=== PATIENT | female | born 1940 | race Caucasian/White ===

== ENCOUNTER → 2020-03-28 10:53 | Outpatient (BNVA) | payer MEDICARE, SELFPAY | PROVIDERS: Visit Provider Internal Medicine | DX: J44.9 Chronic obstructive pulmonary disease, unspecified (principal); J96.92 Respiratory failure, unspecified with hypercapnia; J96.91 Respiratory failure, unspecified with hypoxia; Z99.81 Dependence on supplemental oxygen; Z79.51 Long term (current) use of inhaled steroids | CPT/HCPCS: 99213 ==

== ENCOUNTER → 2020-06-22 11:39 | Outpatient (BNVA) | payer MEDICARE, SELFPAY | PROVIDERS: Visit Provider Internal Medicine | DX: Z13.89 Encounter for screening for other disorder (principal) | CPT/HCPCS: Q3014 ==

== ENCOUNTER 2020-07-28 04:45 | Emergency (ER) | payer MEDICARE, SELFPAY ==
[2020-07-28 05:11] VITALS: BP 130/69; PULSE 77; RESP 16; TEMP 36.8; O2SAT 96; BMI 28.5
[2020-07-28 06:00] VITALS: PULSE 80; RESP 16; TEMP 36.8; O2SAT 96
--- NOTE | 2020-07-28 06:37 | ED.SKABFB ---
HPI - Skin/Abscess/Foreign Bdy General Chief complaint: Back Pain/Injury Stated complaint: MID BACK PAIN FOR DAYS, NO INJURY Time Seen by Provider: 07/28/20 06:37 Source: patient Mode of arrival: ambulatory Limitations: no limitations History of Present Illness HPI narrative: 80 yo female L back pain and rash x 2 days - no prior episodes of shingles on tramadol at home for pain MD complaint: rash Onset (ago): day(s) (2) Location: back Severity: moderate Quality: burning Pain Consistency: constant Relieving factors: none Exacerbating factors: none Context: none Associated symptoms: denies other symptoms Treatments prior to arrival: none Related Data Home Medications Medication Instructions Recorded Confirmed duloxetine 30 mg capsule,delayed mg PO 03/07/20 03/28/20 release metoprolol succinate 50 mg mg PO 03/07/20 03/28/20 tablet,extended release 24 hr calcium carbonate 600 mg calcium 600 mg PO DAILY 03/28/20 03/28/20 (1,500 mg) tablet furosemide 40 mg tablet 40 mg PO Q OTHER DAY 07/04/20 prednisone 10 mg tablet mg PO 07/04/20 clonazepam 1 mg tablet 1 mg PO BID 07/18/20 Previous Rx's Medication Instructions Recorded prednisone 5 mg tablet 15 mg PO DAILY 30 Days #90 tab 05/20/20 ipratropium 0.5 mg-albuterol 3 mg 3 ml INHALATION 6XD #180 ml 07/15/20 (2.5 mg base)/3 mL nebulization soln omeprazole 20 mg capsule,delayed 20 mg PO DAILY #90 cap 07/16/20 release albuterol sulfate 90 mcg/actuation 2 puff INHALATION Q4H 90 Days #3 ea 07/20/20 aerosol inhaler prednisone 40 mg PO DAILY 5 Days #10 tab 07/28/20 valacyclovir 1,000 mg PO TID 10 Days #30 tab 07/28/20 Allergies Allergy/AdvReac Type Severity Reaction Status Date / Time Penicillins Allergy Mild ANAPHYLAXIS Verified 07/04/20 13:19 levofloxacin [Levaquin] Allergy Unknown Unknown Verified 07/04/20 13:19 morphine [Morphine] Allergy Unknown SWELLING Verified 07/04/20 13:19 Review of Systems Review of Systems: Constitutional : No Fever, No Chills ENT/Mouth : No sore throat, No Rhinorrhea Eyes: No Eye Pain, No Swelling, No Redness Cardiovascular : No Chest Pain, No SOB Respiratory : No Cough, No Sputum Gastrointestinal : No Nausea, No Vomiting, No Diarrhea, No abdominal Pain Genitourinary : No Dysuria, No Hematuria Musculoskeletal : No joint pain, No Myalgias, No Joint Swelling Skin : No Skin Lesions, positive skin rash Neuro : No Weakness, No Numbness, No Headache Psych : No Anxiety, No Depression Heme/Lymph: No Bruising, No Bleeding,No Lymphadenopathy Endocrine : No Polyuria, No Polydipsia All other systems reviewed and are negative [facility] Past Medical History Attestation statement: The following information was validated with the patient. Medical History COPD (chronic obstructive pulmonary disease) COPD (chronic obstructive pulmonary disease) Respiratory failure with hypoxia and hypercapnia Family History Family History (Updated 07/04/20 @ 13:24 by Sandrita Yousif) Mother No problems noted. Father No problems noted. Social History Social History Alcohol intake: never Smoking Status: Never smoker Smoked in Last 30 Days: No Use of substances other than those prescribed or required for medical reasons: No Advance Directives: No Physical Exam Vital Signs: Vital Signs: Last Vital Signs Temp 98.2 F 07/28/20 06:00 Pulse 80 07/28/20 06:00 Resp 16 07/28/20 06:00 BP 130/69 07/28/20 05:11 Pulse Ox 96 07/28/20 06:00 Body Mass Index 28.5 Appearance: Alert. Oriented X3. No acute distress. Eyes: Pupils equal, round and reactive to light. ENT: Pharynx normal. Neck: Normal inspection. Neck supple. CVS: Normal heart rate and rhythm. Pulses normal. Respiratory: No respiratory distress. Breath sounds normal. Abdomen: Soft and nontender. Back: L flank dermatoma pattern under scapula vesicles noted - shingles Skin: Skin warm and dry. Normal skin color. Normal skin turgor. Extremities: No lower extremity edema. No calf ttp Neuro: Oriented X 3. No motor deficit. No sensory deficit. MDM - Skin/Abscess/Foreign Bdy MDM Narrative Medical decision making narrative: 80 yo female with multiple medical problems here with shingles on left flank x 2 days, will start on valtrex and up her steroids, already on tramadol at home - does not tolerate opiates, given precautions to return Discharge Plan Discharge Clinical Impression: Shingles Qualifiers: Herpes zoster complications: without complications Qualified Code(s): B02.9 - Zoster without complications Patient Disposition: Home, Self-Care Instructions: Shingles (ED) Additional Instructions: return to ED for any worsening symptoms or concerns Prescriptions: New prednisone 20 mg tablet 40 mg PO DAILY 5 Days Qty: 10 RF: 0 valacyclovir 1 gram tablet 1,000 mg PO TID 10 Days Qty: 30 RF: 0 No Action prednisone 5 mg tablet 15 mg PO DAILY 30 Days Qty: 90 RF: 1 ipratropium-albuterol 0.5 mg-3 mg(2.5 mg base)/3 mL solution for nebulization 3 ml inhalation 6XD Qty: 180 RF: 0 omeprazole 20 mg capsule,delayed release(DR/EC) 20 mg PO DAILY Qty: 90 RF: 1 albuterol sulfate 90 mcg/actuation HFA aerosol inhaler 2 puff inhalation Q4H 90 Days Qty: 3 RF: 1 calcium carbonate [Calcium 600] 600 mg calcium (1,500 mg) tablet 600 mg PO DAILY RF: 0 duloxetine 30 mg capsule,delayed release(DR/EC) PO RF: 0 metoprolol succinate 50 mg tablet extended release 24 hr PO RF: 0 Referrals: Rolo Ford MD [Primary Care Provider] - 2 days (if not better)
== END 2020-07-28 07:39 | disposition home or self-care (01) ==
PROVIDERS: Emergency Provider Emergency Medicine; PCP Internal Medicine
DX: B02.9 Zoster without complications (principal); J44.9 Chronic obstructive pulmonary disease, unspecified
CPT/HCPCS: 99283; 99284

== ENCOUNTER 2020-08-04 06:54 | Inpatient (IN) | payer MEDICARE, SELFPAY ==
[2020-08-04] VITALS (9 sets, daily range): BP systolic 121–165; BP diastolic 65–93; PULSE 98–111; RESP 16–24; TEMP 36.1–36.8; O2SAT 94–100; BMI 28.5
--- NOTE | ~2020-08-04 | XR_ITS ---
EXAMINATION: XR CHEST CLINICAL INFORMATION: Dyspnea COMPARISON: March 06, 2019 and November 23, 2018 TECHNIQUE: AP portable view of the chest was obtained. FINDINGS: Within the left upper lobe there is a 2.3 cm density for which malignancy cannot be excluded. There is stable left breast increased markings. There is some diminished vascularity within the upper lobes with some mild hyperinflation consistent with some degree of COPD. Heart normal size. No evidence of pulmonary edema. Multiple old healed rib fractures present. There is scoliosis of the thoracic spine convex left. Degenerative change of both shoulders evident as well as calcific tendinitis of the right shoulder. XR/XR chest 1V IMPRESSION: 2.3 cm left upper lobe lesion for which malignancy cannot be excluded. CT would be of help in further evaluation. COPD.
--- NOTE | 2020-08-04 07:00 | ED_ITS ---
HPI - SOB/Dyspnea General Chief Complaint: Dyspnea Stated Complaint: SOB W/ANXIETY Time Seen by Provider: 08/04/20 07:00 Source: patient and EMS Mode of arrival: EMS Limitations: no limitations History of Present Illness MD elicited complaint: shortness of breath, cough and anxiety Pertinent past history: COPD and asthma Onset (ago): day(s) (1) Context: recent illness, anxiety and other (notes her concentrator stopped working yesterday and the company gave her a hard time) Timing: progressively worsening Severity: moderate Exacerbating factors: exertion, movement and coughing Relieving factors: oxygen, rest and bronchodilators Known history of: COPD and asthma Associated symptoms: other (has significant L sided pain at the site of her shingles rash) Treatment prior to arrival: oxygen Related Data Home Medications Medication Instructions Recorded Confirmed duloxetine 30 mg capsule,delayed 30 mg PO DAILY 03/07/20 08/04/20 release metoprolol succinate 50 mg 50 mg PO DAILY 03/07/20 08/04/20 tablet,extended release 24 hr calcium carbonate 600 mg calcium 600 mg PO DAILY 03/28/20 08/04/20 (1,500 mg) tablet furosemide 40 mg tablet 40 mg PO Q OTHER DAY 07/04/20 08/04/20 prednisone 10 mg tablet 10 mg PO DAILY 07/04/20 08/04/20 tramadol 50 mg tablet 50 mg PO DAILY PRN 08/02/20 08/04/20 albuterol sulfate 2 puff INHALATION Q4H PRN 08/04/20 08/04/20 cholecalciferol (vitamin D3) 25 mcg PO DAILY 08/04/20 08/04/20 ipratropium-albuterol 3 ml INHALATION Q4H PRN 08/04/20 08/04/20 prednisone 5 mg PO DAILY 08/04/20 08/04/20 vitamin B complex [Super B Complex] 1 cap PO DAILY 08/04/20 08/04/20 Previous Rx's Medication Instructions Recorded omeprazole 20 mg capsule,delayed 20 mg PO DAILY #90 cap 07/16/20 release valacyclovir 1,000 mg PO TID 10 Days #30 tab 07/28/20 clonazepam 1 mg tablet 1 mg PO BID #30 tab 08/02/20 albuterol sulfate 90 mcg/actuation 2 puff INHALATION Q4-6H PRN 30 08/04/20 aerosol inhaler Days #8.5 g Allergies Allergy/AdvReac Type Severity Reaction Status Date / Time Penicillins Allergy Mild ANAPHYLAXIS Verified 08/03/20 06:05 levofloxacin [Levaquin] Allergy Unknown Unknown Verified 08/03/20 06:05 morphine [Morphine] Allergy Unknown SWELLING Verified 08/03/20 06:05 Review of Systems Review of Systems: Constitutional : No Fever, No Chills ENT/Mouth : No sore throat, No Rhinorrhea, No Swallowing Difficulty Eyes: No Eye Pain, No Swelling, No Redness Cardiovascular : No Chest Pain, positive SOB, No Orthopnea, no Edema Respiratory : pos Cough, No Sputum, No Wheezing, positive dyspnea Gastrointestinal : No Nausea, No Vomiting, No Diarrhea, No abdominal Pain, No Hematochezia, No Melena Genitourinary : No Dysuria, No Urinary Frequency, No Hematuria Musculoskeletal : No joint pain, No Myalgias, pos back pain Skin : pos Skin Lesions, pos rash Neuro : No Weakness, No Numbness, No Dizziness, No Headache Psych : No Anxiety/Panic, No Depression Heme/Lymph: No Bruising, No Lymphadenopathy Endocrine : No Polyuria, No Polydipsia All other systems reviewed and are negative [facility] Past Medical History Attestation statement: The following information was validated with the patient. Medical History COPD (chronic obstructive pulmonary disease) COPD (chronic obstructive pulmonary disease) Herpes zoster Respiratory failure with hypoxia and hypercapnia Family History Family History Mother No problems noted. Father No problems noted. Social History Social History Alcohol intake: never Smoking Status: Never smoker Use of substances other than those prescribed or required for medical reasons: No Advance Directives: No Advance Directives Information Provided: No Physical Exam Vital Signs: Vital Signs: Last Vital Signs Temp 98.3 F 08/04/20 07:12 Pulse 98 08/04/20 08:00 Resp 18 08/04/20 08:00 BP 148/65 H 08/04/20 07:12 Pulse Ox 97 08/04/20 08:00 Body Mass Index 28.5 Appearance: Alert. Oriented X3. Anxious, mild acute distress. Eyes: Pupils equal, round and reactive to light. ENT: Pharynx normal. Neck: Normal inspection. Neck supple. CVS: Normal heart rate and rhythm. Pulses normal. Respiratory: mild respiratory distress - short phrases, tachypnea. Breath sounds decreased throughout. Abdomen: Soft and nontender. Skin: Skin warm and dry. desquamating vesicular rash noted on L trunk at the site of her prior shingles there are areas of some scant drainage as well as some mild sweling and moderate erythema particularly under breast with scant bloody ooze as well appears secondarily infected Extremities: No lower extremity edema. No calf ttp Neuro: Oriented X 3. No motor deficit. No sensory deficit. Course Course Course Narrative: start on ceftriaxone and doxy for COPD and secondary cellulitis of her zoster still having pain at zoster site at this time will request admission for shingles with secondary celluitis and COPD MDM - SOB/Dyspnea MDM Narrative Medical decision making narrative: 80 yo female with COPD, asthma recent dx of shingles placed on valtrex - rash is very painful and the patient notes that it is peeling - there is likely some secondary infection will start on ancef and attempt to get topical acyclovir ointment, also has COPD with increased dyspnea and work of breathing due to her concentrator failing yesterday she went from 2L to 4L NC - neb, IV steroids labs, CXR ordered Lab Data Result diagrams: 08/04/20 08:04 08/04/20 08:05 Labs: Lab Results 08/04/20 08/04/20 08/04/20 Range/Units 08:04 08:04 08:04 WBC 12.2 H (4.8-10.8) X10*3/uL RBC 4.00 L (4.20-5.50) X10*6/uL Hgb 11.8 L (12.0-16.0) g/dl Hct 38.3 (37-47) % MCV 95.8 (80-98) fL MCH 29.5 (27.0-33.0) pg MCHC 30.8 L (31.0-35.0) g/dl RDW 13.5 (11.0-16.0) % Plt Count 245 (160-400) X10*3/uL MPV 9.9 (9.4-12.3) fL Immature Gran % (Auto) 0.3 (0.0-0.4) % Neut % (Auto) 78.5 H (45-73) % Lymph % (Auto) 10.7 L (20-40) % [place] % (Auto) 9.4 (2-11) % Eos % (Auto) 0.8 (0-4) % Baso % (Auto) 0.3 (0-2) % Lymph # (Auto) 1.3 (1.2-4.9) X10*3/uL [place] # (Auto) 1.1 (0.1-1.2) X10*3/uL Eos # (Auto) 0.1 (0.0-0.4) X10*3/uL Baso # (Auto) 0.0 (0.0-0.2) X10*3/uL Abs Immat Gran (auto) 0.04 H (0.00-0.03) X10*3/uL Absolute Neuts (auto) 9.6 H (2.0-8.3) X10*3/uL Absolute Nucleated RBC 0.000 (0.0-0.012) X10*3/uL Nucleated RBC % (auto) 0.0 (0.0-0.2) /100WBC PT 11.4 (10.8-13.0) SEC INR 1.0 (0.9-1.1) APTT 30.6 (24.1-38.0) SEC VBG pH (7.32-7.43) VBG pCO2 mmHg VBG pO2 mmHg VBG HCO3 mmol/L VBG O2 Saturation % VBG Base Excess mmol/L Sodium (135-145) mmol/L Potassium (3.3-5.1) mmol/L Chloride (96-108) mmol/L Carbon Dioxide (22-29) mmol/L Anion Gap (12-20) BUN (9-16) mg/dL Creatinine (0.5-1.4) mg/dL Estim Creat Clear Calc Estimated GFR Random Glucose (60-115) mg/dL Lactic Acid (0.5-2.0) mmol/L Calcium (8.4-10.2) mg/dL Magnesium (1.6-2.6) mg/dL Total Bilirubin (0.0-1.0) mg/dL Direct Bilirubin (0.0-0.5) mg/dL AST (5-31) U/L ALT (0-31) U/L Alkaline Phosphatase (39-117) U/L Troponin I High Sens (<3.5-17.0) ng/L B-Natriuretic Peptide 137 H (<100) pg/mL Total Protein (6.5-8.0) g/dL Albumin (3.5-5.0) g/dL 08/04/20 08/04/20 08/04/20 Range/Units 08:04 08:04 08:05 WBC (4.8-10.8) X10*3/uL RBC (4.20-5.50) X10*6/uL Hgb (12.0-16.0) g/dl Hct (37-47) % MCV (80-98) fL MCH (27.0-33.0) pg MCHC (31.0-35.0) g/dl RDW (11.0-16.0) % Plt Count (160-400) X10*3/uL MPV (9.4-12.3) fL Immature Gran % (Auto) (0.0-0.4) % Neut % (Auto) (45-73) % Lymph % (Auto) (20-40) % Weston % (Auto) (2-11) % Eos % (Auto) (0-4) % Baso % (Auto) (0-2) % Lymph # (Auto) (1.2-4.9) X10*3/uL Weston # (Auto) (0.1-1.2) X10*3/uL Eos # (Auto) (0.0-0.4) X10*3/uL Baso # (Auto) (0.0-0.2) X10*3/uL Abs Immat Gran (auto) (0.00-0.03) X10*3/uL Absolute Neuts (auto) (2.0-8.3) X10*3/uL Absolute Nucleated RBC (0.0-0.012) X10*3/uL Nucleated RBC % (auto) (0.0-0.2) /100WBC PT (10.8-13.0) SEC INR (0.9-1.1) APTT (24.1-38.0) SEC VBG pH 7.36 (7.32-7.43) VBG pCO2 78 mmHg VBG pO2 39 mmHg VBG HCO3 45 mmol/L VBG O2 Saturation 57.0 % VBG Base Excess 16.0 mmol/L Sodium 145 (135-145) mmol/L Potassium 4.0 (3.3-5.1) mmol/L Chloride 95 L (96-108) mmol/L Carbon Dioxide 37 H (22-29) mmol/L Anion Gap 17 (12-20) BUN 24 H (9-16) mg/dL Creatinine 0.70 (0.5-1.4) mg/dL Estim Creat Clear Calc 52.1 Estimated GFR > 60 Random Glucose 144 H (60-115) mg/dL Lactic Acid (0.5-2.0) mmol/L Calcium 9.2 (8.4-10.2) mg/dL Magnesium 2.3 (1.6-2.6) mg/dL Total Bilirubin 0.9 (0.0-1.0) mg/dL Direct Bilirubin 0.4 (0.0-0.5) mg/dL AST 34 H (5-31) U/L ALT 20 (0-31) U/L Alkaline Phosphatase 63 (39-117) U/L Troponin I High Sens 54.3 H (<3.5-17.0) ng/L B-Natriuretic Peptide (<100) pg/mL Total Protein 7.1 (6.5-8.0) g/dL Albumin 4.1 (3.5-5.0) g/dL 08/04/20 Range/Units 08:05 WBC (4.8-10.8) X10*3/uL RBC (4.20-5.50) X10*6/uL Hgb (12.0-16.0) g/dl Hct (37-47) % MCV (80-98) fL MCH (27.0-33.0) pg MCHC (31.0-35.0) g/dl RDW (11.0-16.0) % Plt Count (160-400) X10*3/uL MPV (9.4-12.3) fL Immature Gran % (Auto) (0.0-0.4) % Neut % (Auto) (45-73) % Lymph % (Auto) (20-40) % Weston % (Auto) (2-11) % Eos % (Auto) (0-4) % Baso % (Auto) (0-2) % Lymph # (Auto) (1.2-4.9) X10*3/uL [place]on # (Auto) (0.1-1.2) X10*3/uL Eos # (Auto) (0.0-0.4) X10*3/uL Baso # (Auto) (0.0-0.2) X10*3/uL Abs Immat Gran (auto) (0.00-0.03) X10*3/uL Absolute Neuts (auto) (2.0-8.3) X10*3/uL Absolute Nucleated RBC (0.0-0.012) X10*3/uL Nucleated RBC % (auto) (0.0-0.2) /100WBC PT (10.8-13.0) SEC INR (0.9-1.1) APTT (24.1-38.0) SEC VBG pH (7.32-7.43) VBG pCO2 mmHg VBG pO2 mmHg VBG HCO3 mmol/L VBG O2 Saturation % VBG Base Excess mmol/L Sodium (135-145) mmol/L Potassium (3.3-5.1) mmol/L Chloride (96-108) mmol/L Carbon Dioxide (22-29) mmol/L Anion Gap (12-20) BUN (9-16) mg/dL Creatinine (0.5-1.4) mg/dL Estim Creat Clear Calc Estimated GFR Random Glucose (60-115) mg/dL Lactic Acid 1.7 (0.5-2.0) mmol/L Calcium (8.4-10.2) mg/dL Magnesium (1.6-2.6) mg/dL Total Bilirubin (0.0-1.0) mg/dL Direct Bilirubin (0.0-0.5) mg/dL AST (5-31) U/L ALT (0-31) U/L Alkaline Phosphatase (39-117) U/L Troponin I High Sens (<3.5-17.0) ng/L B-Natriuretic Peptide (<100) pg/mL Total Protein (6.5-8.0) g/dL Albumin (3.5-5.0) g/dL ECG Data Attestation: I personally reviewed and interpreted this ECG as follows: ECG interpretation date: 08/04/20 ECG interpretation time: 07:50 Interpretation: Rate: 111 Rhythm: sinus tachycardia [place]: normal Normal P waves. Normal SHANNON. Normal QRS complex. poor R wave progression ST T wave : nonspecific, no ZURI qTC: normal prior studies: no acute ischemia The study has been interpreted contemporaneously by me. . Discharge Plan Discharge Clinical Impression: Elevated troponin COPD (chronic obstructive pulmonary disease) Qualifiers: COPD type: COPD with acute exacerbation Qualified Code(s): J44.1 - Chronic obstructive pulmonary disease with (acute) exacerbation Shingles Qualifiers: Herpes zoster complications: with other complications Qualified Code(s): B02.8 - Zoster with other complications Cellulitis Qualifiers: Site of cellulitis: trunk Site of cellulitis of trunk: chest wall Qualified Code(s): L03.313 - Cellulitis of chest wall Patient Disposition: Admitted As Inpatient
--- NOTE | 2020-08-04 07:06 | ECG_ITS ---
Test Reason : SOB Blood Pressure : / mmHG Vent. Rate : 111 BPM Atrial Rate : 111 BPM P-R Int : 118 ms QRS Dur : 066 ms QT Int : 320 ms P-R-T Axes : 061 014 067 degrees QTc Int : 435 ms Sinus tachycardia Low voltage QRS Cannot rule out Anteroseptal infarct (cited on or before 23-NOV-2018) Abnormal ECG When compared with ECG of 23-NOV-2018 13:02, No significant change was found Referred By: Vanesa Galvez Electronically Signed By:NICOLE MCALLISTER MD
[2020-08-04] MEDS: Albuterol Sulfate (0.083%) 2.5 MG/3 ML VIAL.NEB 5 MG INHALE (07:25)
[2020-08-04] MEDS: HYDROcodone Bit/Acetam 5/325 TABLET 1 TAB PO (07:35)
[2020-08-04] MEDS: methylPREDNISolone Sod Succ/PF 125 MG/2 ML VIAL 60 MG IVPUSH (08:10)
[2020-08-04 08:13] LABS: MANUAL DIFF FLAG NO
[2020-08-04 08:15] LABS: Basophils Percent Auto 0.3 % (0-2); Eosinophils Absolute Auto 0.1 X10*3/uL (0.0-0.4); Eosinophils Percent Auto 0.8 % (0-4); Hematocrit 38.3 % (37-47); Hemoglobin 11.8 g/dl (12.0-16.0); Imm Gran Abs Auto 0.04 X10*3/uL (0.00-0.03); Imm Gran Pct Auto 0.3 % (0.0-0.4); Lymphocytes Absolute Auto 1.3 X10*3/uL (1.2-4.9); Lymphocytes Percent Auto 10.7 % (20-40); Mean Corpuscular HGB Conc 30.8 g/dl (31.0-35.0); Mean Corpuscular Hemoglobin 29.5 pg (27.0-33.0); Mean Corpuscular Volume 95.8 fL (80-98); Mean Platelet Volume 9.9 fL (9.4-12.3); Monocytes Absolute Auto 1.1 X10*3/uL (0.1-1.2); Monocytes Percent Auto 9.4 % (2-11); Neutrophils Absolute Auto 9.6 X10*3/uL (2.0-8.3); Neutrophils Percent Auto 78.5 % (45-73); Platelet Count 245 X10*3/uL (160-400); Red Cell Distribution Width 13.5 % (11.0-16.0); White Blood Count 12.2 X10*3/uL (4.8-10.8)
[2020-08-04 08:16] LABS: HCO3 VBG 45 mmol/L; PCO2 VBG 78 mmHg; PO2 VBG 39 mmHg; pH VBG 7.36 (7.32-7.43)
[2020-08-04 08:23] LABS: Prothrombin Time 11.4 SEC (10.8-13.0)
[2020-08-04 08:26] LABS: Partial Thromboplastin Time 30.6 SEC (24.1-38.0)
[2020-08-04 08:28] LABS: Lactic Acid 1.7 mmol/L (0.5-2.0)
[2020-08-04] MEDS: Acyclovir 5 % Oint 15 GM TUBE TOPICAL (08:44)
[2020-08-04 08:53] LABS: Alanine Aminotransferase 20 U/L (0-31); Albumin Level 4.1 g/dL (3.5-5.0); Alkaline Phosphatase 63 U/L (39-117); Anion Gap 17 (12-20); Aspartate Amino Transferase 34 U/L (5-31); Bilirubin Direct 0.4 mg/dL (0.0-0.5); Bilirubin Total 0.9 mg/dL (0.0-1.0); Blood Urea Nitrogen 24 mg/dL (9-16); Calcium 9.2 mg/dL (8.4-10.2); Carbon Dioxide 37 mmol/L (22-29); Chloride 95 mmol/L (96-108); Creatinine Clr Calc Pharmacy 52.1; Estimated Glomerular Filt Rate > 60; Glucose Random 144 mg/dL (60-115); Magnesium 2.3 mg/dL (1.6-2.6); Sodium 145 mmol/L (135-145); Total Protein 7.1 g/dL (6.5-8.0)
[2020-08-04 08:53] LABS: B Type Natriuretic Peptide 137 pg/mL (<100)
[2020-08-04 08:54] LABS: Troponin-I High Sensitivity 54.3 ng/L (<3.5-17.0)
[2020-08-04] MEDS: cefTRIAXone sodium 1 GM in 0.9 % Sodium Chloride 50 ML IV (09:00)
[2020-08-04] MEDS: Doxycycline Hyclate 100 MG in 0.9 % Sodium Chloride 250 ML 166.67 MG IV (09:30)
[2020-08-04 09:40] LABS: COVID-19 Test Negative (Negative); IDNOW Serial# 9DD0AD1C
[2020-08-04] MEDS: oxyCODONE HCl Immed Release 5 MG TABLET PO ×3 (10:21→20:07)
[2020-08-04 12:40] LABS: Troponin-I High Sensitivity 50.6 ng/L (<3.5-17.0)
--- NOTE | 2020-08-04 12:50 | PM.IMHP ---
History of Present Illness Date of Service: 08/04/20 Chief Complaint: shortness of breath, left side pain from shingles This is an 80 year old female who presented to the ED with shortness of breath. She states that her concentrator broke and since that time she has been feeling short of breath. She denies any cough, fever, chills. Prior to this she had been doing very well with her COPD. She was diagnosed with shingles on July 28 and prescribed valacyclovir. She reports ongoing pain. In the emergency department she had a white count of 12.2. Troponin was 54.3 and repeat was 50.6. She denies any chest pain. Was concern that her previous herpes zoster was infected and she was started on antibiotics. She required multiple doses of pain medication. For this reason decision was made to admit her for further management. Review of Systems Review of Systems: Yes all other systems are reviewed and are negative Constitutional: Constitutional: Denies chills and Denies fever(s) Cardiovascular: Cardiovascular: Denies chest pain and Reports dyspnea Respiratory: Respiratory: Denies cough and Reports dyspnea Gastrointestinal: Gastrointestinal: Denies abdominal pain [facility] Medical History (Updated 08/04/20 @ 13:20 by DIONI Bhat) COPD (chronic obstructive pulmonary disease) COPD (chronic obstructive pulmonary disease) Generalized anxiety disorder Herpes zoster Respiratory failure with hypoxia and hypercapnia SVT (supraventricular tachycardia) Family History Mother No problems noted. Father No problems noted. Surgical History (Updated 08/04/20 @ 13:20 by DIONI Bhat) H/O cataract extraction H/O right knee surgery History of bunionectomy Hx of cholecystectomy Social History (Updated 08/04/20 @ 13:20 by DIONI Bhta) Alcohol intake: never Smoking Status: Former smoker Use of substances other than those prescribed or required for medical reasons: No Advance Directives: No Advance Directives Information Provided: No Meds Allergies Allergy/AdvReac Type Severity Reaction Status Date / Time Penicillins Allergy Mild ANAPHYLAXIS Verified 08/03/20 06:05 levofloxacin [Levaquin] Allergy Unknown Unknown Verified 08/03/20 06:05 morphine [Morphine] Allergy Unknown SWELLING Verified 08/03/20 06:05 Active Medications: Current Medications Generic Name Dose Route Start Last Admin Trade Name Ivan PRN Reason Stop Dose Admin Cefazolin Sodium 1 gm/ Sodium 50 mls @ 100 mls/hr 08/04/20 12:45 Chloride IV Q8H [facility] Pharmacy Consult 1 each 08/04/20 07:05 Consult Rx Perform Med Rec MISCELLANE ONCE PRN Consult order Home Medications Medication Instructions Recorded Confirmed Last Taken Type duloxetine 30 mg capsule,delayed 30 mg PO DAILY 03/07/20 08/04/20 08/03/20 History release metoprolol succinate 50 mg 50 mg PO DAILY 03/07/20 08/04/20 08/03/20 History tablet,extended release 24 hr calcium carbonate 600 mg calcium 600 mg PO DAILY 03/28/20 08/04/20 08/03/20 History (1,500 mg) tablet furosemide 40 mg tablet 40 mg PO Q OTHER DAY 07/04/20 08/04/20 Unknown History prednisone 10 mg tablet 10 mg PO DAILY 07/04/20 08/04/20 08/03/20 History tramadol 50 mg tablet 50 mg PO DAILY PRN 08/02/20 08/04/20 Unknown History albuterol sulfate 2 puff INHALATION Q4H PRN 08/04/20 08/04/20 08/04/20 History cholecalciferol (vitamin D3) 25 mcg PO DAILY 08/04/20 08/04/20 08/03/20 History ipratropium-albuterol 3 ml INHALATION Q4H PRN 08/04/20 08/04/20 08/04/20 History prednisone 5 mg PO DAILY 08/04/20 08/04/20 08/03/20 History vitamin B complex [Super B Complex] 1 cap PO DAILY 08/04/20 08/04/20 Unknown History Physical Exam Vital Signs and Narrative: Vital Signs: Last Vital Signs Temp 98.2 F 08/04/20 12:40 Pulse 106 H 08/04/20 12:40 Resp 24 H 08/04/20 12:40 BP 152/83 H 08/04/20 12:40 Pulse Ox 98 08/04/20 12:40 Body Mass Index 28.5 Const: Nutritional Appearance: well nourished Orientation/consciousness: patient oriented x3 HENMT: Head: Yes normocephalic and Yes atraumatic Eyes: Sclerae: sclerae normal Chest: Chest palpation & inspection: normal inspection of the chest Resp: Effort & Inspection: no respiratory distress and tachypneic Auscultation: no wheezes and diminished lung sounds Cardio: Rate: regular rate Rhythm: regular rhythm GI: Palpation (GI): Soft to palpation and nontender Skin: Other: Neuro: General: patient oriented x3 Cranial nerves: Yes CN's II-XII intact bilaterally and Yes Bilaterally intact EOM present Extrem: General: Yes normal to inspection Results Labs CBC and Chem 7: 08/04/20 08:04 08/04/20 08:05 Labs: Laboratory Results - last 24 hr 08/04/20 08/04/20 08/04/20 08:04 08:04 08:04 MCV 95.8 MCH 29.5 MCHC 30.8 L RDW 13.5 Plt Count 245 MPV 9.9 Immature Gran % (Auto) 0.3 Neut % (Auto) 78.5 H Lymph % (Auto) 10.7 L [place] % (Auto) 9.4 Eos % (Auto) 0.8 Baso % (Auto) 0.3 Lymph # (Auto) 1.3 [place] # (Auto) 1.1 Eos # (Auto) 0.1 Baso # (Auto) 0.0 Abs Immat Gran (auto) 0.04 H Absolute Neuts (auto) 9.6 H Absolute Nucleated RBC 0.000 Nucleated RBC % (auto) 0.0 PT 11.4 INR 1.0 APTT 30.6 VBG pH VBG pCO2 VBG pO2 VBG HCO3 VBG O2 Saturation VBG Base Excess Anion Gap Estim Creat Clear Calc Estimated GFR Random Glucose Lactic Acid Calcium Magnesium Total Bilirubin Direct Bilirubin AST ALT Alkaline Phosphatase Troponin I High Sens B-Natriuretic Peptide 137 H Total Protein Albumin COVID-19 ([facility]) COVID-19 Clin Com 08/04/20 08/04/20 08/04/20 08:04 08:04 08:05 MCV MCH MCHC RDW Plt Count MPV Immature Gran % (Auto) Neut % (Auto) Lymph % (Auto) [place] % (Auto) Eos % (Auto) Baso % (Auto) Lymph # (Auto) [place] # (Auto) Eos # (Auto) Baso # (Auto) Abs Immat Gran (auto) Absolute Neuts (auto) Absolute Nucleated RBC Nucleated RBC % (auto) PT INR APTT VBG pH 7.36 VBG pCO2 78 VBG pO2 39 VBG HCO3 45 VBG O2 Saturation 57.0 VBG Base Excess 16.0 Anion Gap 17 Estim Creat Clear Calc 52.1 Estimated GFR > 60 Random Glucose 144 H Lactic Acid Calcium 9.2 Magnesium 2.3 Total Bilirubin 0.9 Direct Bilirubin 0.4 AST 34 H ALT 20 Alkaline Phosphatase 63 Troponin I High Sens 54.3 H B-Natriuretic Peptide Total Protein 7.1 Albumin 4.1 COVID-19 ([facility]) COVID-19 Clin Com 08/04/20 08/04/20 08/04/20 08:05 08:14 11:57 MCV MCH MCHC RDW Plt Count MPV Immature Gran % (Auto) Neut % (Auto) Lymph % (Auto) [place] % (Auto) Eos % (Auto) Baso % (Auto) Lymph # (Auto) [place] # (Auto) Eos # (Auto) Baso # (Auto) Abs Immat Gran (auto) Absolute Neuts (auto) Absolute Nucleated RBC Nucleated RBC % (auto) PT INR APTT VBG pH VBG pCO2 VBG pO2 VBG HCO3 VBG O2 Saturation VBG Base Excess Anion Gap Estim Creat Clear Calc Estimated GFR Random Glucose Lactic Acid 1.7 Calcium Magnesium Total Bilirubin Direct Bilirubin AST ALT Alkaline Phosphatase Troponin I High Sens 50.6 H B-Natriuretic Peptide Total Protein Albumin COVID-19 ([facility]) Negative COVID-19 Clin Com See Note Imaging Radiologist's Impressions: Impressions Chest X-Ray 08/04/20 07:06 IMPRESSION: 2.3 cm left upper lobe lesion for which malignancy cannot be excluded. CT would be of help in further evaluation. COPD. Assessment and Plan (1) Elevated troponin: Status: Acute (2) Herpes zoster: Qualifiers: Herpes zoster complications: without complications Qualified Code(s): B02.9 - Zoster without complications Status: Acute This is an 80-year-old female with a history of oxygen and steroid dependent COPD recently diagnosed with herpes zoster who presents to the emergency department with shortness of breath and pain of the zoster site Shortness of breath r/t broken concentrator at home no pna or copd exacerbation continue home supplemental o2, prn breathing treatments, home inhalers Herpes zoster with superimposed bacterial infection no sepsis, tachycardia, tachypnea secondary to shortness of breath, pain -kefzol -pain management -continue valacyclovir Elevated troponin Cardiac enzymes have remained flat, no chest pain Left upper lobe lesion seen on chest x-ray New when compared to previous chest x-ray. Given significant smoking history concerning for malignancy Will discuss with patient regarding further workup, although given advanced lung dz may not be candidate for intervention COPD Continue supplemental oxygen, uses 2-2.5L at home continue home inhalers, prednision The remainder of her home medications will be continued DVT prophylaxis-heparin Code status-DNR/DNI This case was discussed with Dr. Berry
[2020-08-04] MEDS: Heparin Sodium,Porcine 5,000 UNIT/ML VIAL 5000 UNIT SUBCUT (15:39)
[2020-08-04] MEDS: 0.9 % Sodium Chloride Flush 3 ML SYRINGE IVFLUSH (15:40)
[2020-08-04] MEDS: traMADoL HCL 50 MG TABLET PO (19:22)
[2020-08-04] MEDS: clonazePAM 1 MG TABLET PO (20:07)
[2020-08-04] MEDS: Albuterol/Iprat 2.5/0.5MG 3 ML AMPUL.NEB INHALE (20:51)
[2020-08-05] MEDS: oxyCODONE HCl Immed Release 5 MG TABLET PO ×6 (00:34→21:17)
[2020-08-05 03:47] VITALS: BP 135/66; PULSE 95; RESP 20; TEMP 36.7; O2SAT 94
[2020-08-05] MEDS: Heparin Sodium,Porcine 5,000 UNIT/ML VIAL 5000 UNIT SUBCUT ×2 (03:55→15:40)
[2020-08-05] MEDS: 0.9 % Sodium Chloride Flush 3 ML SYRINGE IVFLUSH ×4 (03:55→20:36)
[2020-08-05 06:39] LABS: MANUAL DIFF FLAG NO
[2020-08-05] MEDS: Omeprazole 20 MG CAPSULE.DR PO (06:40)
[2020-08-05 06:50] LABS: Basophils Percent Auto 0.2 % (0-2); Eosinophils Percent Auto 0.4 % (0-4); Hematocrit 33.6 % (37-47); Hemoglobin 10.5 g/dl (12.0-16.0); Imm Gran Abs Auto 0.05 X10*3/uL (0.00-0.03); Imm Gran Pct Auto 0.5 % (0.0-0.4); Lymphocytes Absolute Auto 1.3 X10*3/uL (1.2-4.9); Lymphocytes Percent Auto 12.2 % (20-40); Mean Corpuscular HGB Conc 31.3 g/dl (31.0-35.0); Mean Corpuscular Hemoglobin 29.7 pg (27.0-33.0); Mean Corpuscular Volume 94.9 fL (80-98); Monocytes Absolute Auto 1.2 X10*3/uL (0.1-1.2); Monocytes Percent Auto 10.9 % (2-11); Neutrophils Absolute Auto 8.3 X10*3/uL (2.0-8.3); Neutrophils Percent Auto 75.8 % (45-73); Platelet Count 238 X10*3/uL (160-400); Red Blood Count 3.54 X10*6/uL (4.20-5.50); Red Cell Distribution Width 13.3 % (11.0-16.0); White Blood Count 10.9 X10*3/uL (4.8-10.8)
[2020-08-05 07:28] LABS: Anion Gap 12 (12-20); Blood Urea Nitrogen 21 mg/dL (9-16); Carbon Dioxide 39 mmol/L (22-29); Chloride 96 mmol/L (96-108); Creatinine Clr Calc Pharmacy 58.8; Estimated Glomerular Filt Rate > 60; Glucose Random 87 mg/dL (60-115); Sodium 143 mmol/L (135-145)
--- NOTE | 2020-08-05 07:33 | MHC.PIE ---
Pt reporting pain 7/10 2 hours earlier than next scheduled oxycodone. MD aware, changed frequency of oxycodone to Q4. Administered Q4 with better effect. Pt states pain is better managed at 4/10.
[2020-08-05 08:00] VITALS: BP 173/82; PULSE 98; RESP 22; TEMP 37.1; O2SAT 92
--- NOTE | 2020-08-05 09:08 | P.PNIM_ITS ---
Subjective Subjective Date of Service: 08/05/20 <DIONI Bhat - Last Filed: 08/05/20 12:45> 08/05/20 <Triston Berry MD - Last Filed: 08/05/20 16:50> Interval History: f/u admission for pain r/t shingles and superimposed bacterial infection Reports episode of SOB overnight, but NC has fallen off. Improved after replacing NC. Ongoing pain r/t shingles. Reports SOB. No cough <DIONI Bhat - Last Filed: 08/05/20 12:45> Review of Systems Review of Systems: Yes all other systems are reviewed and are negative <DIONI Bhat - Last Filed: 08/05/20 12:45> Constitutional Constitutional: Denies chills and Denies fever(s) <DIONI Bhat - Last Filed: 08/05/20 12:45> Cardiovascular Cardiovascular: Denies chest pain <DIONI Bhat - Last Filed: 08/05/20 12:45> Respiratory Respiratory: Denies cough <DIONI Bhat - Last Filed: 08/05/20 12:45> Gastrointestinal Gastrointestinal: Denies abdominal pain <DIONI Bhat - Last Filed: 08/05/20 12:45> Physical Exam Vital Signs: Vital Signs: Last Vital Signs Temp 98.7 F 08/05/20 08:00 Pulse 98 08/05/20 08:00 Resp 22 H 08/05/20 08:00 BP 173/82 H 08/05/20 08:00 Pulse Ox 92 08/05/20 08:00 Body Mass Index 28.5 <DIONI Bhat - Last Filed: 08/05/20 12:45> Const: Nutritional Appearance: well nourished <DIONI Bhat Last Filed: 08/05/20 12:45> Orientation/consciousness: patient oriented x3 <DIONI Bhat - Last Filed: 08/05/20 12:45> HENMT: Head: Yes normocephalic and Yes atraumatic <DIONI Bhat - Last Filed: 08/05/20 12:45> Eyes: Sclerae: sclerae normal <DIONI Bhat Last Filed: 08/05/20 12:45> Chest: Chest palpation & inspection: normal inspection of the chest <DIONI Bhat Last Filed: 08/05/20 12:45> Resp: Effort & Inspection: normal respiratory effort and no respiratory distress <DIONI Bhat - Last Filed: 08/05/20 12:45> Auscultation: no wheezes and diminished lung sounds <DIONI Bhat - Last Filed: 08/05/20 12:45> Cardio: Rate: regular rate <DIONI Bhat - Last Filed: 08/05/20 12:45> Rhythm: regular rhythm <DIONI Bhat Last Filed: 08/05/20 12:45> GI: Palpation (GI): Soft to palpation and nontender <DIONI Bhat - Last Filed: 08/05/20 12:45> Skin: Other: <DIONI Bhat - Last Filed: 08/05/20 12:45> Neuro: General: patient oriented x3 <DIONI Bhat - Last Filed: 08/05/20 12:45> Cranial nerves: Yes CN's II-XII intact bilaterally and Yes Bilaterally intact EOM present <DIONI Bhat - Last Filed: 08/05/20 12:45> Extrem: General: Yes normal to inspection <DIONI Bhat - Last Filed: 08/05/20 12:45> Objective Data Current Medications Generic Name Dose Route Start Last Admin Trade Name Freq PRN Reason Stop Dose Admin Acetaminophen 650 mg 08/04/20 13:08 Acetaminophen 325 Mg Tablet PO Q6H PRN Pain, Mild (Pain Scale 1-3) Albuterol Sulfate 2 puff 08/04/20 13:08 Albuterol Sulfate 90 Mcg 8 Gm Inhaler INHALE Q4H PRN Shortness Of Breath Or Wheezing Albuterol/Ipratropium 3 ml 08/04/20 13:08 08/04/20 20:51 Albuterol/Iprat 2.5/0.5mg 3 Ml Ampul.Neb INHALE 3 ml Q4H PRN Administration Shortness Of Breath Or Wheezing Calcium Carbonate 750 mg 08/05/20 09:00 Calcium Carbonate 750 Mg Tab.Chew PO DAILY [facility] Clonazepam 1 mg 08/04/20 21:00 08/04/20 20:07 Clonazepam 1 Mg Tablet PO 1 mg BID [facility] Administration Docusate Sodium 100 mg 08/04/20 13:08 Docusate Sodium 100 Mg Capsule PO DAILY PRN Constipation Duloxetine HCl 30 mg 08/05/20 09:00 Duloxetine Hcl 30 Mg Capsule. PO DAILY [facility] Furosemide 40 mg 08/05/20 09:00 Furosemide 40 Mg Tablet PO Q48H [facility] Protocol Heparin Sodium (Porcine) 5,000 unit 08/04/20 14:00 08/05/20 03:55 Heparin Sodium,Porcine 5,000 Unit/Ml Vial SUBCUT 5,000 unit Q12H [facility] Administration Cefazolin Sodium 1 gm/ Sodium 50 mls @ 100 mls/hr 08/04/20 16:00 08/05/20 00:31 Chloride IV Infused Q8H [facility] Infusion Metoprolol Succinate 50 mg 08/05/20 09:00 Metoprolol Succinate Er 50 Mg Tab.Er.24h PO DAILY [facility] Protocol Multivitamins 1 tab 08/05/20 09:00 B-Complex With Vitamin C Tablet PO DAILY [facility] Omeprazole 20 mg 08/05/20 06:30 08/05/20 06:40 Omeprazole 20 Mg Capsule. PO 20 mg DAILY@0630 [facility] Administration Ondansetron HCl 4 mg 08/04/20 13:08 Ondansetron Hcl 4 Mg/2 Ml Vial IVPUSH Q8H PRN Nausea and Vomiting Oxycodone HCl 5 mg 08/05/20 00:07 08/05/20 04:32 Oxycodone Hcl Immed Release 5 Mg Tablet PO 5 mg Q4H PRN Administration Pain, Moderate (Pain Scale 4-6 Pharmacy Consult 1 each 08/04/20 07:05 Consult Rx Perform Med Rec MISCELLANE ONCE PRN Consult order Prednisone 10 mg 08/05/20 09:00 Prednisone 10 Mg Tablet PO DAILY [facility] Sodium Chloride 3 ml 08/04/20 16:00 08/05/20 03:55 0.9 % Sodium Chloride Flush 3 Ml Syringe IVFLUSH 3 ml QSHIFT [facility] Administration Valacyclovir HCl 1,000 mg 08/04/20 15:00 08/04/20 20:06 Valacycyclovir Hcl 1,000 Mg Tablet PO 1,000 mg TID [facility] Administration Vitamin D 25 mcg 08/05/20 09:00 Cholecalciferol (Vitamin D3) 25 Mcg Tablet PO DAILY [facility] <DIONI Bhat - Last Filed: 08/05/20 12:45> Labs CBC & Chem 7: : 08/05/20 06:21 08/05/20 06:21 <DIONI Bhat - Last Filed: 08/05/20 12:45> Assessment and Plan (1) Elevated troponin: Status: Acute <DIONI Bhat - Last Filed: 08/05/20 12:45> (2) Herpes zoster: Status: Acute <DIONI Bhat - Last Filed: 08/05/20 12:45> Assessment and Plan: This is an 80-year-old female with a history of oxygen and steroid dependent COPD recently diagnosed with herpes zoster who presents to the emergency department with shortness of breath and pain of the zoster site Herpes zoster with superimposed bacterial infection no sepsis, tachycardia, tachypnea secondary to shortness of breath, pain -kefzol -pain management -continue valacyclovir Shortness of breath At baseline continue home supplemental o2, prn breathing treatments, home inhalers Elevated troponin Cardiac enzymes have remained flat, no chest pain Left upper lobe lesion New when compared to previous chest x-ray. Given significant smoking history concerning for malignancy Discussed with patient, she is not interested in pursuing any further workup or treatment COPD Continue supplemental oxygen, uses 2-2.5L at home continue home inhalers, prednisone DVT prophylaxis-heparin Code status-DNR/DNI This case was discussed with Dr. Berry <DIONI Bhat - Last Filed: 08/05/20 12:45>
[2020-08-05 09:27] VITALS: BP 173/82; PULSE 98
[2020-08-05] MEDS: clonazePAM 1 MG TABLET PO ×2 (09:27→20:35)
[2020-08-05] MEDS: predniSONE 10 MG TABLET PO (09:27)
[2020-08-05] MEDS: Metoprolol Succinate ER 50 MG TAB.ER.24H PO (09:27)
[2020-08-05] MEDS: Calcium Carbonate 750 MG TAB.CHEW PO (09:27)
[2020-08-05] MEDS: DULoxetine HCl 30 MG CAPSULE.DR PO (09:28)
[2020-08-05] MEDS: Cholecalciferol (Vitamin D3) 25 MCG TABLET PO (09:28)
--- NOTE | 2020-08-05 10:02 | P.CDIC_ITS ---
CDI Concurrent Query Service Date: 08/05/20 Documentation Clarification: Please clarify if you are treating a proba ble/suspected/likely or confirmed: Acute on Chronic Hypoxic Respiratory Failure Chronic Hypoxic Respiratory Failure Chronic Resp. Failure Provider Response: Other Other Diagnosis: Chronic Resp. Failure with hypoxia PLEASE DO NOT DELETE/MODIFY EXISTING CONTENT Additional information is needed in order to code to the highest accuracy and appropriate Severity of Illness (SOI). Please clarify the information noted below in your progress notes and discharge summary. Risk Factors/Clinical Indicators/Treatments 80 year old female admitted with dyspnea, cough, increased work of breathing. Home concentrator failed, usually on home oxygen 2 - 2.5 L Per H&P: Elevated trop, Acute Herpes Zoster with superimposed bacterial infection, tachypnea secondary to SOB, pain, COPD, left upper lobe lesion. Treated with 2 L oxygen NC, IV antibiotic, neb, steroid CDS: Alexandria Maurer RN Contact Number: [phone] Please Review the information above and exercise your independent professional judgment in responding to the query. If you concur, pleas document in the PROGRESS NOTES and DISCHARGE SUMMARY. If you do not agree with the query, please document in the query above. THIS QUERY IS PART OF THE PERMANENT MEDICAL RECORD
[2020-08-05] MEDS: Albuterol Sulfate (0.083%) 2.5 MG/3 ML VIAL.NEB INHALE (10:04)
[2020-08-05 11:58] VITALS: BP 126/65; PULSE 85; RESP 23; TEMP 36.4; O2SAT 91
--- NOTE | 2020-08-05 13:59 | MHC.CM.PN ---
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 MET WITH PATIENT SHE REPORTED SHE LIVES WITH HER SPOUSE, SHE IS INDEPENDENT IN [place] ADLS AND MOBILITY SHE HAS HOME OXYGEN FROM [facility] , , A SHE CURRENTLY HAS NO VNA SHE CONFIRMED HER PCP AND REPORTED THAT SHE WAS DIAGNOSED WITH SHINGLES 07/29/20 AND ON MEDICATION FOR THIS DISCHARGE PLAN HOME WITH HER WITH RESUMPTION FOR HER HOME OXYGEN THROUGH [facility] NEW REFERRAL TO THE [facility] FOR NURSING FOR DIAGNOSIS SIGN SYMPTOM MANAGEMENT DETAIL ACTION PLAN AND MEDICATION RECONCILIATION TRASNSPORTATION FAMILY EDUCATED ABOUT THE IMPORTANCE OF HAVING A HEALTH CARE PROXY
[2020-08-05 16:00] VITALS: BP 128/65; PULSE 80; RESP 22; TEMP 36.9; O2SAT 94
--- NOTE | 2020-08-05 18:53 | PC.NURSE ---
patient refused AM dose of Furosemide. Educated on need for medication. Patient continued to refuse. Dr. Berry made aware and okayed. Patient has no complaints at this time.
[2020-08-05 19:45] VITALS: BP 130/79; PULSE 74; RESP 14; TEMP 37.3; O2SAT 96
[2020-08-06] VITALS: BP 159/82; PULSE 65; RESP 16; TEMP 36; O2SAT 100
--- NOTE | 2020-08-06 02:51 | PC.NURSE ---
telepack being monitored by [facility] RN
[2020-08-06] MEDS: Heparin Sodium,Porcine 5,000 UNIT/ML VIAL 5000 UNIT SUBCUT ×2 (03:49→12:44)
[2020-08-06 03:55] VITALS: BP 125/60; PULSE 71; RESP 18; TEMP 36.1; O2SAT 98
[2020-08-06] MEDS: Albuterol/Iprat 2.5/0.5MG 3 ML AMPUL.NEB INHALE ×2 (04:58→21:32)
[2020-08-06] MEDS: Omeprazole 20 MG CAPSULE.DR PO (06:52)
[2020-08-06 07:53] VITALS: BP 129/62; PULSE 71; RESP 22; TEMP 36.2; O2SAT 98
[2020-08-06] MEDS: Cholecalciferol (Vitamin D3) 25 MCG TABLET PO (08:16)
[2020-08-06] MEDS: Metoprolol Succinate ER 50 MG TAB.ER.24H PO (08:17)
[2020-08-06] MEDS: DULoxetine HCl 30 MG CAPSULE.DR PO (08:17)
[2020-08-06] MEDS: predniSONE 10 MG TABLET PO (08:17)
[2020-08-06] MEDS: clonazePAM 1 MG TABLET PO ×2 (08:17→20:41)
[2020-08-06] MEDS: Calcium Carbonate 750 MG TAB.CHEW PO (08:17)
[2020-08-06] MEDS: 0.9 % Sodium Chloride Flush 3 ML SYRINGE IVFLUSH ×2 (08:18→17:35)
--- NOTE | 2020-08-06 08:31 | P.PNIM_ITS ---
Subjective Subjective Date of Service: 08/06/20 Interval History: no overnight events ongoing pain, no fever, chills breathing at baseline Review of Systems Review of Systems: Yes all other systems are reviewed and are negative Constitutional Constitutional: Denies chills and Denies fever(s) Cardiovascular Cardiovascular: Denies chest pain Respiratory Respiratory: Denies cough Gastrointestinal Gastrointestinal: Denies abdominal pain Physical Exam Vital Signs: Vital Signs: Last Vital Signs Temp 97.1 F 08/06/20 07:53 Pulse 71 08/06/20 07:53 Resp 22 H 08/06/20 07:53 BP 129/62 08/06/20 07:53 Pulse Ox 98 08/06/20 07:53 Body Mass Index 28.5 Const: General: alert and awake Orientation/consciousness: patient oriented x3 HENMT: Head: Yes normocephalic and Yes atraumatic Eyes: Sclerae: sclerae normal Chest: Chest palpation & inspection: normal inspection of the chest Cardio: Rate: regular rate Rhythm: regular rhythm GI: Palpation (GI): Soft to palpation and nontender Skin: Other: zoster skin lesions drying out. no significant surrounding er ythema Neuro: General: patient oriented x3 Cranial nerves: Yes CN's II-XII intact bilaterally and Yes Bilaterally intact EOM present Extrem: General: Yes normal to inspection Objective Data Current Medications Generic Name Dose Route Start Last Admin Trade Name Freq PRN Reason Stop Dose Admin Acetaminophen 650 mg 08/04/20 13:08 Acetaminophen 325 Mg Tablet PO Q6H PRN Pain, Mild (Pain Scale 1-3) Albuterol Sulfate 2 puff 08/04/20 13:08 Albuterol Sulfate 90 Mcg 8 Gm Inhaler INHALE Q4H PRN Shortness Of Breath Or Wheezing Albuterol/Ipratropium 3 ml 08/04/20 13:08 08/06/20 04:58 Albuterol/Iprat 2.5/0.5mg 3 Ml Ampul.Neb INHALE 3 ml Q4H PRN Administration Shortness Of Breath Or Wheezing Calcium Carbonate 750 mg 08/05/20 09:00 08/06/20 08:17 Calcium Carbonate 750 Mg Tab.Chew PO 750 mg DAILY [facility] Administration Clonazepam 1 mg 08/04/20 21:00 08/06/20 08:17 Clonazepam 1 Mg Tablet PO 1 mg BID [facility] Administration Docusate Sodium 100 mg 08/04/20 13:08 Docusate Sodium 100 Mg Capsule PO DAILY PRN Constipation Duloxetine HCl 30 mg 08/05/20 09:00 08/06/20 08:17 Duloxetine Hcl 30 Mg Capsule. PO 30 mg DAILY [facility] Administration Furosemide 40 mg 08/05/20 09:00 08/05/20 09:28 Furosemide 40 Mg Tablet PO Not Given Q48H [facility] Protocol Heparin Sodium (Porcine) 5,000 unit 08/04/20 14:00 08/06/20 03:49 Heparin Sodium,Porcine 5,000 Unit/Ml Vial SUBCUT 5,000 unit Q12H [facility] Administration Cefazolin Sodium 1 gm/ Sodium 50 mls @ 100 mls/hr 08/04/20 16:00 08/06/20 08:16 Chloride IV 100 mls/hr Q8H [facility] Administration Metoprolol Succinate 50 mg 08/05/20 09:00 08/06/20 08:17 Metoprolol Succinate Er 50 Mg Tab.Er.24h PO 50 mg DAILY [facility] Administration Protocol Multivitamins 1 tab 08/05/20 09:00 08/06/20 08:17 B-Complex With Vitamin C Tablet PO 1 tab DAILY [facility] Administration Omeprazole 20 mg 08/05/20 06:30 08/06/20 06:52 Omeprazole 20 Mg Capsule. PO 20 mg DAILY@0630 [facility] Administration Ondansetron HCl 4 mg 08/04/20 13:08 Ondansetron Hcl 4 Mg/2 Ml Vial IVPUSH Q8H PRN Nausea and Vomiting Oxycodone HCl 5 mg 08/05/20 16:52 08/05/20 21:17 Oxycodone Hcl Immed Release 5 Mg Tablet PO 5 mg Q3H PRN Administration Pain, Moderate (Pain Scale 4-6 Pharmacy Consult 1 each 08/04/20 07:05 Consult Rx Perform Med Rec MISCELLANE ONCE PRN Consult order Prednisone 10 mg 08/05/20 09:00 08/06/20 08:17 Prednisone 10 Mg Tablet PO 10 mg DAILY [facility] Administration Sodium Chloride 3 ml 08/04/20 16:00 08/06/20 08:18 0.9 % Sodium Chloride Flush 3 Ml Syringe IVFLUSH 3 ml QSHIFT [facility] Administration Valacyclovir HCl 1,000 mg 08/04/20 15:00 08/06/20 08:16 Valacycyclovir Hcl 1,000 Mg Tablet PO 1,000 mg TID [facility] Administration Vitamin D 25 mcg 08/05/20 09:00 08/06/20 08:16 Cholecalciferol (Vitamin D3) 25 Mcg Tablet PO 25 mcg DAILY [facility] Administration Labs CBC & Chem 7: 08/05/20 06:21 08/05/20 06:21 Microbiology Microbiology Results: Microbiology 08/04/20 08:14 Blood - Venous Blood Culture - Preliminary No growth after 24 hours. 08/04/20 08:04 Blood - Venous Blood Culture - Preliminary No growth after 24 hours. Assessment and Plan (1) Elevated troponin: Status: Acute (2) Herpes zoster: Status: Acute Assessment and Plan: This is an 80-year-old female with a history of oxygen and steroid dependent COPD recently diagnosed with herpes zoster who presents to the emergency department with shortness of breath and pain of the zoster site Herpes zoster with superimposed bacterial infection no sepsis Difficult to control pain, will add gabapentin, IV pain medication -kefzol -pain management -continue valacyclovir Shortness of breath At baseline continue home supplemental o2, prn breathing treatments, home inhalers Elevated troponin Cardiac enzymes have remained flat, no chest pain Left upper lobe lesion New when compared to previous chest x-ray. Given significant smoking history concerning for malignancy Discussed with patient, she is not interested in pursuing any further workup or treatment COPD Continue supplemental oxygen, uses 2-2.5L at home continue home inhalers, prednisone DVT prophylaxis-heparin Code status-DNR/DNI This case was discussed with Dr. Berry
[2020-08-06] MEDS: oxyCODONE HCl Immed Release 5 MG TABLET PO ×2 (12:43→17:27)
--- NOTE | 2020-08-06 12:57 | MHC.CM.PN ---
PER CONVERSATION WITH HOSPITALIST, PATIENT TO REMAIN FOR PAIN MANAGEMENT NEEDS. IF PATIENT IS HERE SATURDAY, CM WILL ATTEMPT TO ASSIST WITH SECOND COVID VACCINE, WHICH IS DONE AT [facility] FORMER EMERGENCY DEPT. SCHEDULED TIME IS 10:00.
[2020-08-06 16:00] VITALS: BP 117/64; PULSE 71; RESP 14; TEMP 36.4; O2SAT 97
[2020-08-06 19:38] VITALS: BP 121/62; PULSE 66; RESP 17; TEMP 36.1; O2SAT 98
[2020-08-06] MEDS: Gabapentin 100 MG CAPSULE PO (20:41)
[2020-08-06 21:33] VITALS: PULSE 68; O2SAT 96
[2020-08-07] VITALS (9 sets, daily range): BP systolic 114–156; BP diastolic 61–82; PULSE 67–78; RESP 17–20; TEMP 36.2–37; O2SAT 85–98
[2020-08-07] MEDS: 0.9 % Sodium Chloride Flush 3 ML SYRINGE IVFLUSH ×4 (00:44→23:42)
[2020-08-07] MEDS: Heparin Sodium,Porcine 5,000 UNIT/ML VIAL 5000 UNIT SUBCUT ×2 (01:20→14:36)
[2020-08-07] MEDS: oxyCODONE HCl Immed Release 5 MG TABLET PO ×5 (04:08→23:48)
[2020-08-07] MEDS: Albuterol/Iprat 2.5/0.5MG 3 ML AMPUL.NEB INHALE ×2 (04:15→23:17)
[2020-08-07] MEDS: Omeprazole 20 MG CAPSULE.DR PO (06:34)
[2020-08-07] MEDS: clonazePAM 1 MG TABLET PO ×2 (08:05→21:05)
[2020-08-07] MEDS: DULoxetine HCl 30 MG CAPSULE.DR PO (08:05)
[2020-08-07] MEDS: predniSONE 10 MG TABLET PO (08:05)
[2020-08-07] MEDS: Metoprolol Succinate ER 50 MG TAB.ER.24H PO (08:05)
[2020-08-07] MEDS: Gabapentin 100 MG CAPSULE PO ×2 (08:05→21:05)
[2020-08-07] MEDS: Calcium Carbonate 750 MG TAB.CHEW PO (08:08)
[2020-08-07] MEDS: Cholecalciferol (Vitamin D3) 25 MCG TABLET PO (08:08)
--- NOTE | 2020-08-07 09:18 | P.PNIM_ITS ---
Subjective Subjective Date of Service: 08/07/20 <DIONI Bhat - Last Filed: 08/07/20 10:58> 08/07/20 <Triston Berry MD - Last Filed: 08/07/20 13:53> Interval History: f/u for pain control and superimposed bacterial infection of herpes zoster No overnight events. Mild improvement in pain. <DIONI Bhat - Last Filed: 08/07/20 10:58> Review of Systems Review of Systems: Yes all other systems are reviewed and are negative <DIONI Bhat - Last Filed: 08/07/20 10:58> Constitutional Constitutional: Denies chills and Denies fever(s) <DIONI Bhat - Last Filed: 08/07/20 10:58> Cardiovascular Cardiovascular: Denies chest pain <DIONI Bhat - Last Filed: 08/07/20 10:58> Respiratory Respiratory: Denies cough <DIONI Bhat - Last Filed: 08/07/20 10:58> Gastrointestinal Gastrointestinal: Denies abdominal pain <DIONI Bhat - Last Filed: 08/07/20 10:58> Physical Exam Vital Signs: Vital Signs: Last Vital Signs Temp 97.5 F 08/07/20 08:00 Pulse 75 08/07/20 08:00 Resp 20 08/07/20 08:00 BP 138/82 08/07/20 08:00 Pulse Ox 93 08/07/20 08:00 Body Mass Index 28.5 <DIONI Bhat - Last Filed: 08/07/20 10:58> Const: Nutritional Appearance: well nourished <DIONI Bhat - Last Filed: 08/07/20 10:58> Orientation/consciousness: patient oriented x3 <DIONI Bhat - Last Filed: 08/07/20 10:58> HENMT: Head: Yes normocephalic and Yes atraumatic <DIONI Bhat - Last Filed: 08/07/20 10:58> Eyes: Sclerae: sclerae normal <DIONI Bhat - Last Filed: 08/07/20 10:58> Chest: Chest palpation & inspection: normal inspection of the chest <DIONI Bhat - Last Filed: 08/07/20 10:58> Resp: Effort & Inspection: no respiratory distress <DIONI Bhat - Last Filed: 08/07/20 10:58> Auscultation: diminished lung sounds <DIONI Bhat - Last Filed: 08/07/20 10:58> Cardio: Rate: regular rate <DIONI Bhat - Last Filed: 08/07/20 10:58> Rhythm: regular rhythm <DIONI Bhat - Last Filed: 08/07/20 10:58> GI: Palpation (GI): Soft to palpation and nontender <DIONI Bhat - Last Filed: 08/07/20 10:58> Skin: Other: zoster lesions drying up, minimal erythema, no wheeping <DIONI Bhat - Last Filed: 08/07/20 10:58> Neuro: General: patient oriented x3 <DIONI Bhat - Last Filed: 08/07/20 10:58> Cranial nerves: Yes CN's II-XII intact bilaterally and Yes Bilaterally intact EOM present <DIONI Bhat - Last Filed: 08/07/20 10:58> Extrem: General: Yes normal to inspection <DIONI Bhat Last Filed: 08/07/20 10:58> Objective Data Current Medications Generic Name Dose Route Start Last Admin Trade Name Jackq PRN Reason Stop Dose Admin Acetaminophen 650 mg 08/04/20 13:08 Acetaminophen 325 Mg Tablet PO Q6H PRN Pain, Mild (Pain Scale 1-3) Albuterol Sulfate 2 puff 08/04/20 13:08 Albuterol Sulfate 90 Mcg 8 Gm Inhaler INHALE Q4H PRN Shortness Of Breath Or Wheezing Albuterol/Ipratropium 3 ml 08/04/20 13:08 08/07/20 04:15 Albuterol/Iprat 2.5/0.5mg 3 Ml Ampul.Neb INHALE 3 ml Q4H PRN Administration Shortness Of Breath Or Wheezing Calcium Carbonate 750 mg 08/05/20 09:00 08/07/20 08:08 Calcium Carbonate 750 Mg Tab.Chew PO 750 mg DAILY LUCY Administration Clonazepam 1 mg 08/04/20 21:00 08/07/20 08:05 Clonazepam 1 Mg Tablet PO 1 mg BID LUCY Administration Docusate Sodium 100 mg 08/04/20 13:08 Docusate Sodium 100 Mg Capsule PO DAILY PRN Constipation Duloxetine HCl 30 mg 08/05/20 09:00 08/07/20 08:05 Duloxetine Hcl 30 Mg Capsule. PO 30 mg DAILY LUCY Administration Furosemide 40 mg 08/05/20 09:00 08/07/20 08:06 Furosemide 40 Mg Tablet PO Not Given Q48H LUCY Protocol Gabapentin 100 mg 08/06/20 21:00 08/07/20 08:05 Gabapentin 100 Mg Capsule PO 100 mg BID LUCY Administration Heparin Sodium (Porcine) 5,000 unit 08/04/20 14:00 08/07/20 01:20 Heparin Sodium,Porcine 5,000 Unit/Ml Vial SUBCUT 5,000 unit Q12H LUCY Administration Cefazolin Sodium 1 gm/ Sodium 50 mls @ 100 mls/hr 08/04/20 16:00 08/07/20 08:46 Chloride IV Infused Q8H LUCY Infusion Metoprolol Succinate 50 mg 08/05/20 09:00 08/07/20 08:05 Metoprolol Succinate Er 50 Mg Tab.Er.24h PO 50 mg DAILY LUCY Administration Protocol Multivitamins 1 tab 08/05/20 09:00 08/07/20 08:04 B-Complex With Vitamin C Tablet PO 1 tab DAILY LUCY Administration Omeprazole 20 mg 08/05/20 06:30 08/07/20 06:34 Omeprazole 20 Mg Capsule. PO 20 mg DAILY@0630 LUCY Administration Ondansetron HCl 4 mg 08/04/20 13:08 Ondansetron Hcl 4 Mg/2 Ml Vial IVPUSH Q8H PRN Nausea and Vomiting Oxycodone HCl 5 mg 08/05/20 16:52 08/07/20 08:05 Oxycodone Hcl Immed Release 5 Mg Tablet PO 5 mg Q3H PRN Administration Pain, Moderate (Pain Scale 4-6 Pharmacy Consult 1 each 08/04/20 07:05 Consult Rx Perform Med Rec MISCELLANE ONCE PRN Consult order Prednisone 10 mg 08/05/20 09:00 08/07/20 08:05 Prednisone 10 Mg Tablet PO 10 mg DAILY LUCY Administration Sodium Chloride 3 ml 08/04/20 16:00 08/07/20 08:06 0.9 % Sodium Chloride Flush 3 Ml Syringe IVFLUSH 3 ml QSHIFT LUCY Administration Valacyclovir HCl 1,000 mg 08/04/20 15:00 08/07/20 08:05 Valacycyclovir Hcl 1,000 Mg Tablet PO 1,000 mg TID LUCY Administration Vitamin D 25 mcg 08/05/20 09:00 08/07/20 08:08 Cholecalciferol (Vitamin D3) 25 Mcg Tablet PO 25 mcg DAILY LUCY Administration <DIONI Bhat - Last Filed: 08/07/20 10:58> Labs CBC & Chem 7: : 08/05/20 06:21 08/05/20 06:21 <DIONI Bhat - Last Filed: 08/07/20 10:58> Microbiology Microbiology Results: Microbiology 08/04/20 08:14 Blood - Venous Blood Culture - Preliminary No growth after 48 hours. 08/04/20 08:04 Blood - Venous Blood Culture - Preliminary No growth after 48 hours. <DIONI Bhat - Last Filed: 08/07/20 10:58> Assessment and Plan (1) Shingles: Status: Acute <DIONI Bhat - Last Filed: 08/07/20 10:58> (2) Cellulitis: Status: Acute <DIONI Bhat - Last Filed: 08/07/20 10:58> (3) Elevated troponin: Status: Acute <DIONI Bhat - Last Filed: 08/07/20 10:58> Assessment and Plan: This is an 80-year-old female with a history of oxygen and steroid dependent COPD recently diagnosed with herpes zoster who presents to the emergency department with shortness of breath and pain of the zoster site Herpes zoster with superimposed bacterial infection Difficult to control pain, improving slowly -Continue gabapentin, oxycodone -kefzol 4/5 -continue valacyclovir, transition to PO on discharge COPD/chronic respiratory failure Currently att baseline Continue supplemental oxygen, uses 2-2.5L at home continue home inhalers, prednisone Elevated troponin Cardiac enzymes have remained flat, no chest pain Left upper lobe lesion New when compared to previous chest x-ray. Given significant smoking history concerning for malignancy Discussed with patient, she is not interested in pursuing any further workup or treatment disposition: likely in am. patient has appointment at 10am at [facility] for second covid vaccine. DVT prophylaxis-heparin Code status-DNR/DNI This case was discussed with Dr. Berry <DIONI Bhat - Last Filed: 08/07/20 10:58>
[2020-08-08 03:51] VITALS: BP 146/60; PULSE 75; RESP 19; TEMP 36.6; O2SAT 94
[2020-08-08] MEDS: oxyCODONE HCl Immed Release 5 MG TABLET PO (05:55)
[2020-08-08] MEDS: Omeprazole 20 MG CAPSULE.DR PO (05:55)
[2020-08-08] MEDS: Albuterol/Iprat 2.5/0.5MG 3 ML AMPUL.NEB INHALE (06:10)
[2020-08-08 06:13] VITALS: PULSE 76; O2SAT 93
[2020-08-08 06:22] LABS: MANUAL DIFF FLAG NO
[2020-08-08 06:41] LABS: Basophils Percent Auto 0.3 % (0-2); Eosinophils Absolute Auto 0.2 X10*3/uL (0.0-0.4); Eosinophils Percent Auto 1.4 % (0-4); Hematocrit 37.3 % (37-47); Hemoglobin 11.1 g/dl (12.0-16.0); Imm Gran Abs Auto 0.08 X10*3/uL (0.00-0.03); Imm Gran Pct Auto 0.8 % (0.0-0.4); Lymphocytes Absolute Auto 1.8 X10*3/uL (1.2-4.9); Lymphocytes Percent Auto 17.4 % (20-40); Mean Corpuscular HGB Conc 29.8 g/dl (31.0-35.0); Mean Corpuscular Hemoglobin 28.9 pg (27.0-33.0); Mean Corpuscular Volume 97.1 fL (80-98); Mean Platelet Volume 9.8 fL (9.4-12.3); Monocytes Absolute Auto 1.1 X10*3/uL (0.1-1.2); Monocytes Percent Auto 10.8 % (2-11); Neutrophils Absolute Auto 7.2 X10*3/uL (2.0-8.3); Neutrophils Percent Auto 69.3 % (45-73); Platelet Count 262 X10*3/uL (160-400); Red Blood Count 3.84 X10*6/uL (4.20-5.50); Red Cell Distribution Width 13.2 % (11.0-16.0); White Blood Count 10.4 X10*3/uL (4.8-10.8)
[2020-08-08 07:37] VITALS: BP 147/70; PULSE 72; RESP 19; TEMP 36.1; O2SAT 94
[2020-08-08 07:40] LABS: Anion Gap 10 (12-20); Blood Urea Nitrogen 15 mg/dL (9-16); Calcium 9.5 mg/dL (8.4-10.2); Carbon Dioxide 46 mmol/L (22-29); Chloride 92 mmol/L (96-108); Creatinine Clr Calc Pharmacy 58.8; Estimated Glomerular Filt Rate > 60; Glucose Random 108 mg/dL (60-115); Sodium 144 mmol/L (135-145)
[2020-08-08] MEDS: Gabapentin 100 MG CAPSULE PO (07:53)
[2020-08-08] MEDS: Cholecalciferol (Vitamin D3) 25 MCG TABLET PO (07:53)
[2020-08-08] MEDS: predniSONE 10 MG TABLET PO (07:53)
[2020-08-08] MEDS: DULoxetine HCl 30 MG CAPSULE.DR PO (07:53)
[2020-08-08] MEDS: Calcium Carbonate 750 MG TAB.CHEW PO (07:54)
[2020-08-08] MEDS: Metoprolol Succinate ER 50 MG TAB.ER.24H PO (07:54)
[2020-08-08] MEDS: 0.9 % Sodium Chloride Flush 3 ML SYRINGE IVFLUSH (07:54)
[2020-08-08] MEDS: clonazePAM 1 MG TABLET PO (07:54)
--- NOTE | 2020-08-08 08:47 | P.DS_ITS ---
DS: Providers Provider Date of Service: 08/08/20 Date of admission: 08/04/20 12:29 Primary care physician: Rolo Ford MD DS: Diagnosis Discharge Diagnosis (1) Shingles: Status: Acute (2) Cellulitis: Status: Acute (3) Elevated troponin: Status: Acute (4) COPD (chronic obstructive pulmonary disease): Status: Acute (5) Chronic respiratory failure with hypoxia: Status: Acute (6) Lung mass: Status: Acute DS: Medications Discharge Medications Home Medications: Home Medications Medication Instructions Recorded Confirmed duloxetine 30 mg capsule,delayed 30 mg PO DAILY 03/07/20 08/04/20 release metoprolol succinate 50 mg 50 mg PO DAILY 03/07/20 08/04/20 tablet,extended release 24 hr calcium carbonate 600 mg calcium 600 mg PO DAILY 03/28/20 08/04/20 (1,500 mg) tablet furosemide 40 mg tablet 40 mg PO Q OTHER DAY 07/04/20 08/04/20 prednisone 10 mg tablet 10 mg PO DAILY 07/04/20 08/04/20 tramadol 50 mg tablet 50 mg PO DAILY PRN 08/02/20 08/04/20 albuterol sulfate 2 puff INHALATION Q4H PRN 08/04/20 08/04/20 cholecalciferol (vitamin D3) 25 mcg PO DAILY 08/04/20 08/04/20 ipratropium-albuterol 3 ml INHALATION Q4H PRN 08/04/20 08/04/20 prednisone 5 mg PO DAILY 08/04/20 08/04/20 vitamin B complex 1 cap PO DAILY 08/04/20 08/04/20 Previous Rx's Medication Instructions Recorded omeprazole 20 mg capsule,delayed 20 mg PO DAILY #90 cap 07/16/20 release valacyclovir 1,000 mg PO TID 10 Days #30 tab 07/28/20 clonazepam 1 mg tablet 1 mg PO BID #30 tab 08/02/20 albuterol sulfate 90 mcg/actuation 2 puff INHALATION Q4-6H PRN 30 08/04/20 aerosol inhaler Days #8.5 g oxycodone 5 mg PO Q3H PRN #15 tab 08/08/20 DS: Summary Hospital Course Hospital Course: patient was admitted for shortness of breath and painful shingles. Also noted to have superimposed bacterial cellulitis. Patient was given IV Ancef and valacyclovir. She was also noted to have a left upper lobe lesion on chest x- ray. Patient was informed of this but did not want any further workup. Erythema surrounding shingles lesions improved over hospitalization. Patient still has some pain that is managed with oxycodone. But she is feeling much better and ready to go home. She will continue her valacyclovir course. She completed 5 days of antibiotics for cellulitis. Time Spent with Patient Time attestation: Total time spent providing and/or coordinating discharge services: Discharge coordination time: Greater than 30 minutes Physical Exam Vital Signs: Vital Signs: Last Vital Signs Temp 97.0 F 08/08/20 07:37 Pulse 72 08/08/20 07:37 Resp 19 08/08/20 07:37 BP 147/70 H 08/08/20 07:37 Pulse Ox 94 08/08/20 07:37 Body Mass Index 28.5 General: AO X 3, no acute distress Resp: CTA bilateral CVS: S1,S2,RRR GI: soft, non tender, non distended Neuro: motor grossly intact Psych: appropriate affect skin: shingle lesions in verious stages over left chest and back DS: Data Data Completed and Pending Labs on day of discharge: Laboratory Results - last 24 hr 08/08/20 08/08/20 06:01 06:01 WBC 10.4 RBC 3.84 L Hgb 11.1 L Hct 37.3 MCV 97.1 MCH 28.9 MCHC 29.8 L RDW 13.2 Plt Count 262 MPV 9.8 Immature Gran % (Auto) 0.8 H Neut % (Auto) 69.3 Lymph % (Auto) 17.4 L [place] % (Auto) 10.8 Eos % (Auto) 1.4 Baso % (Auto) 0.3 Lymph # (Auto) 1.8 [place] # (Auto) 1.1 Eos # (Auto) 0.2 Baso # (Auto) 0.0 Abs Immat Gran (auto) 0.08 H Absolute Neuts (auto) 7.2 Absolute Nucleated RBC 0.000 Nucleated RBC % (auto) 0.0 Sodium 144 Potassium 4.0 Chloride 92 L Carbon Dioxide 46 H* Anion Gap 10 L BUN 15 Creatinine 0.62 Estim Creat Clear Calc 58.8 Estimated GFR > 60 Random Glucose 108 Calcium 9.5 Preliminary micro results at discharge 08/04/20 08:14 Blood Culture - Preliminary Blood - Venous No growth after 48 hours. 08/04/20 08:04 Blood Culture - Preliminary Blood - Venous No growth after 48 hours. Discharge Plan Discharge Patient Disposition: Home, Self-Care Referrals: Rolo Ford MD [Primary Care Provider] - Discharge Medications: New oxycodone 5 mg Tablet 5 mg PO Q3H PRN (Reason: Pain, Moderate (Pain Scale 4-6) Qty: 15 RF: 0 Continued omeprazole 20 mg capsule,delayed release(DR/EC) 20 mg PO DAILY Qty: 90 RF: 1 albuterol sulfate [Ventolin HFA] 90 mcg/actuation HFA aerosol inhaler 2 puff inhalation Q4-6H PRN (Reason: shortness of breath or wheezing) 30 Days Qty: 8.5 RF: 3 vitamin B complex Capsule 1 cap PO DAILY RF: 0 cholecalciferol (vitamin D3) 25 mcg (1,000 unit) Tablet 25 mcg PO DAILY RF: 0 ipratropium-albuterol 0.5 mg-3 mg(2.5 mg base)/3 mL solution for nebulization 3 ml inhalation Q4H PRN (Reason: Shortness Of Breath Or Wheezing) RF: 0 prednisone 5 mg tablet 5 mg PO DAILY RF: 0 albuterol sulfate 90 mcg/actuation HFA aerosol inhaler 2 puff inhalation Q4H PRN (Reason: Shortness Of Breath Or Wheezing) RF: 0 valacyclovir 1 gram tablet 1,000 mg PO TID 10 Days Qty: 30 RF: 0 tramadol 50 mg tablet 50 mg PO DAILY PRN (Reason: Pain) RF: 0 clonazepam 1 mg tablet 1 mg PO BID Qty: 30 RF: 0 prednisone 10 mg tablet 10 mg PO DAILY RF: 0 furosemide 40 mg tablet 40 mg PO Q OTHER DAY RF: 0 calcium carbonate [Calcium 600] 600 mg calcium (1,500 mg) tablet 600 mg PO DAILY RF: 0 duloxetine 30 mg capsule,delayed release(DR/EC) 30 mg PO DAILY RF: 0 metoprolol succinate 50 mg tablet extended release 24 hr 50 mg PO DAILY RF: 0 Discharge Orders: Discharge Order (Routine); Ordered 08/08/20 Ordered By: Troy Glasgow Activity on Discharge: As tolerated Stand Alone Forms: Patient Portal Discharge page Care Plan Goals: recovery Health Concerns: lung mass, shingles Plan of Treatment: pain control, finish valcyclovir, work up for lung mass if desired
== END 2020-08-08 10:18 | disposition home or self-care (01) | DRG 191 ==
LOC: HO.ED 09:37 → HO.EDOVER 12:59 → HO.S3 13:01
PROVIDERS: Physician Assistant Medical; Admitting Provider Family Medicine; Emergency Provider Emergency Medicine; PCP Internal Medicine; Visit Provider Internal Medicine
DX: J44.1 Chronic obstructive pulmonary disease with (acute) exacerbation (principal); B02.8 Zoster with other complications; L03.313 Cellulitis of chest wall; J96.11 Chronic respiratory failure with hypoxia; J98.4 Other disorders of lung; Z99.81 Dependence on supplemental oxygen; Z20.822 Contact with and (suspected) exposure to COVID-19; Z88.0 Allergy status to penicillin; Z79.52 Long term (current) use of systemic steroids; Z79.891 Long term (current) use of opiate analgesic; Z79.899 Other long term (current) drug therapy; Z66 Do not resuscitate
CPT/HCPCS: 36415; 71045; 80048; 80076; 82803; 83605; 83735; 83880; 84484; 85025; 85610; 85730; 87040; 87635; 93005; 94640; 96365; 96368; 96375; 99285; J0690; J0696; J2930

== ENCOUNTER → 2020-08-09 09:41 | Outpatient (BNVA) | payer MEDICARE, SELFPAY | PROVIDERS: PCP Internal Medicine; Visit Provider Internal Medicine | DX: Z13.89 Encounter for screening for other disorder (principal) | CPT/HCPCS: Q3014 ==

== ENCOUNTER 2020-08-22 13:12 | Outpatient (REF) | payer MEDICARE, SELFPAY ==
--- NOTE | ~2020-08-22 | CT_ITS ---
EXAMINATION: CT CHEST WITHOUT CONTRAST CLINICAL INFORMATION: Left upper lobe lung mass COMPARISON: Chest CTA July 2016 and previous chest x-ray most recent July 2020 TECHNIQUE: Multidetector volumetric CT imaging of the chest was done. Axial MIP volume rendering provided. Sagittal and coronal reformatted images were obtained. This CT examination was performed using dose optimization techniques as appropriate, variously including the following: *Automated exposure control *Adjustment of mA and/or kV according to patient size (this includes techniques or standardized protocols for targeted exams where dose is matched to indication/reason for exam; i.e. extremities or head) *Use of iterative reconstruction technique DLP: 141 mGy-cm FINDINGS: LUNGS: There is evidence of mild emphysema. There is a new 1.3 x 1.8 cm spiculated left upper lobe nodule in the apicoposterior segment adjacent to the left pleural fissure. There is a 3 mm right upper lobe nodule axial image 38 series 8 there is a 2 mm right upper lobe nodule axial image 43 series 8. There is a 2 mm left upper lobe nodule axial image 52 series 8. There is atelectasis/consolidation seen in the right middle lobe and right lower lobe. This is increased in the right middle lobe and not appreciably changed in the right lower lobe compared to July 2016. There is minimal subsegmental atelectasis seen in the inferior segment of the lingula that is unchanged. MEDIASTINUM: The heart does not appear enlarged. There is coronary artery calcification. There is no pericardial effusion. There is aortic valve calcification. The thoracic aorta is normal in caliber. The pulmonary arteries are prominent, main pulmonary artery measuring 3.5 cm questionable for pulmonary artery hypertension. There are no enlarged mediastinal lymph nodes. Evaluation for hilar adenopathy is limited without contrast. PLEURA: There is no pleural effusion. No pleural mass or thickening. AXILLA: No lymphadenopathy. UPPER ABDOMEN: Unremarkable. 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 There are bilateral periarticular fluid collections suggestive of joint effusions or periarticular synovial cysts/ganglions. There is increased thoracic kyphosis. There are multiple mid thoracic vertebral body compression fractures. These do not appear appreciably changed from 2017 exam. There are multiple bilateral rib fractures. CT/CT chest wo con IMPRESSION: New 1.3 x 1.8 cm spiculated left upper lobe nodule suspicious for malignancy. Mild emphysema. Coronary artery and aortic valve calcification. Enlarged pulmonary arteries questionable for pulmonary artery hypertension. 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 Increased thoracic kyphosis and multiple thoracic vertebral body compression fractures similar to previous exam. Findings will be communicated by the [facility] work flow acquisition marketing coordinator Stephanie Iverson.
== END 2020-08-22 13:13 | disposition home or self-care (01) ==
LOC: HO.CT 13:12
PROVIDERS: PCP Internal Medicine; Visit Provider Internal Medicine
DX: R91.8 Other nonspecific abnormal finding of lung field (principal); J44.1 Chronic obstructive pulmonary disease with (acute) exacerbation
CPT/HCPCS: 71250

== ENCOUNTER → 2020-09-20 11:10 | Outpatient (BNVA) | payer MEDICARE, SELFPAY | PROVIDERS: PCP Internal Medicine; Visit Provider Internal Medicine | DX: J44.1 Chronic obstructive pulmonary disease with (acute) exacerbation (principal); J96.91 Respiratory failure, unspecified with hypoxia; J96.92 Respiratory failure, unspecified with hypercapnia; R91.8 Other nonspecific abnormal finding of lung field; B02.29 Other postherpetic nervous system involvement; Z87.891 Personal history of nicotine dependence; Z79.899 Other long term (current) drug therapy | CPT/HCPCS: 99212 ==

== ENCOUNTER 2020-10-25 17:16 | Emergency (ER) | payer MEDICARE, SELFPAY ==
--- NOTE | ~2020-10-25 | XR_ITS ---
EXAMINATION: PORTABLE CHEST 1 VIEW CLINICAL INFORMATION: sob . COMPARISON: 08/04/2020. TECHNIQUE: Portable frontal view of the chest was obtained. FINDINGS: Lungs well-expanded. Chronic appearing coarsened reticular markings are seen bilaterally. The left upper lobe nodular opacity is less apparent on the current chest x-ray and was better seen on the 08/22/2020 CT scan of the chest. No significant effusion, edema, or pneumothorax. Cardiac and mediastinal silhouettes within normal limits for size with mild tortuosity to the aorta. Degenerative changes in the spine and shoulders with bilateral healed rib fractures XR/XR chest 1V IMPRESSION: Coarsened chronic reticular markings bilaterally. The previously noted nodular opacity in the left upper lobe was better appreciated on the 08/22/2020 CT scan. No acute process otherwise.
[2020-10-25 17:24] VITALS: BP 166/89; PULSE 72; O2SAT 98
[2020-10-25 17:29] VITALS: BP 150/81; PULSE 80; RESP 17; TEMP 37.2; O2SAT 99; BMI 31.6
--- NOTE | 2020-10-25 17:36 | ECG_ITS ---
Test Reason : MEDICAL Blood Pressure : / mmHG Vent. Rate : 079 BPM Atrial Rate : 079 BPM P-R Int : 122 ms QRS Dur : 068 ms QT Int : 372 ms P-R-T Axes : 050 017 058 degrees QTc Int : 426 ms Normal sinus rhythm Low voltage QRS Borderline ECG When compared with ECG of 04-AUG-2020 07:43, Minimal criteria for Anteroseptal infarct are no longer Present Referred By: Lamar Dominique Electronically Signed By:NICOLE MCALLISTER MD
[2020-10-25 18:13] VITALS: BP 148/73; PULSE 78; RESP 16; TEMP 36.8; O2SAT 3
[2020-10-25] MEDS: Gabapentin 300 MG CAPSULE PO (18:29)
[2020-10-25] MEDS: Albuterol Sulfate 90 MCG 8 GM INHALER 2 PUFF INHALE (18:30)
[2020-10-25 18:37] LABS: Basophils Percent Auto 0.1 % (0-2); Hematocrit 34.6 % (37-47); Hemoglobin 10.4 g/dl (12.0-16.0); Imm Gran Abs Auto 0.05 X10*3/uL (0.00-0.03); Imm Gran Pct Auto 0.5 % (0.0-0.4); Lymphocytes Absolute Auto 0.5 X10*3/uL (1.2-4.9); MANUAL DIFF FLAG SCAN; Mean Corpuscular HGB Conc 30.1 g/dl (31.0-35.0); Mean Corpuscular Hemoglobin 30.1 pg (27.0-33.0); Mean Platelet Volume 9.5 fL (9.4-12.3); Monocytes Absolute Auto 0.4 X10*3/uL (0.1-1.2); Monocytes Percent Auto 3.5 % (2-11); Neutrophils Absolute Auto 9.8 X10*3/uL (2.0-8.3); Neutrophils Percent Auto 90.9 % (45-73); Platelet Count 205 X10*3/uL (160-400); Red Blood Count 3.46 X10*6/uL (4.20-5.50); Red Cell Distribution Width 13.6 % (11.0-16.0); SCAN SMEAR FLAG 1; White Blood Count 10.8 X10*3/uL (4.8-10.8)
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
[2020-10-25 19:00] LABS: Anion Gap 13 (12-20); Blood Urea Nitrogen 14 mg/dL (9-16); Calcium 9.6 mg/dL (8.4-10.2); Carbon Dioxide 44 mmol/L (22-29); Chloride 86 mmol/L (96-108); Creatinine Clr Calc Pharmacy 57.8; Estimated Glomerular Filt Rate > 60; Glucose Random 122 mg/dL (60-115); Potassium 4.7 mmol/L (3.3-5.1); Sodium 138 mmol/L (135-145)
[2020-10-25 19:03] LABS: B Type Natriuretic Peptide 162 pg/mL (<100); Troponin-I High Sensitivity 5.4 ng/L (<3.5-17.0)
[2020-10-25 19:37] LABS: Folate > 20.0 ng/mL (> or = 4.0); Vitamin B12 776 pg/mL (200-900)
[2020-10-25 19:55] LABS: SLIDE REVIEW VERIFIED
[2020-10-25 20:00] VITALS: BP 138/68; PULSE 85; RESP 16; TEMP 37.1; O2SAT 96
[2020-10-25 20:22] LABS: Glucose Urine UA NEG (NEG); Leukocyte Esterase Urine NEG (NEG); Nitrite Urine NEG (NEG); Specific Gravity - Urine 1.015 (1.005-1.025); Urine Blood TRACE (NEG); Urine Ketones NEG (NEG); Urine Protein NEG (NEG-TRACE)
[2020-10-25 20:32] LABS: Appearance Urine CLEAR; Color Urine YELLOW
[2020-10-25 20:33] LABS: WBC Urine 0-2 /HPF (0-4)
--- NOTE | 2020-10-25 20:34 | PC.NURSE ---
Pt aaox4, resting on stretcher in NAD, breathing with ease on baseline O2 via NC. pt endorses tolerable discomfort r/t nerve pain from Shingles. Pt otherwise makes no complaints of discomfort/pain. Pt awaiting dispo. Stretcher in lowest locked position, rails raised, call philippe within reach.
--- NOTE | 2020-10-25 21:42 | PC.NURSE ---
Per RT, pt refusing ABG.
--- NOTE | 2020-10-25 21:44 | PC.NURSE ---
SORAIDA Newton aware of pts refusal of ABG. States thats ok
[2020-10-25 22:00] VITALS: BP 155/62; PULSE 81; RESP 16; TEMP 36.6; O2SAT 100
[2020-10-25] MEDS: Nystatin Oral Susp 500,000 UNIT/5 ML ORAL.SUSP 500000 UNIT PO (22:13)
== END 2020-10-25 22:24 | disposition home or self-care (01) ==
PROVIDERS: Nurse Practitioner Family; Emergency Provider Emergency Medicine; PCP Internal Medicine
DX: B37.0 Candidal stomatitis (principal); J43.9 Emphysema, unspecified; C34.12 Malignant neoplasm of upper lobe, left bronchus or lung; M79.672 Pain in left foot; M79.671 Pain in right foot; Z91.81 History of falling; Z79.899 Other long term (current) drug therapy
CPT/HCPCS: 36415; 71045; 80048; 81001; 82607; 82746; 83880; 84484; 85025; 93005; 99284

== ENCOUNTER 2020-11-11 05:39 | Emergency (ER) | payer MEDICARE, SELFPAY ==
--- NOTE | ~2020-11-11 | XR_ITS ---
EXAMINATION: XR CHEST CLINICAL INFORMATION: Shortness of breath COMPARISON: 10/25/2020 TECHNIQUE: Frontal view of the chest was obtained. FINDINGS: Lung volumes are symmetric. No focal consolidation is seen. Redemonstrated left upper lobe nodule better delineated on CT 08/22/2020. No evidence of pneumothorax, pleural effusion, or pulmonary edema. The cardiomediastinal contour is unremarkable. No acute osseous findings are seen. Marked degenerative changes noted in the glenohumeral joints. XR/XR chest 1V IMPRESSION: No new acute findings. Redemonstrated left upper lobe nodule better seen on CT 08/22/2020.
[2020-11-11 05:49] VITALS: BP 139/79; PULSE 89; RESP 30; O2SAT 90; O2SAT 98; BMI 28.5
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
--- NOTE | 2020-11-11 06:06 | ECG_ITS ---
Test Reason : SOB Blood Pressure : / mmHG Vent. Rate : 080 BPM Atrial Rate : 080 BPM P-R Int : 122 ms QRS Dur : 074 ms QT Int : 376 ms P-R-T Axes : 047 -04 081 degrees QTc Int : 433 ms Normal sinus rhythm Low voltage QRS Borderline ECG When compared to the previous EKG of No significant changes seen Referred By: Alicia Davis Electronically Signed By:Nico Ball
[2020-11-11 06:52] LABS: MANUAL DIFF FLAG NO
[2020-11-11 06:56] LABS: VBG Base Excess 23.9 mmol/L; VBG HCO3 52 mmol/L (22-26); VBG pCO2 76 mmHg; VBG pH 7.44 (7.32-7.43); VBG pO2 62 mmHg
[2020-11-11 06:59] LABS: Venous Blood Gas Refer to POC result
[2020-11-11 07:00] VITALS: PULSE 84; RESP 20; O2SAT 98
[2020-11-11 07:02] LABS: Basophils Percent Auto 0.1 % (0-2); Eosinophils Percent Auto 0.1 % (0-4); Hematocrit 33.7 % (37-47); Hemoglobin 10.7 g/dl (12.0-16.0); Imm Gran Abs Auto 0.07 X10*3/uL (0.00-0.03); Imm Gran Pct Auto 0.5 % (0.0-0.4); Lymphocytes Absolute Auto 1.1 X10*3/uL (1.2-4.9); Lymphocytes Percent Auto 7.7 % (20-40); Mean Corpuscular HGB Conc 31.8 g/dl (31.0-35.0); Mean Corpuscular Hemoglobin 30.6 pg (27.0-33.0); Mean Corpuscular Volume 96.3 fL (80-98); Mean Platelet Volume 9.9 fL (9.4-12.3); Monocytes Absolute Auto 1.3 X10*3/uL (0.1-1.2); Monocytes Percent Auto 8.6 % (2-11); Neutrophils Absolute Auto 12.2 X10*3/uL (2.0-8.3); Platelet Count 239 X10*3/uL (160-400); Red Cell Distribution Width 13.5 % (11.0-16.0); White Blood Count 14.7 X10*3/uL (4.8-10.8)
[2020-11-11 07:10] LABS: COVID-19 Test Negative (Negative); IDNOW Serial# 9DD0AD1C
[2020-11-11 07:43] LABS: Alanine Aminotransferase 18 U/L (0-31); Alkaline Phosphatase 58 U/L (39-117); Anion Gap 16 (12-20); Aspartate Amino Transferase 35 U/L (5-31); Bilirubin Total 1.1 mg/dL (0.0-1.0); Blood Urea Nitrogen 26 mg/dL (9-16); Calcium 9.7 mg/dL (8.4-10.2); Carbon Dioxide 31 mmol/L (22-29); Chloride 87 mmol/L (96-108); Creatinine Clr Calc Pharmacy 52.9; Estimated Glomerular Filt Rate > 60; Glucose Random 122 mg/dL (60-115); Potassium 4.4 mmol/L (3.3-5.1); Sodium 130 mmol/L (135-145); Total Protein 6.5 g/dL (6.5-8.0)
== END 2020-11-11 09:32 | disposition home or self-care (01) ==
PROVIDERS: Student in an Organized Health Care Education/Training Program; Emergency Provider Emergency Medicine Emergency Medical Services
DX: J44.9 Chronic obstructive pulmonary disease, unspecified (principal); J96.11 Chronic respiratory failure with hypoxia; R22.43 Localized swelling, mass and lump, lower limb, bilateral; Z20.822 Contact with and (suspected) exposure to COVID-19; I48.0 Paroxysmal atrial fibrillation; I50.9 Heart failure, unspecified; Z99.81 Dependence on supplemental oxygen
CPT/HCPCS: 36415; 71045; 80053; 85025; 87635; 93005; 99283; 99285

== ENCOUNTER 2020-11-19 10:41 | Inpatient (IN) | payer MEDICARE, SELFPAY ==
[2020-11-19] VITALS (7 sets, daily range): BP systolic 115–144; BP diastolic 59–79; PULSE 75–93; RESP 16–23; TEMP 36.6–36.7; O2SAT 95–100; BMI 28.3
--- NOTE | ~2020-11-19 | CT_ITS ---
EXAMINATION: CT CHEST WITHOUT CONTRAST CLINICAL INFORMATION: History of left upper lobar lung nodule. COMPARISON: CT of the chest done on 08/22/2020. TECHNIQUE: Multidetector volumetric CT imaging of the chest was done. Axial MIP volume rendering provided. Sagittal and coronal reformatted images were obtained. This CT examination was performed using dose optimization techniques as appropriate, variously including the following: *Automated exposure control *Adjustment of mA and/or kV according to patient size (this includes techniques or standardized protocols for targeted exams where dose is matched to indication/reason for exam; i.e. 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 Healing rib fractures are noted within the right hemithorax. LUNGS: The index spiculated mass at left upper lobe of the lung involving the posterior segment, abutting the superior part of the left major fissure is reidentified, currently measures 2.5 x 1.4 cm, (image #118 series 6), previously measured 1.8 x 1.3 cm, shows interval increase, highly suspicious for malignancy. Interval development of a thin walled cavitary lesion identified within the left lung apex posterolaterally superiorly, measures 1.8 cm at its maximum dimension (image #54 series 6). Underlying emphysematous disease and bronchiectatic changes associated with peribronchial thickening and partial loss of volume involving the right middle, right lower, and the lingular segment of the left upper lobe appear unchanged. The tracheobronchial tree is patent. MEDIASTINUM: No pathologically enlarged mediastinal or hilar lymphadenopathy. The pulmonary arteries remain enlarged likely represent underlying pulmonary arterial hypertension related to emphysematous disease. Atherosclerotic disease of the aorta including significant coronary artery calcifications are present. Mitral valve annular calcification is seen. Overall no significant change since 08/22/2020. PLEURA: There is no pleural effusion. No pleural mass or thickening. AXILLA: No lymphadenopathy. UPPER ABDOMEN: No evidence of any adrenal mass. OSSEOUS STRUCTURES: Bilateral large shoulder joint effusion, appears similar to prior study. Marked diffuse osteopenia and marked platyspondylia of mid thoracic vertebrae, appears similar. CT/CT chest wo con IMPRESSION: 1. The index spiculated mass involving the posterior segment of the left upper lobe of the lung abutting the left major fissure is reidentified, currently measures 2.5 cm at its maximum dimension, shows interval increase from prior measurement of 1.8 cm at its maximum dimension since the prior study dated 08/22/2020, highly suspicious for malignancy. Note is also made of interval development of a thin walled cavitary lesion at left lung apex measuring 1.8 cm, new since prior study. 2. No other significant interval change.
--- NOTE | 2020-11-19 11:04 | ECG_ITS ---
Test Reason : DYSPNEA Blood Pressure : / mmHG Vent. Rate : 076 BPM Atrial Rate : 076 BPM P-R Int : 124 ms QRS Dur : 076 ms QT Int : 364 ms P-R-T Axes : 073 015 072 degrees QTc Int : 409 ms Normal sinus rhythm Low voltage QRS Borderline ECG When compared with ECG of 11-NOV-2020 08:11, No significant change was found Referred By: Chiquis Bain Electronically Signed By:NICOLE MCALLISTER MD
[2020-11-19 11:53] LABS: MANUAL DIFF FLAG NO
[2020-11-19 12:01] LABS: Basophils Percent Auto 0.3 % (0-2); Eosinophils Absolute Auto 0.1 X10*3/uL (0.0-0.4); Eosinophils Percent Auto 0.8 % (0-4); Hematocrit 34.6 % (37-47); Hemoglobin 10.1 g/dl (12.0-16.0); Imm Gran Abs Auto 0.03 X10*3/uL (0.00-0.03); Imm Gran Pct Auto 0.3 % (0.0-0.4); Lymphocytes Absolute Auto 1.7 X10*3/uL (1.2-4.9); Lymphocytes Percent Auto 17.2 % (20-40); Mean Corpuscular HGB Conc 29.2 g/dl (31.0-35.0); Mean Corpuscular Volume 102.7 fL (80-98); Mean Platelet Volume 9.5 fL (9.4-12.3); Monocytes Absolute Auto 0.9 X10*3/uL (0.1-1.2); Monocytes Percent Auto 9.3 % (2-11); Neutrophils Percent Auto 72.1 % (45-73); Platelet Count 201 X10*3/uL (160-400); Red Blood Count 3.37 X10*6/uL (4.20-5.50); Red Cell Distribution Width 13.1 % (11.0-16.0); White Blood Count 9.7 X10*3/uL (4.8-10.8)
[2020-11-19 12:02] LABS: VBG Base Excess 30.6 mmol/L; VBG HCO3 57 mmol/L (22-26); VBG pCO2 63 mmHg; VBG pH 7.56 (7.32-7.43); VBG pO2 206 mmHg
[2020-11-19 12:03] LABS: Venous Blood Gas Refer to POC result
[2020-11-19 12:29] LABS: Anion Gap 14 (12-20); Blood Urea Nitrogen 16 mg/dL (9-16); Carbon Dioxide 41 mmol/L (22-29); Chloride 94 mmol/L (96-108); Estimated Glomerular Filt Rate > 60; Glucose Random 112 mg/dL (60-115); Potassium 4.6 mmol/L (3.3-5.1); Sodium 144 mmol/L (135-145)
[2020-11-19] MEDS: Albuterol/Iprat 2.5/0.5MG 3 ML AMPUL.NEB INHALE ×2 (12:32→20:41)
[2020-11-19 12:36] LABS: B Type Natriuretic Peptide 552 pg/mL (<100); Troponin-I High Sensitivity 69.7 ng/L (<3.5-17.0)
[2020-11-19 12:42] LABS: Glucose Urine UA NEG (NEG); Leukocyte Esterase Urine TRACE (NEG); Nitrite Urine NEG (NEG); PH 6.5 (5.0-8.0); UACC Culture Trigger YES; Urine Blood TRACE (NEG); Urine Ketones NEG (NEG); Urine Protein NEG (NEG-TRACE)
[2020-11-19 12:43] LABS: Appearance Urine HAZY; Color Urine YELLOW
[2020-11-19 12:50] LABS: Mucus Urine 2+ /LPF; Renal Epithelial Cells Urine TRACE /LPF; Squamous Epithelial Cell Urine TRACE /LPF
--- NOTE | 2020-11-19 12:57 | ED_ITS ---
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 Patient met with her provider and decided not to have a biopsy done on the nodule. Patient is and DNI/DNR. Patient is here today with her complaining of increased sleepiness x3 days as well as arm and leg pain, both bilateral. Patient is curious if it is the gabapentin that is making her tired is that is the only medicine change she has had recently, she has been taking it for post herpetic neuralgia. She still on 3 L of oxygen at home but she did try to turn it down to 2.5 L to see if that would help it made no difference. She denies any headaches, dizziness, nausea vomiting diarrhea, changes in her bladder or bowels. She states she has been eating and drinking normally and her last meal was last night at dinner time. Related Data Home Medications Medication Instructions Recorded Confirmed calcium carbonate 600 mg calcium 600 mg PO DAILY 03/28/20 11/19/20 (1,500 mg) tablet furosemide 40 mg tablet 40 mg PO Q OTHER DAY 07/04/20 11/19/20 cholecalciferol (vitamin D3) 25 mcg PO DAILY 08/04/20 11/19/20 ipratropium-albuterol 3 ml INHALATION Q4H PRN 08/04/20 11/19/20 vitamin B complex 1 cap PO DAILY 08/04/20 11/19/20 Previous Rx's Medication Instructions Recorded omeprazole 20 mg capsule,delayed 20 mg PO DAILY #90 cap 07/16/20 release valacyclovir 1,000 mg PO TID 10 Days #30 tab 07/28/20 duloxetine 30 mg capsule,delayed 30 mg PO DAILY #90 cap 08/09/20 release metoprolol succinate 50 mg 50 mg PO DAILY #90 tab 08/17/20 tablet,extended release 24 hr oxycodone 5 mg tablet 5 mg PO Q8H 7 Days #21 tab 08/18/20 Ventolin HFA 90 mcg/actuation 2 puff INHALATION Q4-6H PRN 30 09/20/20 aerosol inhaler Days g NS albuterol sulfate 90 mcg/actuation 2 puff INHALATION Q4-6H PRN 30 09/20/20 aerosol inhaler Days #8.5 g tramadol 50 mg tablet 50 mg PO BID PRN 30 Days #60 tab 10/07/20 prednisone 10 mg tablet 10 mg PO DAILY #30 tab 10/24/20 nystatin 400,000 unit PO QID #480 ml 10/25/20 prednisone 5 mg tablet 5 mg PO DAILY #30 tab 10/31/20 gabapentin 300 mg capsule 300 mg PO TID #90 cap 11/06/20 clonazepam 1 mg tablet 1 mg PO BID 30 Days #60 tab 11/17/20 Allergies Allergy/AdvReac Type Severity Reaction Status Date / Time Penicillins Allergy Mild ANAPHYLAXIS Verified 11/19/20 07:12 levofloxacin [Levaquin] Allergy Unknown Unknown Verified 11/19/20 07:12 morphine [Morphine] Allergy Unknown SWELLING Verified 11/19/20 07:12 Review of Systems Review of Systems: Yes all other systems are reviewed and are negative PMFSH Past Medical History Medical History Chronic respiratory failure with hypoxia COPD (chronic obstructive pulmonary disease) COPD (chronic obstructive pulmonary disease) Generalized anxiety disorder Herpes zoster Lung mass Post herpetic neuralgia Respiratory failure with hypoxia and hypercapnia SVT (supraventricular tachycardia) Surgical History H/O cataract extraction H/O right knee surgery History of bunionectomy Hx of cholecystectomy Family History Family History Mother No problems noted. Father No problems noted. Social History Social History Household Members: Spouse Housing: House Do you presently have visiting nurse or other home services: No Alcohol intake: never Patient Tobacco Use Status: Never used Tobacco Use of substances other than those prescribed or required for medical reasons: No Advance Directives: No Advance Directives Information Provided: Yes Physical Exam Vital Signs: Vital Signs: Last Vital Signs Temp 98.0 F 11/19/20 12:09 Pulse 83 11/19/20 14:36 Resp 20 11/19/20 14:36 BP 115/59 L 11/19/20 14:36 Pulse Ox 97 11/19/20 14:36 Oxygen Flow Rate 3 11/19/20 10:49 Body Mass Index 28.3 Const: General: cooperative, healthy appearing, comfortable, no acute distress and well developed Orientation/consciousness: patient oriented x3 Limitations: no limitations HENMT: Head: Yes normal to inspection Eyes: General: appearance normal, both eyes and all related structures Neck: Neck: Yes normal visual inspection and Yes full ROM Resp: Effort & Inspection: normal respiratory effort and able to speak in complete sentences Auscultation: wheezes expiratory wheezes and throughout and diminished lung sounds bilateral throughout Cardio: Rate: regular rate Rhythm: regular rhythm Heart sounds: normal S1 and S2 GI: Inspection: Yes normal to inspection Skin: General skin exam: no rashes or lesions noted Neuro: General: patient oriented x3 Extrem: General: Yes normal to inspection and Yes pedal edema (Left-side 2+ pitting edema right side slight edema, nonpitting.) Course Course Course Narrative: Patient is an 80-year-old female with 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 Patient met with her provider and decided not to have a biopsy done on the nodule. Patient is and DNI/DNR. Patient is here today with her complaining of increased sleepiness x3 days as well as arm and leg pain, both bilateral. Will get EKG, CT chest scan and labs, will give lasix 40mgIV. Reevaluation(s) Reevaluation #1: While discussing the labs with the patient and her , her states the daughter just told them that the patient has not taken her Lasix in the past 3 days she is also not been as ambulatory as normal because of her sleepiness. She mostly sits in a chair at home and then goes to the bathroom sure which is about 3 ft away. All add a CK to the labs and the repeat troponin which is due in approximately half an hour. EKG no acute changes. CT of chest showed ndex spiculated mass involving the posterior segment of the left upper lobe of the lung abutting the left major fissure is reidentified, currently measures 2.5 cm at its maximum dimension, shows interval increase from prior measurement of 1.8 cm at its maximum dimension since the prior study dated 08/22/2020, highly suspicious for malignancy. Note is also made of interval development of a thin walled cavitary lesion at left lung apex measuring 1.8 cm, new since prior study. Time: 14:10 Reevaluation #2: Repeat repeat troponin 75.3, this is not a greater than 50% increase from the original is 69.7. Likely demand ischemia. Patient is breathing easily, she had about 1L of urine output from the 40 mg of Lasix I gave her. Patient's labs show she is holding onto bicarb, question paraneoplastic syndrome or is or something else going on with her kidneys. Consulted with Dr. Granger, he recommended we speak with Nephrology for recommendation. I am repeating BMP, getting mag, phos and BNP. Patient breathing well. Time: 16:12 Reevaluation #3: Spoke with Dr. Eli, supervisor roving department, he advised start patient on acetazolamide 500 IV b.i.d., he will follow patient. I did repeat labs which have not resulted yet. Text to hospitalist for admission. Time: 17:03 MDM - SOB/Dyspnea Medical Records Attestation: I reviewed the patient's medical records. Lab Data Attestation: I reviewed the patient's lab results. Result diagrams: 11/19/20 11:49 11/19/20 11:49 Labs: Lab Results 11/19/20 11/19/20 11/19/20 Range/Units 11:49 11:49 11:49 WBC 9.7 (4.8-10.8) X10*3/uL RBC 3.37 L (4.20-5.50) X10*6/uL Hgb 10.1 L (12.0-16.0) g/dl Hct 34.6 L (37-47) % MCV 102.7 H (80-98) fL MCH 30.0 (27.0-33.0) pg MCHC 29.2 L (31.0-35.0) g/dl RDW 13.1 (11.0-16.0) % Plt Count 201 (160-400) X10*3/uL MPV 9.5 (9.4-12.3) fL Immature Gran % (Auto) 0.3 (0.0-0.4) % Neut % (Auto) 72.1 (45-73) % Lymph % (Auto) 17.2 L (20-40) % [place] % (Auto) 9.3 (2-11) % Eos % (Auto) 0.8 (0-4) % Baso % (Auto) 0.3 (0-2) % Lymph # (Auto) 1.7 (1.2-4.9) X10*3/uL [place] # (Auto) 0.9 (0.1-1.2) X10*3/uL Eos # (Auto) 0.1 (0.0-0.4) X10*3/uL Baso # (Auto) 0.0 (0.0-0.2) X10*3/uL Abs Immat Gran (auto) 0.03 (0.00-0.03) X10*3/uL Absolute Neuts (auto) 7.0 (2.0-8.3) X10*3/uL Absolute Nucleated RBC 0.000 (0.0-0.012) X10*3/uL Nucleated RBC % (auto) 0.0 (0.0-0.2) /100WBC Hold Blue Top VBG pH (7.32-7.43) VBG pCO2 mmHg VBG pO2 mmHg VBG HCO3 (22-26) mmol/L VBG O2 Saturation % VBG Base Excess mmol/L Sodium 144 (135-145) mmol/L Potassium 4.6 (3.3-5.1) mmol/L Chloride 94 L (96-108) mmol/L Carbon Dioxide 41 H* D (22-29) mmol/L Anion Gap 14 (12-20) BUN 16 (9-16) mg/dL Creatinine 0.55 (0.5-1.4) mg/dL Estim Creat Clear Calc 66.0 Estimated GFR > 60 Random Glucose 112 (60-115) mg/dL Calcium 9.0 D (8.4-10.2) mg/dL Total Creatine Kinase (26-140) U/L Troponin I High Sens 69.7 H* D (<3.5-17.0) ng/L B-Natriuretic Peptide 552 H (<100) pg/mL Urine Color Urine Appearance Urine pH (5.0-8.0) Ur Specific [place] (1.005-1.025) Urine Protein (NEG-TRACE) MG/DL Urine Glucose (UA) (NEG) MG/DL Urine Ketones (NEG) MG/DL Urine Blood (NEG) Urine Nitrite (NEG) Ur Leukocyte Esterase (NEG) Urine RBC (0) /HPF Urine WBC (0-4) /HPF Ur Squamous Epith Cells /LPF Ur Renal Epithelial Cell /LPF Urine Bacteria /LPF Urine Mucus /LPF 11/19/20 11/19/20 11/19/20 Range/Units 11:54 12:35 14:46 WBC (4.8-10.8) X10*3/uL RBC (4.20-5.50) X10*6/uL Hgb (12.0-16.0) g/dl Hct (37-47) % MCV (80-98) fL MCH (27.0-33.0) pg MCHC (31.0-35.0) g/dl RDW (11.0-16.0) % Plt Count (160-400) X10*3/uL MPV (9.4-12.3) fL Immature Gran % (Auto) (0.0-0.4) % Neut % (Auto) (45-73) % Lymph % (Auto) (20-40) % [place] % (Auto) (2-11) % Eos % (Auto) (0-4) % Baso % (Auto) (0-2) % Lymph # (Auto) (1.2-4.9) X10*3/uL [place] # (Auto) (0.1-1.2) X10*3/uL Eos # (Auto) (0.0-0.4) X10*3/uL Baso # (Auto) (0.0-0.2) X10*3/uL Abs Immat Gran (auto) (0.00-0.03) X10*3/uL Absolute Neuts (auto) (2.0-8.3) X10*3/uL Absolute Nucleated RBC (0.0-0.012) X10*3/uL Nucleated RBC % (auto) (0.0-0.2) /100WBC Hold Blue Top SEE NOTE VBG pH 7.56 H (7.32-7.43) VBG pCO2 63 mmHg VBG pO2 206 mmHg VBG HCO3 57 H (22-26) mmol/L VBG O2 Saturation 100.0 % VBG Base Excess 30.6 mmol/L Sodium (135-145) mmol/L Potassium (3.3-5.1) mmol/L Chloride (96-108) mmol/L Carbon Dioxide (22-29) mmol/L Anion Gap (12-20) BUN (9-16) mg/dL Creatinine (0.5-1.4) mg/dL Estim Creat Clear Calc Estimated GFR Random Glucose (60-115) mg/dL Calcium (8.4-10.2) mg/dL Total Creatine Kinase (26-140) U/L Troponin I High Sens (<3.5-17.0) ng/L B-Natriuretic Peptide (<100) pg/mL Urine Color YELLOW Urine Appearance HAZY Urine pH 6.5 (5.0-8.0) Ur Specific [place] 1.020 (1.005-1.025) Urine Protein NEG (NEG-TRACE) MG/DL Urine Glucose (UA) NEG (NEG) MG/DL Urine Ketones NEG (NEG) MG/DL Urine Blood TRACE (NEG) Urine Nitrite NEG (NEG) Ur Leukocyte Esterase TRACE H (NEG) Urine RBC 10-14 H (0) /HPF Urine WBC 1-4 (0-4) /HPF Ur Squamous Epith Cells TRACE /LPF Ur Renal Epithelial Cell TRACE /LPF Urine Bacteria NONE /LPF Urine Mucus 2+ /LPF 11/19/20 11/19/20 Range/Units 14:46 14:46 WBC (4.8-10.8) X10*3/uL RBC (4.20-5.50) X10*6/uL Hgb (12.0-16.0) g/dl Hct (37-47) % MCV (80-98) fL MCH (27.0-33.0) pg MCHC (31.0-35.0) g/dl RDW (11.0-16.0) % Plt Count (160-400) X10*3/uL MPV (9.4-12.3) fL Immature Gran % (Auto) (0.0-0.4) % Neut % (Auto) (45-73) % Lymph % (Auto) (20-40) % [place] % (Auto) (2-11) % Eos % (Auto) (0-4) % Baso % (Auto) (0-2) % Lymph # (Auto) (1.2-4.9) X10*3/uL [place] # (Auto) (0.1-1.2) X10*3/uL Eos # (Auto) (0.0-0.4) X10*3/uL Baso # (Auto) (0.0-0.2) X10*3/uL Abs Immat Gran (auto) (0.00-0.03) X10*3/uL Absolute Neuts (auto) (2.0-8.3) X10*3/uL Absolute Nucleated RBC (0.0-0.012) X10*3/uL Nucleated RBC % (auto) (0.0-0.2) /100WBC Hold Blue Top VBG pH (7.32-7.43) VBG pCO2 mmHg VBG pO2 mmHg VBG HCO3 (22-26) mmol/L VBG O2 Saturation % VBG Base Excess mmol/L Sodium (135-145) mmol/L Potassium (3.3-5.1) mmol/L Chloride (96-108) mmol/L Carbon Dioxide (22-29) mmol/L Anion Gap (12-20) BUN (9-16) mg/dL Creatinine (0.5-1.4) mg/dL Estim Creat Clear Calc Estimated GFR Random Glucose (60-115) mg/dL Calcium (8.4-10.2) mg/dL Total Creatine Kinase 47 (26-140) U/L Troponin I High Sens 75.3 H* (<3.5-17.0) ng/L B-Natriuretic Peptide (<100) pg/mL Urine Color Urine Appearance Urine pH (5.0-8.0) Ur Specific [place] (1.005-1.025) Urine Protein (NEG-TRACE) MG/DL Urine Glucose (UA) (NEG) MG/DL Urine Ketones (NEG) MG/DL Urine Blood (NEG) Urine Nitrite (NEG) Ur Leukocyte Esterase (NEG) Urine RBC (0) /HPF Urine WBC (0-4) /HPF Ur Squamous Epith Cells /LPF Ur Renal Epithelial Cell /LPF Urine Bacteria /LPF Urine Mucus /LPF Imaging Data CT scan - chest: Attestation: I personally reviewed and interpreted this imaging study as follows: Radiologist's impression: Niharika Montelongo 80 F [address] [id number] Scan ReportSigned Patient: Niharika MontelongoMR#: [id number]: Acct:[id number]/Sex: 80 / FADM Date: 11/19/20Loc: [address] Dr: Ordering Physician: Chiquis Bain PA-C Date of Service: 11/19/20 Procedure(s): CT chest wo con Accession Number(s): [id number] cc: Chiquis Bain PA-C~ EXAMINATION: CT CHEST WITHOUT CONTRAST CLINICAL INFORMATION: History of left upper lobar lung nodule. COMPARISON: CT of the chest done on 08/22/2020. TECHNIQUE: Multidetector volumetric CT imaging of the chest was done. Axial MIP volume rendering provided. Sagittal and coronal reformatted images were obtained. This CT examination was performed using dose optimization techniques as appropriate, variously including the following: *Automated exposure control *Adjustment of mA and/or kV according to patient size (this includes techniques or standardized protocols for targeted exams where dose is matched to indication/reason for exam; i.e. 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 Healing rib fractures are noted within the right hemithorax. LUNGS: The index spiculated mass at left upper lobe of the lung involving the posterior segment, abutting the superior part of the left major fissure is reidentified, currently measures 2.5 x 1.4 cm, (image #118 series 6), previously measured 1.8 x 1.3 cm, shows interval increase, highly suspicious for malignancy. Interval development of a thin walled cavitary lesion identified within the left lung apex posterolaterally superiorly, measures 1.8 cm at its maximum dimension (image #54 series 6). Underlying emphysematous disease and bronchiectatic changes associated with peribronchial thickening and partial loss of volume involving the right middle, right lower, and the lingular segment of the left upper lobe appear unchanged. The tracheobronchial tree is patent. MEDIASTINUM: No pathologically enlarged mediastinal or hilar lymphadenopathy. The pulmonary arteries remain enlarged likely represent underlying pulmonary arterial hypertension related to emphysematous disease. Atherosclerotic disease of the aorta including significant coronary artery calcifications are present. Mitral valve annular calcification is seen. Overall no significant change since 08/22/2020. PLEURA: There is no pleural effusion. No pleural mass or thickening. AXILLA: No lymphadenopathy. UPPER ABDOMEN: No evidence of any adrenal mass. OSSEOUS STRUCTURES: Bilateral large shoulder joint effusion, appears similar to prior study. Marked diffuse osteopenia and marked platyspondylia of mid thoracic vertebrae, appears similar. CT/CT chest wo con IMPRESSION: 1. The index spiculated mass involving the posterior segment of the left upper lobe of the lung abutting the left major fissure is reidentified, currently measures 2.5 cm at its maximum dimension, shows interval increase from prior measurement of 1.8 cm at its maximum dimension since the prior study dated 08/22/2020, highly suspicious for malignancy. Note is also made of interval development of a thin walled cavitary lesion at left lung apex measuring 1.8 cm, new since prior study. 2. No other significant interval change. Dictated By:PITO MADRIGAL MDSigned By:<Electronically signed by PITO MADRIGAL MD in OV>11/19/20 1216 DD/ 1106 ECG Data Attestation: I personally reviewed and interpreted this ECG as follows: Interpretation: [facility] [facility], [place] [address]Vabaxphpifdqzxniyi ReportDraft Patient: Niharika MontelongoMR#: [id number]: 05/10Acct:[id number]/Sex: 80 / FADM Date: 11/19/20Loc: HO.EDAttending Dr: Ordering Physician: Chiquis Bain PA-C Date of Service: 11/19/20 Procedure(s): ECG 12 lead EKG Accession Number(s): [id number] cc: ~ Test Reason : DYSPNEA Blood Pressure : / mmHG Vent. Rate : 076 BPM Atrial Rate : 076 BPM P-R Int : 124 ms QRS Dur : 076 ms QT Int : 364 ms P-R-T Axes : 073 015 072 degrees QTc Int : 409 ms Normal sinus rhythm Low voltage QRS Borderline ECG When compared with ECG of 11-NOV-2020 08:11, No significant change was found Referred By: Chiquis Bain Electronically Signed By: Dictated By:Signed By: DD/ 1203TD/TT: 11/19/20 1330Transcriptionist: Discharge Plan Discharge Prescriptions: No Action omeprazole 20 mg capsule,delayed release(DR/EC) 20 mg PO DAILY Qty: 90 RF: 1 metoprolol succinate 50 mg tablet extended release 24 hr 50 mg PO DAILY Qty: 90 RF: 1 albuterol sulfate [Ventolin HFA] 90 mcg/actuation HFA aerosol inhaler 2 puff inhalation Q4-6H PRN (Reason: shortness of breath or wheezing) 30 Days RF: 3 tramadol 50 mg tablet 50 mg PO BID PRN (Reason: pain) 30 Days Qty: 60 RF: 0 prednisone 10 mg tablet 10 mg PO DAILY Qty: 30 RF: 0 prednisone 5 mg tablet 5 mg PO DAILY Qty: 30 RF: 0 gabapentin 300 mg capsule 300 mg PO TID Qty: 90 RF: 0 clonazepam 1 mg tablet 1 mg PO BID 30 Days Qty: 60 RF: 0 vitamin B complex Capsule 1 cap PO DAILY RF: 0 cholecalciferol (vitamin D3) 25 mcg (1,000 unit) Tablet 25 mcg PO DAILY RF: 0 ipratropium-albuterol 0.5 mg-3 mg(2.5 mg base)/3 mL solution for nebulization 3 ml inhalation Q4H PRN (Reason: Shortness Of Breath Or Wheezing) RF: 0 nystatin 100,000 unit/mL suspension 400,000 unit PO QID Qty: 480 RF: 2 valacyclovir 1 gram tablet 1,000 mg PO TID 10 Days Qty: 30 RF: 0 oxycodone 5 mg tablet 5 mg PO Q8H 7 Days Qty: 21 RF: 0 furosemide 40 mg tablet 40 mg PO Q OTHER DAY RF: 0 duloxetine 30 mg capsule,delayed release(DR/EC) 30 mg PO DAILY Qty: 90 RF: 1 calcium carbonate [Calcium 600] 600 mg calcium (1,500 mg) tablet 600 mg PO DAILY RF: 0 albuterol sulfate [Ventolin HFA] 90 mcg/actuation HFA aerosol inhaler 2 puff inhalation Q4-6H PRN (Reason: shortness of breath or wheezing) 30 Days Qty: 8.5 RF: 3
[2020-11-19] MEDS: Furosemide 40 MG/4 ML VIAL IVPUSH (13:36)
--- NOTE | 2020-11-19 13:53 | PC.NURSE ---
PT GIVEN IV LASIX, PLACED PERIWICK ON PT D/T PT UNABLE TO GET OUT OF BED QUICKLY. NAD ATT, WCTM.
[2020-11-19 15:32] LABS: Troponin-I High Sensitivity 75.3 ng/L (<3.5-17.0)
[2020-11-19] MEDS: fentaNYL citrate/PF 100 MCG/2 ML VIAL 25 MCG IVPUSH ×2 (17:55→21:10)
[2020-11-19 18:48] LABS: Blood Urea Nitrogen 15 mg/dL (9-16); Calcium 9.8 mg/dL (8.4-10.2); Creatinine Clr Calc Pharmacy 61.5; Estimated Glomerular Filt Rate > 60; Glucose Random 102 mg/dL (60-115); Magnesium 1.8 mg/dL (1.6-2.6); Phosphorus 2.3 mg/dL (2.7-4.5)
[2020-11-19 18:53] LABS: B Type Natriuretic Peptide 608 pg/mL (<100)
[2020-11-19 18:59] LABS: Anion Gap 21 (12-20); Carbon Dioxide 42 mmol/L (22-29); Chloride 88 mmol/L (96-108); Potassium 3.5 mmol/L (3.3-5.1); Sodium 147 mmol/L (135-145)
--- NOTE | 2020-11-19 19:25 | PC.NURSE ---
Patient requesting additional pain medication. Pt medicated at 17:55 with Fentanyl 25mcg, but states no one gave me any pain medications . Provider notified/aware.
[2020-11-19 20:51] LABS: D Dimer 297 NG/ML
[2020-11-19] MEDS: Azithromycin 500 MG TABLET PO (21:10)
[2020-11-19] MEDS: methylPREDNISolone Sod Succ 40 MG/ML VIAL IVPUSH (21:11)
[2020-11-19] MEDS: Enoxaparin Sodium 40 MG/0.4 ML SYRINGE SUBCUT (21:12)
[2020-11-19] MEDS: 0.9 % Sodium Chloride 1,000 ML 100 ML IVCONT (21:12)
[2020-11-19 21:34] LABS: Anion Gap 22 (12-20); Blood Urea Nitrogen 15 mg/dL (9-16); Calcium 9.6 mg/dL (8.4-10.2); Carbon Dioxide 41 mmol/L (22-29); Chloride 86 mmol/L (96-108); Creatinine Clr Calc Pharmacy 59.6; Estimated Glomerular Filt Rate > 60; Glucose Random 104 mg/dL (60-115); Potassium 3.5 mmol/L (3.3-5.1); Sodium 145 mmol/L (135-145)
[2020-11-19] MEDS: acetaZOLAMIDE sodium 500 MG VIAL IVPUSH (22:02)
[2020-11-20] VITALS (20 sets, daily range): BP systolic 120–158; BP diastolic 62–91; PULSE 73–175; RESP 15–24; TEMP 36.7–37.3; O2SAT 93–97; BMI 21.4
--- NOTE | 2020-11-20 | ECG_ITS ---
Test Reason : TTACHYCARDIA Blood Pressure : / mmHG Vent. Rate : 161 BPM Atrial Rate : 340 BPM P-R Int : 000 ms QRS Dur : 072 ms QT Int : 268 ms P-R-T Axes : 000 041 117 degrees QTc Int : 438 ms Atrial fibrillation with rapid ventricular response Minimal voltage criteria for LVH, may be normal variant ST depression, consider subendocardial injury Nonspecific T wave abnormality Abnormal ECG When compared with ECG of 19-NOV-2020 12:03, Atrial fibrillation with rapid ventricular response has replaced Normal sinus rhythm ST changes related to AF with RVR Referred By: Lele Silver Electronically Signed By:NICOLE MCALLISTER MD
[2020-11-20] MEDS: 0.9 % Sodium Chloride Flush 3 ML SYRINGE IVFLUSH ×4 (00:03→21:39)
--- NOTE | 2020-11-20 00:04 | PC.NURSE ---
patient complete bed change x2, patient has no complaints at this time, multiple philippe rings for blankets, patient is alert and oriented, but ringing the call philippe asking for the call philippe. educating patient on [place] and call philippe uses. patient seems satisfied with answers to questions. awaiting bed assignment.
--- NOTE | 2020-11-20 00:17 | PM.IMHP ---
History of Present Illness Date of Service: 11/20/20 Chief Complaint: Generalized weakness 80-year-old female with a past medical history of COPD, chronic respiratory failure on home oxygen, had history of stroke, post herpetic neurology, anxiety, depression presented to the hospital with a chief complaint of generalized weakness. Patient reports that he has been having generalized weakness and fatigue over the past few days. She usually walks with the help of a walker. Denies any chest pain or palpitations. Denies any numbness tingling. Mentions that she has not be eating well over the past few days. Hence decided to come to the ER for further evaluation. Patient denies any urinary symptoms. Mentions that she has been taking Lasix at home. Review of all other systems is negative except mentioned above ER course: Per ER team patient noted to be short of breath, diminished breath sounds; noted to have mildly elevated proBNP; CT chest showed spiculated mass in the lung; which is increasing in size troponins are indeterminate. EKG nonischemic. Admitted to the hospital for further management. ER team mentioned the patient's bicarb level is elevated in the serum-discussed with Nephrology who recommended Diamox. Patient was given a dose of Diamox in the ER. [facility] Medical History (Updated 11/20/20 @ 10:41 by Cameron Mijares MD) Chronic respiratory failure with hypoxia COPD (chronic obstructive pulmonary disease) COPD (chronic obstructive pulmonary disease) Generalized anxiety disorder Herpes zoster Lung mass Paroxysmal atrial fibrillation Post herpetic neuralgia Respiratory failure with hypoxia and hypercapnia SVT (supraventricular tachycardia) Family History Mother No problems noted. Father No problems noted. Surgical History H/O cataract extraction H/O right knee surgery History of bunionectomy Hx of cholecystectomy Social History Household Members: Spouse Housing: House Do you presently have visiting nurse or other home services: Yes ([facility]NA and PT services) Alcohol intake: never Patient Tobacco Use Status: Never used Tobacco service: No Current occupational status: retired Meds Allergies Allergy/AdvReac Type Severity Reaction Status Date / Time Penicillins Allergy Mild ANAPHYLAXIS Verified 11/19/20 07:12 levofloxacin [Levaquin] Allergy Unknown Unknown Verified 11/19/20 07:12 morphine [Morphine] Allergy Unknown SWELLING Verified 11/19/20 07:12 Active Medications: Current Medications Generic Name Dose Route Start Last Admin Trade Name Freq PRN Reason Stop Dose Admin Acetaminophen 650 mg 11/19/20 20:00 Acetaminophen 325 Mg Tablet PO Q6H PRN Pain, Mild (Pain Scale 1-3) Acetazolamide 500 mg 11/19/20 21:00 11/19/20 22:02 Acetazolamide Sodium 500 Mg Vial IVPUSH 500 mg BID LUCY Administration Albuterol/Ipratropium 3 ml 11/19/20 20:00 11/19/20 20:41 Albuterol/Iprat 2.5/0.5mg 3 Ml Ampul.Neb INHALE 3 ml RQ4H WHILE AWAKE LUCY Administration Azithromycin 500 mg 11/19/20 22:00 11/19/20 21:10 Azithromycin 500 Mg Tablet PO 500 mg Q24H LUCY Administration Enoxaparin Sodium 40 mg 11/19/20 22:00 11/19/20 21:12 Enoxaparin Sodium 40 Mg/0.4 Ml Syringe SUBCUT 40 mg Q24H LUCY Administration Sodium Chloride 1,000 mls @ 100 mls/hr 11/19/20 20:00 11/19/20 21:12 Ns IVCONT 100 mls/hr .Q10H LUCY Administration Methylprednisolone Sodium Succinate 40 mg 11/19/20 21:00 11/19/20 21:11 Methylprednisolone Sod Succ 40 Mg/Ml Vial IVPUSH 40 mg Q6H LUCY Administration Pharmacy Consult 1 each 11/19/20 17:07 Consult Rx Perform Med Rec MISCELLANE ONCE PRN Consult order Sodium Chloride 3 ml 11/20/20 00:00 11/20/20 00:03 0.9 % Sodium Chloride Flush 3 Ml Syringe IVFLUSH 3 ml QSHIFT LUCY Administration Home Medications Medication Instructions Recorded Confirmed Last Taken Type calcium carbonate 600 mg calcium 600 mg PO DAILY 03/28/20 11/19/20 11/18/20 History (1,500 mg) tablet furosemide 40 mg tablet 40 mg PO Q OTHER DAY 07/04/20 11/19/20 11/18/20 History cholecalciferol (vitamin D3) 25 mcg PO DAILY 08/04/20 11/19/20 11/18/20 History ipratropium-albuterol 3 ml INHALATION Q4H PRN 08/04/20 11/19/20 11/18/20 History vitamin B complex 1 cap PO DAILY 08/04/20 11/19/20 11/18/20 History Physical Exam Vital Signs and Narrative: Vital Signs: Last Vital Signs Temp 98.0 F 11/19/20 23:44 Pulse 93 11/19/20 23:44 Resp 16 11/19/20 23:44 BP 130/62 11/19/20 23:44 Pulse Ox 97 11/19/20 14:36 Oxygen Flow Rate 3 11/19/20 10:49 Body Mass Index 28.3 Gen: Appears be in no acute distress HEENT: NCAT, Moist mucosa. Pulmonary: Diminished lung sounds; on supplemental oxygen. CVS: Normal S1-S2 Abdomen: BS+, Soft, Nontender Extremities: Warm well perfused Neuro: Alert and awake. Results Labs CBC and Chem 7: 11/20/20 06:44 11/20/20 06:44 Labs: Laboratory Results - last 24 hr 11/19/20 11/19/20 11/19/20 11:49 11:49 11:49 MCV 102.7 H MCH 30.0 MCHC 29.2 L RDW 13.1 Plt Count 201 MPV 9.5 Immature Gran % (Auto) 0.3 Neut % (Auto) 72.1 Lymph % (Auto) 17.2 L [place] % (Auto) 9.3 Eos % (Auto) 0.8 Baso % (Auto) 0.3 Lymph # (Auto) 1.7 [place] # (Auto) 0.9 Eos # (Auto) 0.1 Baso # (Auto) 0.0 Abs Immat Gran (auto) 0.03 Absolute Neuts (auto) 7.0 Absolute Nucleated RBC 0.000 Nucleated RBC % (auto) 0.0 D-Dimer Hold Blue Top VBG pH VBG pCO2 VBG pO2 VBG HCO3 VBG O2 Saturation VBG Base Excess Anion Gap 14 Estim Creat Clear Calc 66.0 Estimated GFR > 60 Random Glucose 112 Calcium 9.0 D Phosphorus Magnesium Total Creatine Kinase Troponin I High Sens 69.7 H* D B-Natriuretic Peptide 552 H Urine Color Urine Appearance Urine pH Ur Specific [place] Urine Protein Urine Glucose (UA) Urine Ketones Urine Blood Urine Nitrite Ur Leukocyte Esterase Urine RBC Urine WBC Ur Squamous Epith Cells Ur Renal Epithelial Cell Urine Bacteria Urine Mucus 11/19/20 11/19/20 11/19/20 11:54 12:35 14:46 MCV MCH MCHC RDW Plt Count MPV Immature Gran % (Auto) Neut % (Auto) Lymph % (Auto) [place] % (Auto) Eos % (Auto) Baso % (Auto) Lymph # (Auto) [place] # (Auto) Eos # (Auto) Baso # (Auto) Abs Immat Gran (auto) Absolute Neuts (auto) Absolute Nucleated RBC Nucleated RBC % (auto) D-Dimer 297 Hold Blue Top SEE NOTE VBG pH 7.56 H VBG pCO2 63 VBG pO2 206 VBG HCO3 57 H VBG O2 Saturation 100.0 VBG Base Excess 30.6 Anion Gap Estim Creat Clear Calc Estimated GFR Random Glucose Calcium Phosphorus Magnesium Total Creatine Kinase Troponin I High Sens B-Natriuretic Peptide Urine Color YELLOW Urine Appearance HAZY Urine pH 6.5 Ur Specific [place] 1.020 Urine Protein NEG Urine Glucose (UA) NEG Urine Ketones NEG Urine Blood TRACE Urine Nitrite NEG Ur Leukocyte Esterase TRACE H Urine RBC 10-14 H Urine WBC 1-4 Ur Squamous Epith Cells TRACE Ur Renal Epithelial Cell TRACE Urine Bacteria NONE Urine Mucus 2+ 11/19/20 11/19/20 11/19/20 14:46 14:46 18:15 MCV MCH MCHC RDW Plt Count MPV Immature Gran % (Auto) Neut % (Auto) Lymph % (Auto) [place] % (Auto) Eos % (Auto) Baso % (Auto) Lymph # (Auto) [place] # (Auto) Eos # (Auto) Baso # (Auto) Abs Immat Gran (auto) Absolute Neuts (auto) Absolute Nucleated RBC Nucleated RBC % (auto) D-Dimer Hold Blue Top VBG pH VBG pCO2 VBG pO2 VBG HCO3 VBG O2 Saturation VBG Base Excess Anion Gap 21 H Estim Creat Clear Calc 61.5 Estimated GFR > 60 Random Glucose 102 Calcium 9.8 D Phosphorus 2.3 L Magnesium 1.8 Total Creatine Kinase 47 Troponin I High Sens 75.3 H* B-Natriuretic Peptide Urine Color Urine Appearance Urine pH Ur Specific [place] Urine Protein Urine Glucose (UA) Urine Ketones Urine Blood Urine Nitrite Ur Leukocyte Esterase Urine RBC Urine WBC Ur Squamous Epith Cells Ur Renal Epithelial Cell Urine Bacteria Urine Mucus 11/19/20 11/19/20 18:15 20:41 MCV MCH MCHC RDW Plt Count MPV Immature Gran % (Auto) Neut % (Auto) Lymph % (Auto) [place] % (Auto) Eos % (Auto) Baso % (Auto) Lymph # (Auto) [place] # (Auto) Eos # (Auto) Baso # (Auto) Abs Immat Gran (auto) Absolute Neuts (auto) Absolute Nucleated RBC Nucleated RBC % (auto) D-Dimer Hold Blue Top VBG pH VBG pCO2 VBG pO2 VBG HCO3 VBG O2 Saturation VBG Base Excess Anion Gap 22 H Estim Creat Clear Calc 59.6 Estimated GFR > 60 Random Glucose 104 Calcium 9.6 Phosphorus Magnesium Total Creatine Kinase Troponin I High Sens B-Natriuretic Peptide 608 H Urine Color Urine Appearance Urine pH Ur Specific [place] Urine Protein Urine Glucose (UA) Urine Ketones Urine Blood Urine Nitrite Ur Leukocyte Esterase Urine RBC Urine WBC Ur Squamous Epith Cells Ur Renal Epithelial Cell Urine Bacteria Urine Mucus Imaging Radiologist's Impressions: Impressions Chest CT 11/19/20 11:06 IMPRESSION: 1. The index spiculated mass involving the posterior segment of the left upper lobe of the lung abutting the left major fissure is reidentified, currently measures 2.5 cm at its maximum dimension, shows interval increase from prior measurement of 1.8 cm at its maximum dimension since the prior study dated 08/22/2020, highly suspicious for malignancy. Note is also made of interval development of a thin walled cavitary lesion at left lung apex measuring 1.8 cm, new since prior study. 2. No other significant interval change. Assessment and Plan (1) COPD (chronic obstructive pulmonary disease): Status: Acute 80-year-old female with a past medical history of COPD, chronic respiratory failure on home oxygen, had history of started, post herpetic neurology a presented to the hospital with a chief complaint of generalized weakness and shortness of breath. Noted to have diminished lung sounds. COPD exacerbation: Will keep the patient on Solu-Medrol and DuoNebs. Supplemental oxygen will be continued with full//at 93%. Patient currently able to speak in full sentences, not in respiratory distress. Will continue to monitor. Azithromycin Cavitary lung lesion:Pulmonology consult. Afib with RVR: Patient heart rate went up to 190 subsequently improved on its own without intervention. Will keep the patient on metoprolol p.r.n.. Patient does carry history of SVT. EKG consistent with AFib. Indeterminate troponins: Will obtain an echocardiogram. Cardiology consult Metabolic alkalosis: Likely contraction. Will keep the patient on gentle IV fluids. ER team spoke to nephrology-recommended Diamox. Will await further recommendations from Nephrology in the morning in regards continue [place] of Diamox. History of spiculated lung mass: Patient lung mass on the CT chest is increasing in size. From prior records patient does not wanted to pursue further treatment. Oncology consult.
[2020-11-20] MEDS: oxyCODONE HCl Immed Release 5 MG TABLET PO ×3 (01:30→17:25)
[2020-11-20] MEDS: methylPREDNISolone Sod Succ 40 MG/ML VIAL IVPUSH ×4 (01:30→21:37)
[2020-11-20] MEDS: Albuterol/Iprat 2.5/0.5MG 3 ML AMPUL.NEB INHALE ×5 (01:31→20:12)
[2020-11-20 01:47] LABS: COVID-19 Test Negative (Negative)
--- NOTE | 2020-11-20 02:55 | PC.NURSE ---
PATIENT ON TELE MONITOR, HEART RATE GOING HIGH 190, EKG STAT COMPLETED SHOWING A FIB WITH RVR, PATIENT HAVING NO HISTORY OF THIS. PATIENT SLEEPING AT THE TIME OF THE CHANGE. WHEN WAKING PATIENT COMING OUT OF A FIB INTO NORMAL SINUS, THEN BACK TO A FIB. HOSPITALIST CONTACTED AND AWAITING ADDITIONAL ORDERS FOR MEDICATIONS FOR RAPID HEART RATE. EKG SENT TO HOSPITALIST. PATIENT GOING IN AND OUT OF THE A.FIB. DENIES CHEST PAIN OR DISCOMFORT, PATIENT ONLY STATING THAT SHE WANTS WATER AND ICE CHIPS. REMINDING PATIENT SHE IS NPO, PATIENT VERBALIZING HER DISSATISFACTION OF THAT ORDER AND CONTINUES TO ASK FOR BEVERAGES.
[2020-11-20] MEDS: Metoprolol Tartrate 5 MG/5 ML VIAL IVPUSH (03:14)
[2020-11-20] MEDS: Metoprolol Tartrate 25 MG TABLET PO (03:52)
[2020-11-20 07:12] LABS: Basophils Percent Auto 0.1 % (0-2); Hematocrit 39.8 % (37-47); Imm Gran Abs Auto 0.04 X10*3/uL (0.00-0.03); Imm Gran Pct Auto 0.4 % (0.0-0.4); Lymphocytes Absolute Auto 0.3 X10*3/uL (1.2-4.9); Lymphocytes Percent Auto 3.7 % (20-40); MANUAL DIFF FLAG SCAN; Mean Corpuscular HGB Conc 30.2 g/dl (31.0-35.0); Mean Corpuscular Hemoglobin 29.6 pg (27.0-33.0); Mean Platelet Volume 9.9 fL (9.4-12.3); Monocytes Absolute Auto 0.1 X10*3/uL (0.1-1.2); Monocytes Percent Auto 0.6 % (2-11); Neutrophils Absolute Auto 8.6 X10*3/uL (2.0-8.3); Neutrophils Percent Auto 95.2 % (45-73); Platelet Count 250 X10*3/uL (160-400); Red Blood Count 4.06 X10*6/uL (4.20-5.50); Red Cell Distribution Width 12.8 % (11.0-16.0); SCAN SMEAR FLAG 1
[2020-11-20 07:44] LABS: Anion Gap 15 (12-20); Blood Urea Nitrogen 19 mg/dL (9-16); Calcium 9.5 mg/dL (8.4-10.2); Carbon Dioxide 39 mmol/L (22-29); Chloride 92 mmol/L (96-108); Creatinine Clr Calc Pharmacy 54.2; Estimated Glomerular Filt Rate > 60; Glucose Random 148 mg/dL (60-115); Potassium 3.4 mmol/L (3.3-5.1); Sodium 143 mmol/L (135-145)
[2020-11-20 07:54] LABS: SLIDE REVIEW VERIFIED
--- NOTE | 2020-11-20 08:00 | PC.NURSE ---
BM X 1 LARGE BROWN STOOL (FORMED WITH MOD OF LIQUID STOOL)
--- NOTE | 2020-11-20 08:19 | PC.NURSE ---
Late Entry: This RN questioned regarding Diamox & Normal saline infusion orders. Hospitalist stated just give the Diamox just in case, but just the one dose . Pt being admitted for COPD exacerbation with possible malignant mass. This RN relayed this information to JULISA Barrera in RN to RN report.
--- NOTE | 2020-11-20 10:29 | P.EN_ITS ---
Event Note Date of Service: 11/20/20 Event Note: Patient seen and examined in the emergency room and plan of care d iscussed with the patient and Chase at the bedside. 80-year-old female with a past medical history of COPD, chronic respiratory failure on home oxygen, had history of started, post herpetic neurology and put on gabapentin, presented with generalized weakness and shortness of breath COPD exacerbation with chronic respiratoy failure on home O2 at home. Treat with bronchodilators, steoid, and oxygen--can change to PO Prednisone today Azithro Cavitary lung lesion:Pulmonology consult. likey malignant Afib with RVR:Rate is better now, adding cardizem, Eliquis for OAC, echo tomorrow, cardiology following Metabolic alkalosis: contractile alkalosis which is chronic likely from Lasix DC Lasix, as not in hear failure. Diamox given yesterday and is better. nephrology to see. History of spiculated lung mass: Patient lung mass on the CT chest is increasing in size. From prior records patient does not wanted to pursue further treatment. Oncology consult.
--- NOTE | 2020-11-20 10:30 | PC.NURSE ---
pt seen by drs. cheng(special service representative) and guevara (kidney), pt/family aware of plan of care for admission to hosp.
--- NOTE | 2020-11-20 10:36 | PM.CNCAR ---
History of Present Illness History of Present Illness Date of Service: 11/20/20 Requesting physician: Lele Silver Consult reason: atrial fibrillation Chief complaint: Sob Narrative: I was requested to see Niharika in cardiology consultation today because of development of atrial fibrillation rapid last night. She was in the emergency room, came for confusion, weakness and was noted to have significant metabolic alkalosis, elevated BNP and COPD exacerbation. While in the ED she developed atrial fibrillation rapid ventricular response, no obvious symptoms. She converted to sinus rhythm and this morning remains in sinus rhythm. She has chronic shortness of breath and exertion with marked limitation to activity level due to COPD with chronic hypoxic respiratory failure on home oxygen. was at bedside and declines any prior history of congestive heart failure. She is on Lasix therapy at home due to bilateral leg edema without any obvious heart failure diagnosis. She has no prior history of atrial fibrillation. No history of myocardial infarction or coronary artery disease or revascularization. Cardiology consult was sought for management of her atrial fibrillation. She is also noted to have elevated BNP of unclear etiology. She says since started on gabapentin she has had some confusion. Gabapentin was started for post herpetic neuralgia Review of Systems Constitutional: Constitutional: Denies chills, Reports fatigue, Denies fever(s) and Denies weight gain Cardiovascular: Cardiovascular: Denies chest pain, Reports pedal edema, Denies lightheadedness, Denies Loss of Consciousness, Denies palpitations, Reports dyspnea on exertion and Denies orthopnea Respiratory: Respiratory: Denies cough and Reports dyspnea on exertion Gastrointestinal: Gastrointestinal: Reports no additional gastrointestinal complaints Genitourinary: Genitourinary: Reports no additional female genitourinary complaints Musculoskeletal: Musculoskeletal: Reports no additional musculoskeletal complaints Neurologic: Reports radicular pain and Reports other Psychiatric: Psychiatric: Reports anxiety Endocrine: Endocrine: Reports no additional endocrine complaints, Reports fatigue and Denies palpitations Hematologic/Lymphatic: Hematologic/Lymphatic: Reports no additional hematologic/lymphatic complaints [facility] Past Medical History Medical History (Updated 11/20/20 @ 10:41 by Cameron Mijares MD) Chronic respiratory failure with hypoxia COPD (chronic obstructive pulmonary disease) COPD (chronic obstructive pulmonary disease) Generalized anxiety disorder Herpes zoster Lung mass Paroxysmal atrial fibrillation Post herpetic neuralgia Respiratory failure with hypoxia and hypercapnia SVT (supraventricular tachycardia) Family History Family History Mother No problems noted. Father No problems noted. Surgical History Surgical History H/O cataract extraction H/O right knee surgery History of bunionectomy Hx of cholecystectomy Social History Social History Household Members: Spouse Housing: House Do you presently have visiting nurse or other home services: No Alcohol intake: never Patient Tobacco Use Status: Never used Tobacco Use of substances other than those prescribed or required for medical reasons: No Advance Directives: No Advance Directives Information Provided: Yes Meds Allergies Allergy/AdvReac Type Severity Reaction Status Date / Time Penicillins Allergy Mild ANAPHYLAXIS Verified 11/19/20 07:12 levofloxacin [Levaquin] Allergy Unknown Unknown Verified 11/19/20 07:12 morphine [Morphine] Allergy Unknown SWELLING Verified 11/19/20 07:12 Active Medications: Current Medications Generic Name Dose Route Start Last Admin Trade Name Freq PRN Reason Stop Dose Admin Acetaminophen 650 mg 11/19/20 20:00 Acetaminophen 325 Mg Tablet PO Q6H PRN Pain, Mild (Pain Scale 1-3) Acetazolamide 500 mg 11/19/20 21:00 11/20/20 09:17 Acetazolamide Sodium 500 Mg Vial IVPUSH Not Given BID LUCY Albuterol/Ipratropium 3 ml 11/19/20 20:00 11/20/20 07:51 Albuterol/Iprat 2.5/0.5mg 3 Ml Ampul.Neb INHALE 3 ml RQ4H WHILE AWAKE LUCY Administration Albuterol/Ipratropium 3 ml 11/20/20 00:27 Albuterol/Iprat 2.5/0.5mg 3 Ml Ampul.Neb INHALE RQ6H PRN Shortness of Breath/Wheezing Albuterol/Ipratropium 3 ml 11/20/20 00:28 11/20/20 01:31 Albuterol/Iprat 2.5/0.5mg 3 Ml Ampul.Neb INHALE 3 ml Q4H PRN Administration Shortness Of Breath Or Wheezing Azithromycin 500 mg 11/19/20 22:00 11/19/20 21:10 Azithromycin 500 Mg Tablet PO 500 mg Q24H LUCY Administration Clonazepam 1 mg 11/20/20 09:00 Clonazepam 1 Mg Tablet PO BID [facility] Duloxetine HCl 30 mg 11/20/20 09:00 Duloxetine Hcl 30 Mg Capsule. PO DAILY [facility] Enoxaparin Sodium 40 mg 11/19/20 22:00 11/19/20 21:12 Enoxaparin Sodium 40 Mg/0.4 Ml Syringe SUBCUT 40 mg Q24H LUCY Administration Gabapentin 300 mg 11/20/20 09:00 Gabapentin 300 Mg Capsule PO TID [facility] Sodium Chloride 1,000 mls @ 100 mls/hr 11/19/20 20:00 11/19/20 21:12 Ns IVCONT 100 mls/hr .Q10H LUCY Administration Methylprednisolone Sodium Succinate 40 mg 11/19/20 21:00 11/20/20 01:30 Methylprednisolone Sod Succ 40 Mg/Ml Vial IVPUSH 40 mg Q6H LUCY Administration Metoprolol Succinate 50 mg 11/20/20 09:00 Metoprolol Succinate Er 50 Mg Tab.Er.24h PO DAILY [facility] Protocol Metoprolol Tartrate 5 mg 11/20/20 02:50 11/20/20 03:14 Metoprolol Tartrate 5 Mg/5 Ml Vial IVPUSH 5 mg Q4H PRN Administration HR>125 Omeprazole 20 mg 11/20/20 06:30 Omeprazole 20 Mg Capsule. PO DAILY@0630 [facility] Oxycodone HCl 5 mg 11/20/20 00:30 11/20/20 01:30 Oxycodone Hcl Immed Release 5 Mg Tablet PO 5 mg Q8H [facility] Administration Pharmacy Consult 1 each 11/19/20 17:07 Consult Rx Perform Med Rec MISCELLANE ONCE PRN Consult order Sodium Chloride 3 ml 11/20/20 00:00 11/20/20 00:03 0.9 % Sodium Chloride Flush 3 Ml Syringe IVFLUSH 3 ml QSHIFT [facility] Administration Tramadol HCl 50 mg 11/20/20 00:28 Tramadol Hcl 50 Mg Tablet PO BID PRN pain Valacyclovir HCl 1,000 mg 11/20/20 09:00 Valacycyclovir Hcl 1,000 Mg Tablet PO TID [facility] Vitamin D 25 mcg 11/20/20 09:00 Cholecalciferol (Vitamin D3) 25 Mcg Tablet PO DAILY [facility] 1st EKG on presentation shows normal sinus rhythm with low-voltage QRS with nonspecific ST changes Second EKG shows atrial fibrillation with rapid ventricular response with nonspecific ST T wave changes. Home Medications Medication Instructions Recorded Confirmed Last Taken Type calcium carbonate 600 mg calcium 600 mg PO DAILY 03/28/20 11/19/20 11/18/20 History (1,500 mg) tablet furosemide 40 mg tablet 40 mg PO Q OTHER DAY 07/04/20 11/19/20 11/18/20 History cholecalciferol (vitamin D3) 25 mcg PO DAILY 08/04/20 11/19/20 11/18/20 History ipratropium-albuterol 3 ml INHALATION Q4H PRN 08/04/20 11/19/20 11/18/20 History vitamin B complex 1 cap PO DAILY 08/04/20 11/19/20 11/18/20 History Physical Exam Vital Signs: Vital Signs: Last Vital Signs Temp 98.1 F 11/20/20 08:00 Pulse 85 11/20/20 08:00 Resp 15 11/20/20 08:00 BP 144/83 H 11/20/20 08:00 Pulse Ox 97 11/20/20 08:00 Oxygen Flow Rate 3 11/19/20 10:49 Body Mass Index 28.3 Const: General: cooperative and acute distress mild and respiratory Nutritional Appearance: thin and Edematous (Frail elderly woman) Orientation/consciousness: patient oriented x3 HENMT: Head: Yes normocephalic and Yes atraumatic Neck: Neck: Yes trachea midline, Yes supple and Yes no JVD Chest: Chest palpation & inspection: abnormal inspection of the chest kyphotic and scoliotic Resp: Effort & Inspection: normal respiratory effort Auscultation: no crackles, no rales, no rhonchi and diminished lung sounds Cardio: Jugular venous distension: no JVD Rate: regular rate Rhythm: regular rhythm Heart sounds: S1 normal heart sound present and S2 normal heart sound present GI: Auscultation: normal bowel sounds Skin: General skin exam: no rashes or lesions noted and ecchymosis Neuro: General: patient oriented x3 and no focal motor deficits Extrem: General: Yes no clubbing, cyanosis or edema and Yes other (Significant arthritic changes in the lower limbs) Results Labs and Meds Result diagrams: 11/20/20 06:44 11/20/20 06:44 Lab results: Laboratory Results - last 24 hr 11/19/20 11/19/20 11/19/20 11:49 11:49 11:49 WBC 9.7 RBC 3.37 L Hgb 10.1 L Hct 34.6 L MCV 102.7 H MCH 30.0 MCHC 29.2 L RDW 13.1 Plt Count 201 MPV 9.5 Immature Gran % (Auto) 0.3 Neut % (Auto) 72.1 Lymph % (Auto) 17.2 L [place] % (Auto) 9.3 Eos % (Auto) 0.8 Baso % (Auto) 0.3 Lymph # (Auto) 1.7 [place] # (Auto) 0.9 Eos # (Auto) 0.1 Baso # (Auto) 0.0 Abs Immat Gran (auto) 0.03 Absolute Neuts (auto) 7.0 Absolute Nucleated RBC 0.000 Nucleated RBC % (auto) 0.0 Smear Tech's Comments D-Dimer Hold Blue Top VBG pH VBG pCO2 VBG pO2 VBG HCO3 VBG O2 Saturation VBG Base Excess Sodium 144 Potassium 4.6 Chloride 94 L Carbon Dioxide 41 H* D Anion Gap 14 BUN 16 Creatinine 0.55 Estim Creat Clear Calc 66.0 Estimated GFR > 60 Random Glucose 112 Calcium 9.0 D Phosphorus Magnesium Total Creatine Kinase Troponin I High Sens 69.7 H* D B-Natriuretic Peptide 552 H Urine Color Urine Appearance Urine pH Ur Specific [place] Urine Protein Urine Glucose (UA) Urine Ketones Urine Blood Urine Nitrite Ur Leukocyte Esterase Urine RBC Urine WBC Ur Squamous Epith Cells Ur Renal Epithelial Cell Urine Bacteria Urine Mucus COVID-19 ([facility]TER) COVID-19 Clin Com 11/19/20 11/19/20 11/19/20 11:54 12:35 14:46 WBC RBC Hgb Hct MCV MCH MCHC RDW Plt Count MPV Immature Gran % (Auto) Neut % (Auto) Lymph % (Auto) [place] % (Auto) Eos % (Auto) Baso % (Auto) Lymph # (Auto) [place] # (Auto) Eos # (Auto) Baso # (Auto) Abs Immat Gran (auto) Absolute Neuts (auto) Absolute Nucleated RBC Nucleated RBC % (auto) Smear Tech's Comments D-Dimer 297 Hold Blue Top SEE NOTE VBG pH 7.56 H VBG pCO2 63 VBG pO2 206 VBG HCO3 57 H VBG O2 Saturation 100.0 VBG Base Excess 30.6 Sodium Potassium Chloride Carbon Dioxide Anion Gap BUN Creatinine Estim Creat Clear Calc Estimated GFR Random Glucose Calcium Phosphorus Magnesium Total Creatine Kinase Troponin I High Sens B-Natriuretic Peptide Urine Color YELLOW Urine Appearance HAZY Urine pH 6.5 Ur Specific [place] 1.020 Urine Protein NEG Urine Glucose (UA) NEG Urine Ketones NEG Urine Blood TRACE Urine Nitrite NEG Ur Leukocyte Esterase TRACE H Urine RBC 10-14 H Urine WBC 1-4 Ur Squamous Epith Cells TRACE Ur Renal Epithelial Cell TRACE Urine Bacteria NONE Urine Mucus 2+ COVID-19 (WALTER) COVID-19 [employer] 11/19/20 11/19/20 11/19/20 14:46 14:46 18:15 WBC RBC Hgb Hct MCV MCH MCHC RDW Plt Count MPV Immature Gran % (Auto) Neut % (Auto) Lymph % (Auto) [place] % (Auto) Eos % (Auto) Baso % (Auto) Lymph # (Auto) [place] # (Auto) Eos # (Auto) Baso # (Auto) Abs Immat Gran (auto) Absolute Neuts (auto) Absolute Nucleated RBC Nucleated RBC % (auto) Smear Tech's Comments D-Dimer Hold Blue Top VBG pH VBG pCO2 VBG pO2 VBG HCO3 VBG O2 Saturation VBG Base Excess Sodium 147 H Potassium 3.5 D Chloride 88 L Carbon Dioxide 42 H* Anion Gap 21 H BUN 15 Creatinine 0.59 Estim Creat Clear Calc 61.5 Estimated GFR > 60 Random Glucose 102 Calcium 9.8 D Phosphorus 2.3 L Magnesium 1.8 Total Creatine Kinase 47 Troponin I High Sens 75.3 H* B-Natriuretic Peptide Urine Color Urine Appearance Urine pH Ur Specific [place] Urine Protein Urine Glucose (UA) Urine Ketones Urine Blood Urine Nitrite Ur Leukocyte Esterase Urine RBC Urine WBC Ur Squamous Epith Cells Ur Renal Epithelial Cell Urine Bacteria Urine Mucus COVID-19 (WALTER) COVID-19 [employer] 11/19/20 11/19/20 11/20/20 18:15 20:41 06:44 WBC 9.0 RBC 4.06 L D Hgb 12.0 Hct 39.8 MCV 98.0 MCH 29.6 MCHC 30.2 L RDW 12.8 Plt Count 250 MPV 9.9 Immature Gran % (Auto) 0.4 Neut % (Auto) 95.2 H Lymph % (Auto) 3.7 L [place] % (Auto) 0.6 L Eos % (Auto) 0.0 Baso % (Auto) 0.1 Lymph # (Auto) 0.3 L [place] # (Auto) 0.1 Eos # (Auto) 0.0 Baso # (Auto) 0.0 Abs Immat Gran (auto) 0.04 H Absolute Neuts (auto) 8.6 H Absolute Nucleated RBC 0.000 Nucleated RBC % (auto) 0.0 Smear Tech's Comments VERIFIED D-Dimer Hold Blue Top VBG pH VBG pCO2 VBG pO2 VBG HCO3 VBG O2 Saturation VBG Base Excess Sodium 145 Potassium 3.5 Chloride 86 L Carbon Dioxide 41 H* Anion Gap 22 H BUN 15 Creatinine 0.61 Estim Creat Clear Calc 59.6 Estimated GFR > 60 Random Glucose 104 Calcium 9.6 Phosphorus Magnesium Total Creatine Kinase Troponin I High Sens B-Natriuretic Peptide 608 H Urine Color Urine Appearance Urine pH Ur Specific [place] Urine Protein Urine Glucose (UA) Urine Ketones Urine Blood Urine Nitrite Ur Leukocyte Esterase Urine RBC Urine WBC Ur Squamous Epith Cells Ur Renal Epithelial Cell Urine Bacteria Urine Mucus COVID-19 (WALTER) COVID-[employer] 11/20/20 11/20/20 06:44 Unknown WBC RBC Hgb Hct MCV MCH MCHC RDW Plt Count MPV Immature Gran % (Auto) Neut % (Auto) Lymph % (Auto) [place] % (Auto) Eos % (Auto) Baso % (Auto) Lymph # (Auto) [place] # (Auto) Eos # (Auto) Baso # (Auto) Abs Immat Gran (auto) Absolute Neuts (auto) Absolute Nucleated RBC Nucleated RBC % (auto) Smear Tech's Comments D-Dimer Hold Blue Top VBG pH VBG pCO2 VBG pO2 VBG HCO3 VBG O2 Saturation VBG Base Excess Sodium 143 Potassium 3.4 Chloride 92 L Carbon Dioxide 39 H Anion Gap 15 BUN 19 H Creatinine 0.67 Estim Creat Clear Calc 54.2 Estimated GFR > 60 Random Glucose 148 H D Calcium 9.5 Phosphorus Magnesium Total Creatine Kinase Troponin I High Sens B-Natriuretic Peptide Urine Color Urine Appearance Urine pH Ur Specific [place] Urine Protein Urine Glucose (UA) Urine Ketones Urine Blood Urine Nitrite Ur Leukocyte Esterase Urine RBC Urine WBC Ur Squamous Epith Cells Ur Renal Epithelial Cell Urine Bacteria Urine Mucus COVID-19 ([facility]ALTER) Negative COVID-[employer] Com See Note Imaging Radiologist's impression: Impressions Chest CT 11/19/20 11:06 IMPRESSION: 1. The index spiculated mass involving the posterior segment of the left upper lobe of the lung abutting the left major fissure is reidentified, currently measures 2.5 cm at its maximum dimension, shows interval increase from prior measurement of 1.8 cm at its maximum dimension since the prior study dated 08/22/2020, highly suspicious for malignancy. Note is also made of interval development of a thin walled cavitary lesion at left lung apex measuring 1.8 cm, new since prior study. 2. No other significant interval change. Assessment and Plan (1) Paroxysmal atrial fibrillation: Status: Acute Patient developed acute atrial fibrillation with rapid ventricular response, paroxysmal in nature. Converted spontaneously to sinus rhythm. Given her significant COPD with respiratory failure would switch her from metoprolol to Cardizem therapy to avoid further worsening of her bronchospasm. Cardizem 30 mg q.6 hours. She has no prior history of atrial fibrillation as reported chart. Does have history of SVT in the past. Will also start on oral anticoagulation given her high risk, currently not at fall risk. Eliquis 2.5 mg b.i.d. would be an appropriate regimen for her given her age and weight. (2) Elevated brain natriuretic peptide (BNP) level: Status: Acute Elevated BNP in this elderly woman without any obvious signs of congestive heart failure. She does not appear to be fluid overloaded and does not have any significant clinical rales at this time. Would suggest to hold off on Lasix therapy which might be causing significant metabolic alkalosis. Nephrology is on case. Agree with Diamox for current time. Obtain echocardiogram to assess for LV systolic and diastolic function most likely cause for elevated BNP is RV dilatation and pulmonary hypertension. (3) Chronic respiratory failure with hypoxia: Status: Acute Significant advanced chronic respiratory failure with hypoxia secondary to advancing COPD. She is also significantly frail. Continue oxygen supplementation. Continue supportive care. Consider pulmonary consultation. Will follow the patient for echocardiogram. Procedures Date of Service Date of Service: 11/20/20
[2020-11-20] MEDS: Metoprolol Succinate ER 50 MG TAB.ER.24H PO (10:51)
[2020-11-20] MEDS: Cholecalciferol (Vitamin D3) 25 MCG TABLET PO (10:51)
[2020-11-20] MEDS: DULoxetine HCl 30 MG CAPSULE.DR PO (10:52)
[2020-11-20] MEDS: clonazePAM 1 MG TABLET PO ×2 (10:52→21:38)
--- NOTE | 2020-11-20 10:59 | P.CONNP_ITS ---
History of Present Illness Reason for Consult Consult date: 11/20/20 Requesting physician: Troy Glasgow Chief Complaint Chief complaint: Feeling confused History of Present Illness Narrative: Niharika is an 80 yo woman with multiple medical problems, severe oxygen dependent COPD whom we are asked to see for severe metabolic alkalosis with pH 7.56. She presented due to AMS, feeling unwell, tingling in feet and wang ds. She has severe oxygen dep COPD and chronic hypercarbia, resp acidosis. She has been using furosemide for LE edema. she denies vomiting. She is on no bicarbonate. She has not been taking tums. She had zoster 2 months ago and has been taking gabapentin. Her says she is confused. Her initial pH was 7.56 with pC02 of 63. She appears comfortable with her breathing presently. Review of Systems Constitutional: Denies chills, Reports fatigue, Denies fever(s) and Denies weight gain Cardiovascular: Denies chest pain, Reports pedal edema, Denies lightheadedness, Denies Loss of Consciousness, Denies palpitations, Reports dyspnea on exertion and Denies orthopnea Respiratory: Denies cough and Reports dyspnea on exertion Gastrointestinal: Reports no additional gastrointestinal complaints Musculoskeletal: Reports no additional musculoskeletal complaints Reports radicular pain and Reports other Psychiatric: Reports anxiety Endocrine: Reports no additional endocrine complaints, Reports fatigue and Denies palpitations Hematologic/Lymphatic: Reports no additional hematologic/lymphatic complaints [facility] Past Medical History Medical History (Updated 11/20/20 @ 10:41 by Cameron Mijares MD) Chronic respiratory failure with hypoxia COPD (chronic obstructive pulmonary disease) COPD (chronic obstructive pulmonary disease) Generalized anxiety disorder Herpes zoster Lung mass Paroxysmal atrial fibrillation Post herpetic neuralgia Respiratory failure with hypoxia and hypercapnia SVT (supraventricular tachycardia) Family History Family History Mother No problems noted. Father No problems noted. Surgical History Surgical History H/O cataract extraction H/O right knee surgery History of bunionectomy Hx of cholecystectomy Social History Social History Household Members: Spouse Housing: House Do you presently have visiting nurse or other home services: No Alcohol intake: never Patient Tobacco Use Status: Never used Tobacco Use of substances other than those prescribed or required for medical reasons: No Advance Directives: No Advance Directives Information Provided: Yes Meds Allergies Allergy/AdvReac Type Severity Reaction Status Date / Time Penicillins Allergy Mild ANAPHYLAXIS Verified 11/19/20 07:12 levofloxacin [Levaquin] Allergy Unknown Unknown Verified 11/19/20 07:12 morphine [Morphine] Allergy Unknown SWELLING Verified 11/19/20 07:12 Active Medications: Current Medications Generic Name Dose Route Start Last Admin Trade Name Freq PRN Reason Stop Dose Admin Acetaminophen 650 mg 11/19/20 20:00 Acetaminophen 325 Mg Tablet PO Q6H PRN Pain, Mild (Pain Scale 1-3) Acetazolamide 500 mg 11/19/20 21:00 11/20/20 09:17 Acetazolamide Sodium 500 Mg Vial IVPUSH Not Given BID LUCY Albuterol/Ipratropium 3 ml 11/19/20 20:00 11/20/20 07:51 Albuterol/Iprat 2.5/0.5mg 3 Ml Ampul.Neb INHALE 3 ml RQ4H WHILE AWAKE LUCY Administration Albuterol/Ipratropium 3 ml 11/20/20 00:27 Albuterol/Iprat 2.5/0.5mg 3 Ml Ampul.Neb INHALE RQ6H PRN Shortness of Breath/Wheezing Albuterol/Ipratropium 3 ml 11/20/20 00:28 11/20/20 01:31 Albuterol/Iprat 2.5/0.5mg 3 Ml Ampul.Neb INHALE 3 ml Q4H PRN Administration Shortness Of Breath Or Wheezing Apixaban 5 mg 11/20/20 10:45 Apixaban 5 Mg Tablet PO BID LUCY Azithromycin 500 mg 11/19/20 22:00 11/19/20 21:10 Azithromycin 500 Mg Tablet PO 500 mg Q24H LUCY Administration Clonazepam 1 mg 11/20/20 09:00 11/20/20 10:52 Clonazepam 1 Mg Tablet PO 1 mg BID LUCY Administration Diltiazem HCl 30 mg 11/20/20 10:45 Diltiazem Hcl 30 Mg Tablet PO QID [facility] Protocol Duloxetine HCl 30 mg 11/20/20 09:00 11/20/20 10:52 Duloxetine Hcl 30 Mg Capsule.Dr PO 30 mg DAILY LUCY Administration Enoxaparin Sodium 40 mg 11/19/20 22:00 11/19/20 21:12 Enoxaparin Sodium 40 Mg/0.4 Ml Syringe SUBCUT 40 mg Q24H LUCY Administration Methylprednisolone Sodium Succinate 40 mg 11/19/20 21:00 11/20/20 10:50 Methylprednisolone Sod Succ 40 Mg/Ml Vial IVPUSH 40 mg Q6H LUCY Administration Metoprolol Succinate 50 mg 11/20/20 09:00 11/20/20 10:51 Metoprolol Succinate Er 50 Mg Tab.Er.24h PO 50 mg DAILY [facility] Administration Protocol Omeprazole 20 mg 11/20/20 06:30 Omeprazole 20 Mg Capsule.Dr PO DAILY@629 [facility] Oxycodone HCl 5 mg 11/20/20 00:30 11/20/20 01:30 Oxycodone Hcl Immed Release 5 Mg Tablet PO 5 mg Q8H [facility] Administration Pharmacy Consult 1 each 11/19/20 17:07 Consult Rx Perform Med Rec MISCELLANE ONCE PRN Consult order Sodium Chloride 3 ml 11/20/20 00:00 11/20/20 10:53 0.9 % Sodium Chloride Flush 3 Ml Syringe IVFLUSH 3 ml QSHIFT [facility] Administration Tramadol HCl 50 mg 11/20/20 00:28 Tramadol Hcl 50 Mg Tablet PO BID PRN pain Valacyclovir HCl 1,000 mg 11/20/20 09:00 11/20/20 10:51 Valacycyclovir Hcl 1,000 Mg Tablet PO 1,000 mg TID [facility] Administration Vitamin D 25 mcg 11/20/20 09:00 11/20/20 10:51 Cholecalciferol (Vitamin D3) 25 Mcg Tablet PO 25 mcg DAILY [facility] Administration Home Medications Medication Instructions Recorded Confirmed Last Taken Type calcium carbonate 600 mg calcium 600 mg PO DAILY 03/28/20 11/19/20 11/18/20 History (1,500 mg) tablet furosemide 40 mg tablet 40 mg PO Q OTHER DAY 07/04/20 11/19/20 11/18/20 History cholecalciferol (vitamin D3) 25 mcg PO DAILY 08/04/20 11/19/20 11/18/20 History ipratropium-albuterol 3 ml INHALATION Q4H PRN 08/04/20 11/19/20 11/18/20 History vitamin B complex 1 cap PO DAILY 08/04/20 11/19/20 11/18/20 History Physical Exam Vital Signs: Last Vital Signs Temp 98.1 F 11/20/20 08:00 Pulse 88 11/20/20 10:51 Resp 20 11/20/20 10:00 BP 158/91 H 11/20/20 10:51 Pulse Ox 95 11/20/20 10:00 Oxygen Flow Rate 3 11/19/20 10:49 Body Mass Index 28.3 Const General: cooperative, healthy appearing, comfortable, no acute distress, well developed and acute distress mild and respiratory Nutritional Appearance: thin and Edematous (Frail elderly woman) Orientation/consciousness: patient oriented x3 Limitations: no limitations HENMT Head: Yes normal to inspection, Yes normocephalic and Yes atraumatic Eyes General: appearance normal, both eyes and all related structures Neck Neck: Yes normal visual inspection, Yes full ROM, Yes trachea midline, Yes supple and Yes no JVD Chest Chest palpation & inspection: abnormal inspection of the chest kyphotic and scoliotic Resp Effort & Inspection: normal respiratory effort and able to speak in complete sentences Auscultation: no crackles, no rales, no rhonchi, wheezes expiratory wheezes and throughout and diminished lung sounds bilateral throughout Cardio Jugular venous distension: no JVD Rate: regular rate Rhythm: regular rhythm Heart sounds: S1 normal heart sound present, S2 normal heart sound present and normal S1 and S2 GI Inspection: Yes normal to inspection Auscultation: normal bowel sounds Skin General skin exam: no rashes or lesions noted and ecchymosis Neuro General: patient oriented x3 and no focal motor deficits Extrem General: Yes normal to inspection, Yes no clubbing, cyanosis or edema, Yes pedal edema (Left-side 2+ pitting edema right side slight edema, nonpitting.) and Yes other (Significant arthritic changes in the lower limbs) Results Lab Results Result Diagrams: 11/20/20 06:44 11/20/20 06:44 Lab results: Chemistry 11/19/20 11/19/20 11/19/20 11:49 18:15 20:41 Sodium 144 147 H 145 Potassium 4.6 3.5 D 3.5 Carbon Dioxide 41 H* D 42 H* 41 H* BUN 16 15 15 Creatinine 0.55 0.59 0.61 Calcium 9.0 D 9.8 D 9.6 Phosphorus 2.3 L 11/20/20 06:44 Sodium 143 Potassium 3.4 Carbon Dioxide 39 H BUN 19 H Creatinine 0.67 Calcium 9.5 Phosphorus Hematology 11/19/20 11/20/20 11:49 06:44 WBC 9.7 9.0 Hgb 10.1 L 12.0 Plt Count 201 250 Urinalysis 11/19/20 12:35 Urine Color YELLOW Urine Appearance HAZY Urine pH 6.5 Ur Specific [place] 1.020 Urine Protein NEG Urine Glucose (UA) NEG Urine Ketones NEG Urine Blood TRACE Urine Nitrite NEG Ur Leukocyte Esterase TRACE H Urine RBC 10-14 H Urine WBC 1-4 Ur Squamous Epith Cells TRACE Assessment and Plan (1) Metabolic alkalosis: Status: Acute The patient has chronic respiratory acidosis with a superimposed metabolic alkalosis. The alkalosis is due to excessive use of furosemide. She does not have a hx of CHF and actually appears clinically hypovolemic presently. She has been given acetazolamide. I recommend, since this is a chloride sensitive alkalosis and she is not in CHF, that we start normal saline at 75 cc/hr and hold loop diuretics and stop acetazolamide. thank you for asking us tohelp in her care (2) UTI (urinary tract infection): Qualifiers: Hematuria presence: with hematuria Urinary tract infection type: acute cystitis Qualified Code(s): N30.01 - Acute cystitis with hematuria Status: Acute Procedures Date of Service Date of Service: 11/20/20
[2020-11-20] MEDS: Apixaban 5 MG TABLET PO ×2 (11:01→21:38)
[2020-11-20] MEDS: dilTIAZem HCL 30 MG TABLET PO ×4 (11:01→21:38)
[2020-11-20 11:29] LABS: Troponin-I High Sensitivity 73.4 ng/L (<3.5-17.0)
[2020-11-20] MEDS: Omeprazole 20 MG CAPSULE.DR PO (11:39)
--- NOTE | 2020-11-20 12:41 | P.PNIM_ITS ---
Subjective Subjective Date of Service: 11/20/20 <Gabriela Amanda NP - Last Filed: 11/20/20 12:58> 11/20/20 <Fredi Hernandez MD - Last Filed: 11/20/20 13:53> Interval History: Follow up SOB breathing is better Layin in bed <Gabriela Amanda NP - Last Filed: 11/20/20 12:58> Physical Exam Vital Signs: Vital Signs: Last Vital Signs Temp 98.1 F 11/20/20 08:00 Pulse 88 11/20/20 12:35 Resp 20 11/20/20 10:00 BP 133/83 11/20/20 12:35 Pulse Ox 95 11/20/20 10:00 Oxygen Flow Rate 3 11/19/20 10:49 Body Mass Index 28.3 <Gabriela Amanda NP - Last Filed: 11/20/20 12:58> Appearing in no acute distress, thin and frail appearing lung sounds are clear to auscultation heart regular rate rhythm, clear S1, S2 positive bowel sounds, abdomen is soft, nontender neuro patient is alert x3, no focal deficits <Gabriela Amanda NP - Last Filed: 11/20/20 12:58> Objective Data Current Medications Generic Name Dose Route Start Last Admin Trade Name Freq PRN Reason Stop Dose Admin Acetaminophen 650 mg 11/19/20 20:00 Acetaminophen 325 Mg Tablet PO Q6H PRN Pain, Mild (Pain Scale 1-3) Acetazolamide 500 mg 11/19/20 21:00 11/20/20 09:17 Acetazolamide Sodium 500 Mg Vial IVPUSH Not Given BID LUCY Albuterol/Ipratropium 3 ml 11/19/20 20:00 11/20/20 11:38 Albuterol/Iprat 2.5/0.5mg 3 Ml Ampul.Neb INHALE 3 ml RQ4H WHILE AWAKE LUCY Administration Albuterol/Ipratropium 3 ml 11/20/20 00:27 Albuterol/Iprat 2.5/0.5mg 3 Ml Ampul.Neb INHALE RQ6H PRN Shortness of Breath/Wheezing Albuterol/Ipratropium 3 ml 11/20/20 00:28 11/20/20 01:31 Albuterol/Iprat 2.5/0.5mg 3 Ml Ampul.Neb INHALE 3 ml Q4H PRN Administration Shortness Of Breath Or Wheezing Apixaban 5 mg 11/20/20 10:45 11/20/20 11:01 Apixaban 5 Mg Tablet PO 5 mg BID LUCY Administration Azithromycin 500 mg 11/19/20 22:00 11/19/20 21:10 Azithromycin 500 Mg Tablet PO 500 mg Q24H LUCY Administration Clonazepam 1 mg 11/20/20 09:00 11/20/20 10:52 Clonazepam 1 Mg Tablet PO 1 mg BID LUCY Administration Diltiazem HCl 30 mg 11/20/20 10:45 11/20/20 12:35 Diltiazem Hcl 30 Mg Tablet PO 30 mg QID LUCY Administration Protocol Duloxetine HCl 30 mg 11/20/20 09:00 11/20/20 10:52 Duloxetine Hcl 30 Mg Capsule. PO 30 mg DAILY LUCY Administration Enoxaparin Sodium 40 mg 11/19/20 22:00 11/19/20 21:12 Enoxaparin Sodium 40 Mg/0.4 Ml Syringe SUBCUT 40 mg Q24H LUCY Administration Methylprednisolone Sodium Succinate 40 mg 11/19/20 21:00 11/20/20 10:50 Methylprednisolone Sod Succ 40 Mg/Ml Vial IVPUSH 40 mg Q6H LUCY Administration Metoprolol Succinate 50 mg 11/20/20 09:00 11/20/20 10:51 Metoprolol Succinate Er 50 Mg Tab.Er.24h PO 50 mg DAILY LUCY Administration Protocol Omeprazole 20 mg 11/20/20 11:15 11/20/20 11:39 Omeprazole 20 Mg Capsule. PO 20 mg DAILY@0630 LUCY Administration Oxycodone HCl 5 mg 11/20/20 00:30 11/20/20 11:00 Oxycodone Hcl Immed Release 5 Mg Tablet PO 5 mg Q8H LUCY Administration Pharmacy Consult 1 each 11/19/20 17:07 Consult Rx Perform Med Rec MISCELLANE ONCE PRN Consult order Sodium Chloride 3 ml 11/20/20 00:00 11/20/20 10:53 0.9 % Sodium Chloride Flush 3 Ml Syringe IVFLUSH 3 ml QSHIFT LUCY Administration Tramadol HCl 50 mg 11/20/20 00:28 Tramadol Hcl 50 Mg Tablet PO BID PRN pain Valacyclovir HCl 1,000 mg 11/20/20 09:00 11/20/20 10:51 Valacycyclovir Hcl 1,000 Mg Tablet PO 1,000 mg TID LUCY Administration Vitamin D 25 mcg 11/20/20 09:00 11/20/20 10:51 Cholecalciferol (Vitamin D3) 25 Mcg Tablet PO 25 mcg DAILY LUCY Administration <Gabriela Amanda NP - Last Filed: 11/20/20 12:58> Labs CBC & Chem 7: : 11/20/20 06:44 11/20/20 06:44 <Gabriela Amanda NP - Last Filed: 11/20/20 12:58> Microbiology Microbiology Results: Microbiology 11/19/20 Unknown Urine clean catch - Clean Catch Midstream Urine Culture - Final <Gabriela Amanad NP - Last Filed: 11/20/20 12:58> Assessment and Plan (1) Paroxysmal atrial fibrillation: Status: Acute <Gabriela Amanda NP - Last Filed: 11/20/20 12:58> Assessment and Plan: 80-year-old female with a past medical history of COPD, chronic respiratory failure on home oxygen, had history of started, post herpetic neurology a presented to the hospital with a chief complaint of generalized weakness and shortness of breath. Noted to have diminished lung sounds. Acute on chronic respiratory failure secondary to COPD exacerbation NO consolidation -Solu-Medrol and DuoNebs. -Supplemental oxygen -Azithromycin Afib with RVR. Patient heart rate went up to 190 subsequently improved on its own without intervention. -cardizem Q6hs -echocardiogram. -Cardiology following ? CHF. elevated BNP, no overt heart failure noted nephrology following - continue Diamox - echo Cavitary lung lesion and cavitary lesion. Chronic but increasing in size. 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 Metabolic alkalosis. Likely contraction. Will keep the patient on gentle IV fluids. ER team spoke to nephrology-recommended Diamox. Will await further recommendations from Nephrology in the morning in regards continue [place] of Diamox. DVT prophylaxis with Eliquis Full code Attending: Dr. Hernandez <Gabriela Amanda NP - Last Filed: 11/20/20 12:58> I saw patient and discuss with CUSTOMS AGENT, and agree with above, except if stated otherwise--see separte note for detail <Fredi Hernandez MD - Last Filed: 11/20/20 13:53>
--- NOTE | 2020-11-20 13:14 | MHC.CM.PN ---
Met with patient and [facility] in regards to discharge planning. Patient lives with spouse, ambulates with a walker, has VNA services through [facility] and oxygen through [employer]. PCP verified. Copy of HCP verified to be on file. IMM explained and signed. Patient received 2nd Moderna here at [facility]. [facility] is not sure when but knows it was more than a month ago. [facility] will transport patient when medically stable. [facility] feels patient will be able to safely return home when medically stable. Continue to monitor for d/c needs.
--- NOTE | 2020-11-20 14:09 | PC.NURSE ---
PT DRANK 240ML OF HER SOUP AND SIPS OF MILK FOR LUNCH. VOID 1000ML YELLOW URINE WITH PYRIX/CANNISTER.
--- NOTE | 2020-11-20 14:51 | PC.NURSE ---
nurse to nurse given to jeff, pt/family aware of plan of care for admission to hosp.
[2020-11-20] MEDS: acetaZOLAMIDE sodium 500 MG VIAL IVPUSH (21:37)
[2020-11-20] MEDS: Azithromycin 500 MG TABLET PO (21:38)
[2020-11-20] MEDS: Enoxaparin Sodium 40 MG/0.4 ML SYRINGE SUBCUT (21:38)
[2020-11-21] VITALS (10 sets, daily range): BP systolic 126–156; BP diastolic 57–71; PULSE 70–90; RESP 17–20; TEMP 36.3–37.1; O2SAT 92–97; BMI 21.4
[2020-11-21] MEDS: methylPREDNISolone Sod Succ 40 MG/ML VIAL IVPUSH ×4 (03:15→20:47)
[2020-11-21 07:13] LABS: Hematocrit 37.4 % (37-47); Hemoglobin 11.5 g/dl (12.0-16.0); Mean Corpuscular HGB Conc 30.7 g/dl (31.0-35.0); Mean Corpuscular Hemoglobin 29.6 pg (27.0-33.0); Mean Corpuscular Volume 96.4 fL (80-98); Platelet Count 255 X10*3/uL (160-400); Red Blood Count 3.88 X10*6/uL (4.20-5.50); Red Cell Distribution Width 12.8 % (11.0-16.0); White Blood Count 9.7 X10*3/uL (4.8-10.8)
[2020-11-21 07:19] LABS: B Type Natriuretic Peptide 186 pg/mL (<100)
--- NOTE | 2020-11-21 07:30 | CA_ITS ---
Transthoracic Echocardiogram Patient (Last, First, Middle): Niharika Montelongo, Gender: Female Date of : 1940 Age: 80 Procedure Date: 11/21/2020 Procedure Type: Transthoracic Echocardiogram Location: [facility] [place] Height: 149.86 cm Weight: 48.08 kg BSA: 1.41 m2 Heart Rate: bpm BP: 126 / 57 mmHg Retirement Specialist: Referring MD: Lele Silver MD Symptoms: dyspnea Study Quality: Fair ECG Rhythm: Sinus Conclusions: - The left ventricular systolic function is hyperdynamic. The visually estimated ejection fraction is >70%. - E/E prime ratio is >15, consistent with elevated filling pressures. Evidence suggests grade I (mild) diastolic dysfunction. - There is mild calcification of the aortic valve. - There is moderate mitral annular calcification. Findings Left Ventricle Normal left ventricular cavity size. There is normal left ventricular wall thickness. The left ventricular systolic function is hyperdynamic. The visually estimated ejection fraction is >70%. There is no evidence of regional wall motion abnormalities. E/E prime ratio is >15, consistent with elevated filling pressures. Evidence suggests grade I (mild) diastolic dysfunction. Right Ventricle Normal right ventricular cavity size and systolic function. Atria The left atrium is normal in size. The right atrium is normal in size. Aortic Valve There is mild calcification of the aortic valve. There is no aortic valve stenosis. There is no aortic valve regurgitation. Mitral Valve There is moderate mitral annular calcification. There is trace mitral valve regurgitation. There is no mitral valve stenosis. Pulmonic Valve The pulmonic valve was not well visualized. Tricuspid Valve Normal tricuspid valve structure. There is trace tricuspid valve regurgitation. The pulmonary artery systolic pressure is normal. Great Vessels The aortic annulus is normal in size. Venous The inferior vena cava is normal in size and collapses greater than 50% with inspiration. Pericardium/Pleural There is no evidence of pericardial effusion. Prior Study Comparison No significant change compared to prior study dated: 04/27/2014. Measurements 2D Linear Measurements IVSd: 0.83 0.6-0.9/0.6-1.0 cm LVIDd: 3.55 3.9-5.3/4.2-5.9 cm LVIDd Index: 2.52 2.4-3.2/2.2-3.1 cm/m2 LVIDs: 2.11 2.0-3.6 cm LVPWd: 0.93 0.7-1.1 cm Ao Root: 2.90 2.1-3.5 cm LA Diam: 2.70 2.7-3.8/3.0-4.0 cm LAIDs Index: 1.91 1.5-2.3 cm/m2 LV Mass: 109.71 67-162/88-224 g LV Mass Index: 77.81 43-95/49-115 g/m2 LVOT Diam: 2.10 3.0+(-)1.3 cm Mitral Valve MV VTI: 0.43 MV Pk Gonzalez: 1.41 MV Mn Gonzalez: 0.71 MV Pk Grad: 8.00 MV Mn Grad: 2.00 MV Pk E: 0.86 MV PK A: 1.40 MV Decel Time: 306.00 E/A: 0.60 E'Lateral: 5.87 E'Medial: 4.90 E/E' Med: 17.50 E/E' Lat: 14.60 PHT: 96.00 MVA PHT: 2.29 MVA Continuity: 2.56 Decel Childress: 2.98 Aortic Valve AoV Pk Gonzalez: 2.10 AoV Mn Gonzalez: 1.27 AoV VTI: 0.44 AoV Pk Grad: 18.00 Aov Mn Grad: 8.00 GIO Cont.VTI: 2.55 LVOT LVOT Pk Gonzalez: 1.17 LVOT Mn Gonzalez: 0.73 LVOT VTI: 0.32 LVOT Pk Grad: 5.00 LVOT Mn Grad: 3.00 LVOT Diam: 2.10 LVOT Area: 3.46 Diastolic Function MV Pk E: 0.86 MV Pk A: 1.40 E/A: 0.60 E'Medial: 4.90 E/E' Med: 17.50 E' Laterial: 5.87 E/E' Lat: 14.60 Tricuspid Valve TR Pk Gonzalez: 2.00 TR Pk Grad: 16.00 RA Press: 3.00 RVSP: 19.00 Great Vessels Aorta Ao Root-2D: 2.90 2.0-3.7 cm Pulmonary Valve PV Pk Gonzalez: 1.07 Peak PV Grad: 5.00 Updated in Other Vendor System with Status of Final Roger Gooden MD electronically signed on 11/21/2020 2:28:53 PM with status of Final
[2020-11-21 07:35] LABS: Anion Gap 15 (12-20); Blood Urea Nitrogen 27 mg/dL (9-16); Calcium 9.6 mg/dL (8.4-10.2); Carbon Dioxide 31 mmol/L (22-29); Chloride 97 mmol/L (96-108); Creatinine Clr Calc Pharmacy 46.3; Estimated Glomerular Filt Rate > 60; Glucose Random 144 mg/dL (60-115); Potassium 3.2 mmol/L (3.3-5.1); Sodium 140 mmol/L (135-145)
[2020-11-21] MEDS: Albuterol/Iprat 2.5/0.5MG 3 ML AMPUL.NEB INHALE ×3 (07:47→19:48)
--- NOTE | 2020-11-21 07:48 | PM.HEMONCCN ---
Subjective - Subjective Chief complaint: Consult for spiculated lung mass. Patient: new to practice Consult date: 11/21/20 Requesting Physician: Marci. Primary Care Provider: Rolo Ford MD Medical Summary: DIAGNOSIS: LUNG MASS. HPI - Consult Narrative Reason for consult: Consult for: Spiculated lung mass. Narrative: Niharika Miller is a pleasant 80 year old lady, presented to the hospital with a chief complaint of generalized weakness. She has been having generalized weakness and fatigue over the past few days. She walks with the help of a walker. Denies any chest pain or palpitations. Denies any numbness tingling. She has not be eating well over the past few days. Patient denies any urinary symptoms. She has been taking Lasix at home. Review of all other systems is negative except mentioned above ER course: She was noted to be short of breath, diminished breath sounds; Had mildly elevated proBNP. troponins are indeterminate. EKG nonischemic. She had elevated bicarb level started on Diamox. CT chest showed: Spiculated mass in the lung; which is increasing in size Past medical history of: COPD, chronic respiratory failure on home oxygen, History of stroke, Post herpetic neurology, Anxiety, depression. ROS: Review of Systems - Constitutional Reports system reviewed and no additional complaints, except as documented, Reports lack of energy, Reports malaise - Eyes Reports system reviewed and no additional complaints, except as documented - ENT Reports system reviewed and no additional complaints, except as documented - Cardiovascular Reports system reviewed and no additional complaints, except as documented - Respiratory Reports no additional respiratory complaints - Gastrointestinal Reports system reviewed and no additional complaints, except as documented - Genitourinary Reports no additional female genitourinary complaints - Musculoskeletal Reports system reviewed and no additional complaints, except as documented - Integumentary/Breasts Skin/Breast: Reports no additional skin complaints - Neurologic Reports radicular pain, Reports other - Psychiatric Reports system reviewed and no additional complaints, except as documented - Endocrine Reports no additional endocrine complaints - Hematologic/Lymphatic Reports system reviewed and no additional complaints, except as documented - Allergic/Immunologic Reports system reviewed and no additional complaints, except as documented Oncology Screenings - ECOG Performance Status ECOG Performance Status: 1 [facility] Medical History: Medical History (Last Updated 11/24/20 @ 11:07 by Triston Berry MD) Chronic respiratory failure with hypoxia COPD (chronic obstructive pulmonary disease) COPD (chronic obstructive pulmonary disease) Generalized anxiety disorder Herpes zoster Lung mass Paroxysmal atrial fibrillation Post herpetic neuralgia Respiratory failure with hypoxia and hypercapnia SVT (supraventricular tachycardia) Functional capacity: uses cane/walker Patient : No Family History: Family History (Last Reviewed 11/20/20 @ 11:01 by Beth Penn MD) Mother No problems noted. Father No problems noted. Surgical History: Surgical History (Last Reviewed 11/20/20 @ 11:01 by Beth Penn MD) H/O cataract extraction H/O right knee surgery History of bunionectomy Hx of cholecystectomy Social History: Social History (Last Reviewed 11/20/20 @ 11:01 by Beth Penn MD) Living Situation History: Household Members: Spouse Housing: House Do you presently have visiting nurse or other home services: Yes Do you presently have visiting nurse or other home services comment: VNA and PT services Alcohol History: Alcohol intake: never Tobacco History: Patient Tobacco Use Status: Never used Tobacco Occupation Assessmet: service: No Current occupational status: retired Home Medications and Allergies Current Medications: Current Medications Generic Name Dose Route Start Last Admin Trade Name Freq PRN Reason Stop Dose Admin Acetaminophen 650 mg 11/19/20 20:00 Acetaminophen 325 Mg Tablet PO Q6H PRN Pain, Mild (Pain Scale 1-3) Acetazolamide 500 mg 11/19/20 21:00 11/20/20 21:37 Acetazolamide Sodium 500 Mg Vial IVPUSH 500 mg BID LUCY Administration Albuterol/Ipratropium 3 ml 11/19/20 20:00 11/20/20 20:12 Albuterol/Iprat 2.5/0.5mg 3 Ml Ampul.Neb INHALE 3 ml RQ4H WHILE AWAKE LUCY Administration Albuterol/Ipratropium 3 ml 11/20/20 00:27 Albuterol/Iprat 2.5/0.5mg 3 Ml Ampul.Neb INHALE RQ6H PRN Shortness of Breath/Wheezing Albuterol/Ipratropium 3 ml 11/20/20 00:28 11/20/20 01:31 Albuterol/Iprat 2.5/0.5mg 3 Ml Ampul.Neb INHALE 3 ml Q4H PRN Administration Shortness Of Breath Or Wheezing Apixaban 5 mg 11/20/20 10:45 11/20/20 21:38 Apixaban 5 Mg Tablet PO 5 mg BID LUCY Administration Azithromycin 500 mg 11/19/20 22:00 11/20/20 21:38 Azithromycin 500 Mg Tablet PO 500 mg Q24H LUCY Administration Clonazepam 1 mg 11/20/20 09:00 11/20/20 21:38 Clonazepam 1 Mg Tablet PO 1 mg BID LUCY Administration Diltiazem HCl 30 mg 11/20/20 10:45 11/20/20 21:38 Diltiazem Hcl 30 Mg Tablet PO 30 mg QID LUCY Administration Protocol Duloxetine HCl 30 mg 11/20/20 09:00 11/20/20 10:52 Duloxetine Hcl 30 Mg Capsule. PO 30 mg DAILY [facility] Administration Enoxaparin Sodium 40 mg 11/19/20 22:00 11/20/20 21:38 Enoxaparin Sodium 40 Mg/0.4 Ml Syringe SUBCUT 40 mg Q24H LUCY Administration Methylprednisolone Sodium Succinate 40 mg 11/19/20 21:00 11/21/20 03:15 Methylprednisolone Sod Succ 40 Mg/Ml Vial IVPUSH 40 mg Q6H LUCY Administration Omeprazole 20 mg 11/20/20 11:15 11/21/20 06:26 Omeprazole 20 Mg Capsule. PO Not Given DAILY@0630 [facility] Oxycodone HCl 5 mg 11/20/20 00:30 11/21/20 00:33 Oxycodone Hcl Immed Release 5 Mg Tablet PO Not Given Q8H [facility] Pharmacy Consult 1 each 11/19/20 17:07 Consult Rx Perform Med Rec MISCELLANE ONCE PRN Consult order Sodium Chloride 3 ml 11/20/20 00:00 11/20/20 21:39 0.9 % Sodium Chloride Flush 3 Ml Syringe IVFLUSH 3 ml QSHIFT [facility] Administration Tramadol HCl 50 mg 11/20/20 00:28 Tramadol Hcl 50 Mg Tablet PO BID PRN pain Valacyclovir HCl 1,000 mg 11/20/20 09:00 11/20/20 21:38 Valacycyclovir Hcl 1,000 Mg Tablet PO 1,000 mg TID [facility] Administration Vitamin D 25 mcg 11/20/20 09:00 11/20/20 10:51 Cholecalciferol (Vitamin D3) 25 Mcg Tablet PO 25 mcg DAILY LUCY Administration Home Medications Medication Instructions Recorded Confirmed Type calcium carbonate 600 mg calcium 600 mg PO DAILY 03/28/20 11/19/20 History (1,500 mg) tablet furosemide 40 mg tablet 40 mg PO Q OTHER DAY 07/04/20 11/19/20 History cholecalciferol (vitamin D3) 25 mcg PO DAILY 08/04/20 11/19/20 History vitamin B complex 1 cap PO DAILY 08/04/20 11/19/20 History Allergies Allergy/AdvReac Type Severity Reaction Status Date / Time Penicillins Allergy Mild ANAPHYLAXIS Verified 11/19/20 07:12 levofloxacin [Levaquin] Allergy Unknown Unknown Verified 11/19/20 07:12 morphine [Morphine] Allergy Unknown SWELLING Verified 11/19/20 07:12 Physical Exam Vital signs: Vital Signs Temp 97.7 F 11/21/20 07:18 Pulse 72 11/21/20 07:18 Resp 18 11/21/20 07:18 BP 156/71 H 11/21/20 07:18 Pulse Ox 97 11/21/20 07:18 Intake & Output 11/20/20 11/21/20 11/21/20 18:59 06:59 18:59 Intake Total 1240 / 1480 240 / 1480 Balance 1240 / 1480 240 / 1480 Intake: Intake, Oral Amount 240 / 480 240 / 480 Intake, IV Amount 1000 / 1000 0.9 % Sodium Chloride 1,000 ml 1000 / 1000 @ 100 mls/hr IVCONT .Q10H [facility] Rx#:[id number] Other: Breakfast % Eaten 25% Dinner % Eaten 100% Number of Incontinent Voids 2 Number of Unmeasured Voids 0 Urine Color Yellow Weight 48.3 kg Weight in Grams 47201 Weight 48.3 kg - Constitutional Present: moderate distress - Routine HEENT Exam Head: Present: normal inspection ENT: Present: normal exam - Routine Neck Exam Present: supple. Absent: JVD - Routine Respiratory Exam Present: decreased breath sounds - Routine Cardiovascular Exam Cardiovascular: Present: RRR, S1, S2 - Routine Abdominal Exam Present: normal bowel sounds, nontender - Routine Rectal Exam Patient deferred: digital exam - Routine Extremities Exam Absent: calf tenderness - Routine Back/Spine/Pelvis Exam Pelvis: Absent: coccyx tenderness - Routine Skin Exam Absent: wounds - Routine Neurological Exam Present: alert, oriented X3 - Detailed Neurological Exam: Coma Scale Eye Opening: Spontaneous (4) Verbal Response: Oriented (5) Motor Response: Obeys commands (6) [place] Coma Scale Total: 15 - Routine Psychiatric Exam Present: anxious Hem/Onc Consult Result - Labs CBC & Chem 7: 11/21/20 06:10 11/21/20 06:10 Labs: Short CBC 11/21/20 Range/Units 06:10 WBC 9.7 (4.8-10.8) X10*3/uL Hgb 11.5 L (12.0-16.0) g/dl Hct 37.4 (37-47) % Plt Count 255 (160-400) X10*3/uL BMP 11/21/20 06:10 Sodium 140 Potassium 3.2 L Chloride 97 Carbon Dioxide 31 H BUN 27 H Creatinine 0.66 Calcium 9.6 Assessment and Plan (1) Mass of lung Status: Acute (2) Lung mass Problem details: A ROUNDED DENSITY IS NOTED IN LT.UPPER LOBE 1.3X1.8 CMS . NOW GROWN TO 2.5 BY 1.8 CM , SPICULATED. ANOTHER PULMONARY NODULE WITH WHAT A P IS TO BE CAVITATION IS SEEN IN THE APEX OF LEFT LUNG. THESE DENSITIES ARE MOST LIKELY NEOPLASTIC. DISCUSSED WITH THE PATIENT, AND SHE IS NOT AGREEABLE TO HAVE ANY FURTHER WORKUP OR TREATMENT FOR THIS. I CONCUR WITH HER DECISION BECAUSE SHE IS A VERY HIGH RISK FOR ANY PERCUTANEOUS NEEDLE BIOPSY ARE SURGERY. EVENTUALLY SHE WILL HAVE TO BE TREATED WITH COMFORT MEASURES AND MAY HAVE TO TRANSITION TO HOSPICE CARE . Status: Acute This is a pleasant 80-year-old lady with history of smoking and COPD. CT scan of the chest revealed: 1. The index spiculated mass involving the posterior segment of the left upper lobe of the lung abutting the left major fissure is reidentified, currently measures 2.5 cm at its maximum dimension, shows interval increase from prior measurement of 1.8 cm at its maximum dimension since the prior study dated 08/22/2020, highly suspicious for malignancy. Note is also made of interval development of a thin walled cavitary lesion at left lung apex measuring 1.8 cm, new since prior study. 2. No other significant interval change. She was admitted here back in July for similar complaints. The lung mass was detected at that time. Further workup was recommended however the patient declined. She did not wish to pursue any further evaluation. PLAN: I readdress the issue with her again. Again she declined proceeding with any further evaluation. She said she and her had had several discussions and that is their final decision. I did say that we will respect whatever decisions they have made. I offered palliative care. She said she will think it over. I requested case management to make an informational visit so she can make an informed decision. Thank you, CC: Dr. Bedoya
[2020-11-21] MEDS: acetaZOLAMIDE sodium 500 MG VIAL IVPUSH ×2 (08:54→20:47)
[2020-11-21] MEDS: Potassium Chloride ER 20 MEQ TAB.ER.PRT 40 MEQ PO (08:54)
[2020-11-21] MEDS: dilTIAZem HCL 30 MG TABLET PO (08:55)
[2020-11-21] MEDS: Cholecalciferol (Vitamin D3) 25 MCG TABLET PO (08:55)
[2020-11-21] MEDS: DULoxetine HCl 30 MG CAPSULE.DR PO (08:55)
[2020-11-21] MEDS: Apixaban 5 MG TABLET PO ×2 (08:55→20:25)
[2020-11-21] MEDS: oxyCODONE HCl Immed Release 5 MG TABLET PO ×3 (08:55→22:45)
[2020-11-21] MEDS: clonazePAM 1 MG TABLET PO ×2 (08:56→20:25)
[2020-11-21] MEDS: 0.9 % Sodium Chloride Flush 3 ML SYRINGE IVFLUSH ×3 (08:56→20:47)
--- NOTE | 2020-11-21 10:25 | MHC.CM.PN ---
received call from dr rincon who reports that pt is agreeable to a pallative imformational requested same from ns who pt is active with
--- NOTE | 2020-11-21 10:49 | P.PNIM_ITS ---
Subjective Subjective Date of Service: 11/21/20 <Gabriela Amanda NP - Last Filed: 11/21/20 11:06> 11/22/20 <Triston Berry MD - Last Filed: 11/22/20 16:05> Interval History: follow-up COPD exacerbation shortness of breath is improved sitting up in bed <Gabriela Amanda NP - Last Filed: 11/21/20 11:06> Physical Exam Vital Signs: Vital Signs: Last Vital Signs Temp 97.7 F 11/21/20 07:18 Pulse 72 11/21/20 08:55 Resp 18 11/21/20 07:18 BP 156/71 H 11/21/20 08:55 Pulse Ox 97 11/21/20 07:18 Oxygen Flow Rate 3 11/19/20 10:49 Body Mass Index 21.4 <Gabriela Amanda NP - Last Filed: 11/21/20 11:06> Appearing in no acute distress, thin and frail appearing lung sounds are clear to auscultation heart regular rate rhythm, clear S1, S2 positive bowel sounds, abdomen is soft, nontender neuro patient is alert x3, no focal deficits <Gabriela Amanda NP - Last Filed: 11/21/20 11:06> Objective Data Current Medications Generic Name Dose Route Start Last Admin Trade Name Freq PRN Reason Stop Dose Admin Acetaminophen 650 mg 11/19/20 20:00 Acetaminophen 325 Mg Tablet PO Q6H PRN Pain, Mild (Pain Scale 1-3) Acetazolamide 500 mg 11/19/20 21:00 11/21/20 08:54 Acetazolamide Sodium 500 Mg Vial IVPUSH 500 mg BID LUCY Administration Albuterol/Ipratropium 3 ml 11/19/20 20:00 11/21/20 07:47 Albuterol/Iprat 2.5/0.5mg 3 Ml Ampul.Neb INHALE 3 ml RQ4H WHILE AWAKE LUCY Administration Albuterol/Ipratropium 3 ml 11/20/20 00:27 Albuterol/Iprat 2.5/0.5mg 3 Ml Ampul.Neb INHALE RQ6H PRN Shortness of Breath/Wheezing Albuterol/Ipratropium 3 ml 11/20/20 00:28 11/20/20 01:31 Albuterol/Iprat 2.5/0.5mg 3 Ml Ampul.Neb INHALE 3 ml Q4H PRN Administration Shortness Of Breath Or Wheezing Apixaban 5 mg 11/20/20 10:45 11/21/20 08:55 Apixaban 5 Mg Tablet PO 5 mg BID LUCY Administration Azithromycin 500 mg 11/19/20 22:00 11/20/20 21:38 Azithromycin 500 Mg Tablet PO 500 mg Q24H LUCY Administration Clonazepam 1 mg 11/20/20 09:00 11/21/20 08:56 Clonazepam 1 Mg Tablet PO 1 mg BID LUCY Administration Diltiazem HCl 30 mg 11/20/20 10:45 11/21/20 08:55 Diltiazem Hcl 30 Mg Tablet PO 30 mg QID LUCY Administration Protocol Duloxetine HCl 30 mg 11/20/20 09:00 11/21/20 08:55 Duloxetine Hcl 30 Mg Capsule. PO 30 mg DAILY LUCY Administration Enoxaparin Sodium 40 mg 11/19/20 22:00 11/20/20 21:38 Enoxaparin Sodium 40 Mg/0.4 Ml Syringe SUBCUT 40 mg Q24H LUCY Administration Methylprednisolone Sodium Succinate 40 mg 11/19/20 21:00 11/21/20 08:54 Methylprednisolone Sod Succ 40 Mg/Ml Vial IVPUSH 40 mg Q6H LUCY Administration Omeprazole 20 mg 11/20/20 11:15 11/21/20 06:26 Omeprazole 20 Mg Capsule. PO Not Given DAILY@0630 [facility] Oxycodone HCl 5 mg 11/20/20 00:30 11/21/20 08:55 Oxycodone Hcl Immed Release 5 Mg Tablet PO 5 mg Q8H LUCY Administration Pharmacy Consult 1 each 11/19/20 17:07 Consult Rx Perform Med Rec MISCELLANE ONCE PRN Consult order Sodium Chloride 3 ml 11/20/20 00:00 11/21/20 08:56 0.9 % Sodium Chloride Flush 3 Ml Syringe IVFLUSH 3 ml QSHIFT [facility] Administration Tramadol HCl 50 mg 11/20/20 00:28 Tramadol Hcl 50 Mg Tablet PO BID PRN pain Valacyclovir HCl 1,000 mg 11/20/20 09:00 11/21/20 08:56 Valacycyclovir Hcl 1,000 Mg Tablet PO 1,000 mg TID [facility] Administration Vitamin D 25 mcg 11/20/20 09:00 11/21/20 08:55 Cholecalciferol (Vitamin D3) 25 Mcg Tablet PO 25 mcg DAILY LUCY Administration <Gabriela Amanda NP - Last Filed: 11/21/20 11:06> Labs CBC & Chem 7: : 11/21/20 06:10 11/21/20 06:10 <Gabriela Amanda NP - Last Filed: 11/21/20 11:06> Microbiology Microbiology Results: Microbiology 11/19/20 Unknown Urine clean catch - Clean Catch Midstream Urine Culture - Final <Gabriela Amanda NP - Last Filed: 11/21/20 11:06> Assessment and Plan (1) Mass of lung: Status: Acute <Gabriela Amanda NP - Last Filed: 11/21/20 11:06> Assessment and Plan: 80-year-old female with a past medical history of COPD, chronic respiratory failure on home oxygen, had history of started, post herpetic neurology a presented to the hospital with a chief complaint of generalized weakness and shortness of breath. Noted to have diminished lung sounds. Acute on chronic respiratory failure secondary to COPD exacerbation No consolidation -Solu-Medrol and DuoNebs. -Supplemental oxygen -Azithromycin Afib with RVR. Patient heart rate went up to 190 subsequently improved on its own without intervention. -cardizem Q6hs -echocardiogram. -Cardiology following ? CHF. Elevated BNP, no overt heart failure noted nephrology following - continue Diamox - echo pending Cavitary lung lesion and cavitary lesion. Chronic but increasing in size. 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 -palliative consult would be beneficial Metabolic alkalosis. Likely contraction. Will keep the patient on gentle IV fluids. ER team spoke to nephrology-recommended Diamox. Will await further recommendations from Nephrology in the morning in regards continue [place] of Diamox. DVT prophylaxis with Eliquis Full code Attending: Dr. Berry <Gabriela Amanda NP - Last Filed: 11/21/20 11:06>
--- NOTE | 2020-11-21 10:56 | MHC.CLN ---
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 PT DOES NOT WANT TO PURSUE FURTHER TX DIET RX: 2GM NA -PT MAY BENEFIT FROM LIBERALIZED DIET R/T ADVANCED AGE PO INTAKE VARIABLE AT THIS TIME 25/100% MONITOR PO INTAKE CLOSELY; IF DECLINE RECOMMEND ADDING ENSURE BID SEE ALSO CLINICAL NUTRITION ASSESSMENT
--- NOTE | 2020-11-21 11:04 | PM.PNNEP ---
Subjective Subjective Date of Service: 11/22/20 Interval history: Events noted Physical Exam Vital Signs: Vital Signs: Last Vital Signs Temp 97.7 F 11/21/20 07:18 Pulse 72 11/21/20 08:55 Resp 18 11/21/20 07:18 BP 156/71 H 11/21/20 08:55 Pulse Ox 97 11/21/20 07:18 Oxygen Flow Rate 3 11/19/20 10:49 Body Mass Index 21.4 Const: General: awake Neck: Neck: Yes supple Resp: Auscultation: rhonchi GI: Palpation (GI): Soft to palpation Auscultation: normal bowel sounds Neuro: Motor exam (neuro): No Asterixis during motor activity present Objective Data Labs CBC & Chem 7: 11/21/20 06:10 11/21/20 06:10 Labs: Laboratory Results - last 24 hr 11/20/20 11/21/20 11/21/20 10:44 06:10 06:10 WBC 9.7 RBC 3.88 L Hgb 11.5 L Hct 37.4 MCV 96.4 MCH 29.6 MCHC 30.7 L RDW 12.8 Plt Count 255 MPV 10.0 Absolute Nucleated RBC 0.000 Nucleated RBC % (auto) 0.0 Sodium 140 Potassium 3.2 L Chloride 97 Carbon Dioxide 31 H Anion Gap 15 BUN 27 H Creatinine 0.66 Estim Creat Clear Calc 46.3 Estimated GFR > 60 Random Glucose 144 H Calcium 9.6 Troponin I High Sens 73.4 H* B-Natriuretic Peptide 11/21/20 06:10 WBC RBC Hgb Hct MCV MCH MCHC RDW Plt Count MPV Absolute Nucleated RBC Nucleated RBC % (auto) Sodium Potassium Chloride Carbon Dioxide Anion Gap BUN Creatinine Estim Creat Clear Calc Estimated GFR Random Glucose Calcium Troponin I High Sens B-Natriuretic Peptide 186 H Microbiology Microbiology Results: Microbiology 11/19/20 Unknown Urine clean catch - Clean Catch Midstream Urine Culture - Final Assessment & Plan Time Spent With Patient Time: She chronic respiratory acidosis with a superimposed combined Resp Alkalosis AND metabolic alkalosis. The metabolic alkalosis is due to excessive use of furosemide. She does not have a hx of CHF and actually appears clinically hypovolemic presently. She has been given acetazolamide. I recommend, check urine Chloride, since this is probably a chloride sensitive alkalosis and she is not in CHF, that we start normal saline at 50 cc/hr and hold loop diuretics and stop acetazolamide for now Procedures Date of Service Date of Service: 11/21/20
--- NOTE | 2020-11-21 12:43 | PM.PNCARD ---
Subjective Subjective Date of Service: 11/21/20 <GERRY eSay - Last Filed: 11/21/20 13:06> 11/21/20 <Roger Gooden MD - Last Filed: 11/21/20 14:15> Principal diagnosis: Afib, elevated BNP <GERRY Seay - Last Filed: 11/21/20 13:06> Interval history: Cardiology follow up for the above. Seen at 0930. Today she reports feeling well. Breathing is comfortable. Not having any CP, palpitations, dizziness, edema. Slept well. <GERRY Seay - Last Filed: 11/21/20 13:06> Review of Systems Review of Systems as above <GERRY Seay Last Filed: 11/21/20 13:06> Yes all other systems are reviewed and are negative <GERRY Seay - Last Filed: 11/21/20 13:06> Physical Exam Vital Signs: Last Vital Signs Temp 97.3 F 11/21/20 11:25 Pulse 75 11/21/20 11:50 Resp 18 11/21/20 11:25 BP 137/60 11/21/20 11:25 Pulse Ox 96 11/21/20 11:25 Oxygen Flow Rate 3 11/19/20 10:49 Body Mass Index 21.4 <GERRY Seay - Last Filed: 11/21/20 13:06> Const General: cooperative, no acute distress, alert and awake <GERRY Seay - Last Filed: 11/21/20 13:06> Orientation/consciousness: patient oriented x3 <GERRY Seay - Last Filed: 11/21/20 13:06> Neck Neck: Yes normal visual inspection and Yes no JVD <GERRY Seay Last Filed: 11/21/20 13:06> Resp Effort & Inspection: normal respiratory effort, able to speak in complete sentences and not labored <GERRY Seay Last Filed: 11/21/20 13:06> Auscultation: clear to auscultation bilaterally, no rhonchi and no wheezes <STONE SeayC - Last Filed: 11/21/20 13:06> Cardio Palpation: normal PMI <Brii DunacnSTONEQamar - Last Filed: 11/21/20 13:06> Rate: regular rate <Brii DuncanSTONEQamar - Last Filed: 11/21/20 13:06> Rhythm: regular rhythm <Brii DuncanSTONEQamar - Last Filed: 11/21/20 13:06> Heart sounds: S1 normal heart sound present and S2 normal heart sound present <Brii DuncanSTONEC - Last Filed: 11/21/20 13:06> Peripheral pulses: Peripheral pulses 2+ throughout <Brii DuncanSTONEQamar - Last Filed: 11/21/20 13:06> Neuro General: patient oriented x3 <Brii DuncanGERRY - Last Filed: 11/21/20 13:06> Extrem General: Yes normal to inspection and No edema <Brii DuncanSTONEQamar - Last Filed: 11/21/20 13:06> Results Labs and Meds Result diagrams: : 11/21/20 06:10 11/21/20 06:10 <Brii DuncanGERRY - Last Filed: 11/21/20 13:06> Lab results: Laboratory Results - last 24 hr 11/21/20 11/21/20 11/21/20 06:10 06:10 06:10 WBC 9.7 RBC 3.88 L Hgb 11.5 L Hct 37.4 MCV 96.4 MCH 29.6 MCHC 30.7 L RDW 12.8 Plt Count 255 MPV 10.0 Absolute Nucleated RBC 0.000 Nucleated RBC % (auto) 0.0 Sodium 140 Potassium 3.2 L Chloride 97 Carbon Dioxide 31 H Anion Gap 15 BUN 27 H Creatinine 0.66 Estim Creat Clear Calc 46.3 Estimated GFR > 60 Random Glucose 144 H Calcium 9.6 B-Natriuretic Peptide 186 H <Brii DuncanGERRY - Last Filed: 11/21/20 13:06> Progress Note: A&P Assessment and plan (1) Paroxysmal atrial fibrillation: Status: Acute <Brii DuncanGERRY - Last Filed: 11/21/20 13:06> Assessment and Plan: New finding of PAF episodes when in ED. Converted back to SR. Tele shows ongoing SR, isolated PACs, rates 60-70s. Her Metoprolol had been changed to Diltiazem due to her COPD. Will change her to long acting Diltiazem CD 120mg daily. Has been started on Eliquis 2.5mg bid for anticoagulation. Echocardiogram to assess for structural heart ds is pending. Ongoing tele monitoring. If no significant abnormalities on echo, she can be discharged from a cardiology perspective and we can arrange for outpt cardiology follow up. <STONE SeayC - Last Filed: 11/21/20 13:06> (2) Elevated brain natriuretic peptide (BNP) level: Status: Acute <STONE SeayC - Last Filed: 11/21/20 13:06> Assessment and Plan: BNP elevated in 600s on admit without clinical signs of CHF. Her home lasix was stopped due to findings of metabolic alkalosis on labs. BNP this am is down to 186. She reports breathing is comfortable. <STONE SeayC - Last Filed: 11/21/20 13:06> (3) Metabolic alkalosis: Status: Acute <Brii Duncan NP-C - Last Filed: 11/21/20 13:06> Assessment and Plan: Lasix had been stopped. Labs improving. <Brii Duncan NP-C - Last Filed: 11/21/20 13:06> Fall Risk Details Current Medications: Current Medications Generic Name Dose Route Start Last Admin Trade Name Jackq PRN Reason Stop Dose Admin Acetaminophen 650 mg 11/19/20 20:00 Acetaminophen 325 Mg Tablet PO Q6H PRN Pain, Mild (Pain Scale 1-3) Acetazolamide 500 mg 11/19/20 21:00 11/21/20 08:54 Acetazolamide Sodium 500 Mg Vial IVPUSH 500 mg BID LUCY Administration Albuterol/Ipratropium 3 ml 11/19/20 20:00 11/21/20 11:43 Albuterol/Iprat 2.5/0.5mg 3 Ml Ampul.Neb INHALE 3 ml RQ4H WHILE AWAKE LUCY Administration Albuterol/Ipratropium 3 ml 11/20/20 00:27 Albuterol/Iprat 2.5/0.5mg 3 Ml Ampul.Neb INHALE RQ6H PRN Shortness of Breath/Wheezing Albuterol/Ipratropium 3 ml 11/20/20 00:28 11/20/20 01:31 Albuterol/Iprat 2.5/0.5mg 3 Ml Ampul.Neb INHALE 3 ml Q4H PRN Administration Shortness Of Breath Or Wheezing Apixaban 5 mg 11/20/20 10:45 11/21/20 08:55 Apixaban 5 Mg Tablet PO 5 mg BID LUCY Administration Azithromycin 500 mg 11/19/20 22:00 11/20/20 21:38 Azithromycin 500 Mg Tablet PO 500 mg Q24H LUCY Administration Clonazepam 1 mg 11/20/20 09:00 11/21/20 08:56 Clonazepam 1 Mg Tablet PO 1 mg BID LUCY Administration Diltiazem HCl 30 mg 11/20/20 10:45 11/21/20 08:55 Diltiazem Hcl 30 Mg Tablet PO 30 mg QID LUCY Administration Protocol Duloxetine HCl 30 mg 11/20/20 09:00 11/21/20 08:55 Duloxetine Hcl 30 Mg Capsule. PO 30 mg DAILY LUCY Administration Enoxaparin Sodium 40 mg 11/19/20 22:00 11/20/20 21:38 Enoxaparin Sodium 40 Mg/0.4 Ml Syringe SUBCUT 40 mg Q24H LUCY Administration Methylprednisolone Sodium Succinate 40 mg 11/19/20 21:00 11/21/20 08:54 Methylprednisolone Sod Succ 40 Mg/Ml Vial IVPUSH 40 mg Q6H LUCY Administration Omeprazole 20 mg 11/20/20 11:15 11/21/20 06:26 Omeprazole 20 Mg Capsule. PO Not Given DAILY@30 [facility] Oxycodone HCl 5 mg 11/20/20 00:30 11/21/20 08:55 Oxycodone Hcl Immed Release 5 Mg Tablet PO 5 mg Q8H LUCY Administration Pharmacy Consult 1 each 11/19/20 17:07 Consult Rx Perform Med Rec MISCELLANE ONCE PRN Consult order Sodium Chloride 3 ml 11/20/20 00:00 11/21/20 08:56 0.9 % Sodium Chloride Flush 3 Ml Syringe IVFLUSH 3 ml QSHIFT LUCY Administration Tramadol HCl 50 mg 11/20/20 00:28 Tramadol Hcl 50 Mg Tablet PO BID PRN pain Valacyclovir HCl 1,000 mg 11/20/20 09:00 11/21/20 08:56 Valacycyclovir Hcl 1,000 Mg Tablet PO 1,000 mg TID LUCY Administration Vitamin D 25 mcg 11/20/20 09:00 11/21/20 08:55 Cholecalciferol (Vitamin D3) 25 Mcg Tablet PO 25 mcg DAILY LUCY Administration <GERRY Seay - Last Filed: 11/21/20 13:06> Time Spent With Patient Time: Total time spent is greater than 50% in coordination of care (as documented) at patient's floor/unit and/or counseling patient: 20 <GERRY Seay - Last Filed: 11/21/20 13:06> Time with patient: 15 - 24 minutes <GERRY Seay - Last Filed: 11/21/20 13:06> Procedures Date of Service Date of Service: 11/21/20 <GERRY Seay - Last Filed: 11/21/20 13:06>
[2020-11-21] MEDS: dilTIAZem HCL CD 120 MG CAP.ER.DEG PO (14:30)
--- NOTE | 2020-11-21 14:57 | MHC.CM.PN ---
hvns/pallatilesleee met with pt to have an imformational
[2020-11-21 18:57] LABS: Chloride Urine Random < 20.0 mmol/L
[2020-11-21] MEDS: traMADoL HCL 50 MG TABLET PO (20:24)
[2020-11-21] MEDS: Enoxaparin Sodium 40 MG/0.4 ML SYRINGE SUBCUT (22:45)
[2020-11-21] MEDS: Azithromycin 500 MG TABLET PO (22:46)
[2020-11-22] VITALS (12 sets, daily range): BP systolic 138–156; BP diastolic 63–77; PULSE 75–120; RESP 12–22; TEMP 36.2–36.7; O2SAT 92–99
[2020-11-22] MEDS: methylPREDNISolone Sod Succ 40 MG/ML VIAL IVPUSH ×2 (03:13→09:27)
[2020-11-22] MEDS: Albuterol/Iprat 2.5/0.5MG 3 ML AMPUL.NEB INHALE ×4 (07:42→20:14)
[2020-11-22] MEDS: 0.9 % Sodium Chloride Flush 3 ML SYRINGE IVFLUSH ×2 (08:29→16:09)
--- NOTE | 2020-11-22 08:59 | PM.PNPUL ---
Subjective Subjective Date of Service: 11/22/20 Principal diagnosis: Afib, elevated BNP/copdand resp.failure Interval history: Claims that she feels better today but still weak and not able to get out of bed or walk. Her breathing status is same as usual, she has no respiratory distress. Cough and expectoration or very minimal. She remains a febrile Objective Data Labs CBC & Chem 7: 11/21/20 06:10 11/21/20 06:10 Labs: Laboratory Results - last 24 hr 11/21/20 13:15 Ur Random Chloride < 20.0 Microbiology Microbiology Results: Microbiology 11/19/20 Unknown Urine clean catch - Clean Catch Midstream Urine Culture - Final Review of Systems Review of Systems Patient expresses lot of general weakness. She has mild discomfort in the back. Breathing is same as usual. She denies any acute distress. Denies any gastrointestinal symptoms. Denies any urinary symptoms. Physical Exam Vital Signs: Vital Signs: Last Vital Signs Temp 97.4 F 11/22/20 07:52 Pulse 75 11/22/20 07:52 Resp 22 H 11/22/20 07:52 BP 152/72 H 11/22/20 07:52 Pulse Ox 94 11/22/20 07:52 Oxygen Flow Rate 3 11/19/20 10:49 Body Mass Index 21.4 Const: Other: Very weak and of thin build, General: comfortable, no acute distress, alert and awake Orientation/consciousness: patient oriented x3 HENMT: Head: Yes normal to inspection General nose exam: No nasal polyps present and No nasal discharge present Face and sinus: Yes sinuses nontender Mouth: oropharynx normal Throat: Yes posterior oropharynx normal Eyes: General: appearance normal, both eyes and all related structures Neck: Neck: Yes normal visual inspection, Yes no lymphadenopathy, Yes trachea midline and Yes no JVD Thyroid: Thyroid normal Chest: Other: Chest is very thin percussion note is hyper-resonant, There is no localized tenderness. Multiple purpura ex parts noted on the skin of chest Resp: Other: Breath sounds are distant with prolonged expiratory phase. No localized crepitations are heard. And there are no wheezes . Cardio: Palpation: normal PMI Rate: regular rate Rhythm: regular rhythm Heart sounds: Gallop heart sound present and Murmur heart sound present GI: Palpation (GI): Soft to palpation, nontender, No hepatosplenomegaly present and no masses Auscultation: normal bowel sounds Back/Spine/Pelvis: Thoracic/Lumbar Spine: thoracic and lumbar spine normal to inspection, thoraco-lumbar ROM limited and thoraco-lumbar spasm Skin: General skin exam: rashes and/or lesions noted (Lot of purpuric spots) Neuro: General: patient oriented x3 and no focal motor deficits Cranial nerves: Yes CN's II-XII intact bilaterally Extrem: General: Yes normal to inspection, Yes no clubbing, cyanosis or edema, Yes no calf tenderness and No venous stasis dermatitis Psych: Appearance: grossly normal Speech and movement: Normal speech and movement present Procedures Date of Service Date of Service: 11/22/20 Assessment and Plan Assessment and plan (1) COPD (chronic obstructive pulmonary disease): Problem details: ADVANCED COPD , MILD ACUTE EXACERBATION SEEMS TO HAVE IMPROVED. PLAN IS TO DC IV SOLU-MEDROL, AND SWITCHED TO PREDNISONE P.O. I WOULD SUGGEST WE KEEP HER ON 10 MG B.I.D. FOR NEXT 2 DAYS THEN SHE WILL GO BACK TO HER USUAL DAILY DOSE OF 10 MG IN A.M. 5 MG IN P.M., PATIENT HAS BEEN ON PREDNISONE CHRONICALLY AND SHE IS WELL AWARE OF THE RISKS AND SIDE EFFECTS. BUT HER RESPIRATORY STATUS DETERIORATES VERY QUICKLY WHEN THE DOSE OF PREDNISONE IS REDUCED TX PREDNISONE 10 MG IN A.M. 5 MG IN P.M. DUONEB UPDRAFTS Q 6 HOURS WHILE AWAKE VENTOLIN INH. HFA 2 PUFFS Q 4-6 HOURS P.R.N. Status: Acute (2) Respiratory failure with hypoxia and hypercapnia: Problem details: SHE DOES HAVE ADVANCED COPD WITH CHRONIC RESPIRATORY FAILURE, INCLUDING HYPOXEMIA AND HYPERCARBIA. RESPIRATORY STATUS IS FAIRLY WELL CONTROLLED, BUT SHE WILL CONTINUE TO REQUIRE OXYGEN. CONTINUE OXYGEN 2 TO 3L /MT, WITH POC. SINCE ADMISSION SHE IS NOTED TO HAVE A COMBINATION OF RESPIRATORY AND METABOLIC ALKALOSIS. SHE HAS BEEN ON ACETAZOLAMIDE, AND IV FLUIDS. VENOUS BLOOD GASES REPEATED TODAY TO MONITOR THE PROGRESS. Status: Acute (3) Lung mass: Problem details: A ROUNDED DENSITY IS NOTED IN LT.UPPER LOBE 1.3X1.8 CMS . NOW GROWN TO 2.5 BY 1.8 CM , SPICULATED. ANOTHER PULMONARY NODULE WITH WHAT A P IS TO BE CAVITATION IS SEEN IN THE APEX OF LEFT LUNG. THESE DENSITIES ARE MOST LIKELY NEOPLASTIC. DISCUSSED WITH THE PATIENT, AND SHE IS NOT AGREEABLE TO HAVE ANY FURTHER WORKUP OR TREATMENT FOR THIS. I CONCUR WITH HER DECISION BECAUSE SHE IS A VERY HIGH RISK FOR ANY PERCUTANEOUS NEEDLE BIOPSY ARE SURGERY. EVENTUALLY SHE WILL HAVE TO BE TREATED WITH COMFORT MEASURES AND MAY HAVE TO TRANSITION TO HOSPICE CARE . Status: Acute Time Spent With Patient Time: Total time spent is greater than 50% in coordination of care (as documented) at patient's floor/unit and/or counseling patient: Time with patient: 15 - 24 minutes
[2020-11-22] MEDS: oxyCODONE HCl Immed Release 5 MG TABLET PO ×2 (09:25→16:01)
[2020-11-22] MEDS: clonazePAM 1 MG TABLET PO ×2 (09:25→20:19)
[2020-11-22] MEDS: DULoxetine HCl 30 MG CAPSULE.DR PO (09:26)
[2020-11-22] MEDS: dilTIAZem HCL CD 120 MG CAP.ER.DEG PO (09:26)
[2020-11-22] MEDS: Apixaban 5 MG TABLET PO ×2 (09:26→20:20)
[2020-11-22] MEDS: Cholecalciferol (Vitamin D3) 25 MCG TABLET PO (09:26)
--- NOTE | 2020-11-22 10:29 | P.PNCA_ITS ---
Subjective Subjective Date of Service: 11/22/20 Principal diagnosis: Afib, elevated BNP/copdand resp.failure Interval history: No specific cardiac complaints at this time. Review of Systems Review of Systems Yes all other systems are reviewed and are negative Cardiovascular: Reports as per HPI, Reports no additional cardiovascular complaints, Denies acrocyanosis, Denies cool extremities, Denies painful fingertips, Denies chest pain, Denies chest pain at rest, Denies diaphoresis, Denies syncope, Denies irregular heart rhythm, Denies claudication, Denies leg edema, Denies lightheadedness, Denies palpitations and Reports dyspnea Respiratory: Reports dyspnea Denies syncope Endocrine: Denies palpitations Physical Exam Vital Signs: Last Vital Signs Temp 97.4 F 11/22/20 07:52 Pulse 75 11/22/20 09:26 Resp 22 H 11/22/20 07:52 BP 152/72 H 11/22/20 09:26 Pulse Ox 94 11/22/20 07:52 Oxygen Flow Rate 3 11/19/20 10:49 Body Mass Index 21.4 Const General: cooperative, comfortable and no acute distress Orientation/consciousness: patient oriented x3 HENOK Other: Unremarkable Neck Neck: Yes normal visual inspection Chest Chest palpation & inspection: normal inspection of the chest Resp Auscultation: diminished lung sounds Cardio Jugular venous distension: no JVD Palpation: normal PMI Heart sounds: S1 normal heart sound present, S2 normal heart sound present, no gallops, no murmurs and no rubs GI Palpation (GI): Soft to palpation Back/Spine/Pelvis Other: unremarkable Skin General skin exam: no rashes or lesions noted Neuro General: patient oriented x3 Extrem General: Yes no clubbing, cyanosis or edema Psych Mental Status: mental status grossly normal Results Labs and Meds Result diagrams: 11/21/20 06:10 11/21/20 06:10 Lab results: Laboratory Results - last 24 hr 11/21/20 13:15 Ur Random Chloride < 20.0 Progress Note: A&P Assessment and plan (1) Paroxysmal atrial fibrillation: Status: Acute (2) COPD (chronic obstructive pulmonary disease): Status: Acute (3) Chronic respiratory failure with hypoxia: Status: Acute (4) Elevated brain natriuretic peptide (BNP) level: Status: Acute Assessment and Plan: Echocardiogram shows hyperdynamic LVEF, mild diastolic dysfunction with elevated filling pressures and moderate mitral annular calcification. Initial EKG showed atrial fibrillation with rapid rate but currently in sinus rhythm. Clinically does not appear to be in heart failure. Continue diltiazem and Eliquis. Discussed with . Fall Risk Details Current Medications: Current Medications Generic Name Dose Route Start Last Admin Trade Name Freq PRN Reason Stop Dose Admin Acetaminophen 650 mg 11/19/20 20:00 Acetaminophen 325 Mg Tablet PO Q6H PRN Pain, Mild (Pain Scale 1-3) Albuterol/Ipratropium 3 ml 11/19/20 20:00 11/22/20 07:42 Albuterol/Iprat 2.5/0.5mg 3 Ml Ampul.Neb INHALE 3 ml RQ4H WHILE AWAKE LUCY Administration Albuterol/Ipratropium 3 ml 11/20/20 00:27 Albuterol/Iprat 2.5/0.5mg 3 Ml Ampul.Neb INHALE RQ6H PRN Shortness of Breath/Wheezing Albuterol/Ipratropium 3 ml 11/20/20 00:28 11/20/20 01:31 Albuterol/Iprat 2.5/0.5mg 3 Ml Ampul.Neb INHALE 3 ml Q4H PRN Administration Shortness Of Breath Or Wheezing Apixaban 5 mg 11/20/20 10:45 11/22/20 09:26 Apixaban 5 Mg Tablet PO 5 mg BID LUCY Administration Azithromycin 500 mg 11/19/20 22:00 11/21/20 22:46 Azithromycin 500 Mg Tablet PO 500 mg Q24H LUCY Administration Clonazepam 1 mg 11/20/20 09:00 11/22/20 09:25 Clonazepam 1 Mg Tablet PO 1 mg BID LUCY Administration Diltiazem HCl 120 mg 11/21/20 14:00 11/22/20 09:26 Diltiazem Hcl Cd 120 Mg Cap.Er.Deg PO 120 mg DAILY LUCY Administration Protocol Duloxetine HCl 30 mg 11/20/20 09:00 11/22/20 09:26 Duloxetine Hcl 30 Mg Capsule.Dr PO 30 mg DAILY LUCY Administration Enoxaparin Sodium 40 mg 11/19/20 22:00 11/21/20 22:45 Enoxaparin Sodium 40 Mg/0.4 Ml Syringe SUBCUT 40 mg Q24H LUCY Administration Methylprednisolone Sodium Succinate 40 mg 11/19/20 21:00 11/22/20 09:27 Methylprednisolone Sod Succ 40 Mg/Ml Vial IVPUSH 40 mg Q6H LUCY Administration Omeprazole 20 mg 11/20/20 11:15 11/22/20 06:10 Omeprazole 20 Mg Capsule.Dr PO Not Given DAILY@0630 [facility] Oxycodone HCl 5 mg 11/20/20 00:30 11/22/20 09:25 Oxycodone Hcl Immed Release 5 Mg Tablet PO 5 mg Q8H LUCY Administration Pharmacy Consult 1 each 11/19/20 17:07 Consult Rx Perform Med Rec MISCELLANE ONCE PRN Consult order Sodium Chloride 3 ml 11/20/20 00:00 11/22/20 08:29 0.9 % Sodium Chloride Flush 3 Ml Syringe IVFLUSH 3 ml QSHIFT [facility] Administration Tramadol HCl 50 mg 11/20/20 00:28 11/21/20 20:24 Tramadol Hcl 50 Mg Tablet PO 50 mg BID PRN Administration pain Valacyclovir HCl 1,000 mg 11/20/20 09:00 11/22/20 09:26 Valacycyclovir Hcl 1,000 Mg Tablet PO 1,000 mg TID LUCY Administration Vitamin D 25 mcg 11/20/20 09:00 11/22/20 09:26 Cholecalciferol (Vitamin D3) 25 Mcg Tablet PO 25 mcg DAILY LUCY Administration Time Spent With Patient Time: Total time spent is greater than 50% in coordination of care (as documented) at patient's floor/unit and/or counseling patient: Time with patient: less than 15 minutes Procedures Date of Service Date of Service: 11/22/20
--- NOTE | 2020-11-22 10:38 | PM.PNNEP ---
Subjective Subjective Date of Service: 11/22/20 Principal diagnosis: Afib, elevated BNP/copdand resp.failure Interval history: Events noted Physical Exam Vital Signs: Vital Signs: Last Vital Signs Temp 97.4 F 11/22/20 07:52 Pulse 75 11/22/20 09:26 Resp 22 H 11/22/20 07:52 BP 152/72 H 11/22/20 09:26 Pulse Ox 94 11/22/20 07:52 Oxygen Flow Rate 3 11/19/20 10:49 Body Mass Index 21.4 Const: General: awake Neck: Neck: Yes supple Resp: Auscultation: rhonchi GI: Palpation (GI): Soft to palpation Auscultation: normal bowel sounds Neuro: Motor exam (neuro): No Asterixis during motor activity present Objective Data Labs CBC & Chem 7: 11/21/20 06:10 11/21/20 06:10 Labs: Laboratory Results - last 24 hr 11/21/20 13:15 Ur Random Chloride < 20.0 Microbiology Microbiology Results: Microbiology 11/19/20 Unknown Urine clean catch - Clean Catch Midstream Urine Culture - Final Assessment & Plan Assessment and plan (1) COPD (chronic obstructive pulmonary disease): Status: Acute (2) Metabolic alkalosis: Status: Acute Assessment and Plan: She chronic respiratory acidosis with a superimposed combined Resp Alkalosis AND metabolic alkalosis. The metabolic alkalosis is due to excessive use of furosemide. Urine Chloride < 20 suggestive of Chloride responsive Met Alkalosis She does not have a hx of CHF and actually appears clinically hypovolemic presently. She has been given acetazolamide. I recommend : No need for IVF since tCO2 is down to 31 hold loop diuretics stop acetazolamide for now Replace K orally Disproportionate increase in BUN due to Steroids; Shall watch Time Spent With Patient Time: Total time spent is greater than 50% in coordination of care (as documented) at patient's floor/unit and/or counseling patient: Procedures Date of Service Date of Service: 11/22/20
--- NOTE | 2020-11-22 11:54 | HO.PM.IMPN ---
Subjective Subjective Date of Service: 11/22/20 Interval History: follow-up COPD exacerbation improved, but still with some shortness of breath which is mostly chronic Physical Exam Vital Signs: Vital Signs: Last Vital Signs Temp 97.5 F 11/22/20 11:39 Pulse 80 11/22/20 11:39 Resp 22 H 11/22/20 11:39 BP 138/77 11/22/20 11:39 Pulse Ox 97 11/22/20 11:39 Oxygen Flow Rate 3 11/19/20 10:49 Body Mass Index 21.4 Appearing in no acute distress lung sounds dim heart regular rate rhythm, clear S1, S2 positive bowel sounds, abdomen is soft, nontender neuro patient is alert x3, no focal deficits Objective Data Current Medications Generic Name Dose Route Start Last Admin Trade Name Freq PRN Reason Stop Dose Admin Acetaminophen 650 mg 11/19/20 20:00 Acetaminophen 325 Mg Tablet PO Q6H PRN Pain, Mild (Pain Scale 1-3) Albuterol/Ipratropium 3 ml 11/19/20 20:00 11/22/20 11:19 Albuterol/Iprat 2.5/0.5mg 3 Ml Ampul.Neb INHALE 3 ml RQ4H WHILE AWAKE LUCY Administration Albuterol/Ipratropium 3 ml 11/20/20 00:27 Albuterol/Iprat 2.5/0.5mg 3 Ml Ampul.Neb INHALE RQ6H PRN Shortness of Breath/Wheezing Albuterol/Ipratropium 3 ml 11/20/20 00:28 11/20/20 01:31 Albuterol/Iprat 2.5/0.5mg 3 Ml Ampul.Neb INHALE 3 ml Q4H PRN Administration Shortness Of Breath Or Wheezing Apixaban 5 mg 11/20/20 10:45 11/22/20 09:26 Apixaban 5 Mg Tablet PO 5 mg BID LUCY Administration Azithromycin 500 mg 11/19/20 22:00 11/21/20 22:46 Azithromycin 500 Mg Tablet PO 500 mg Q24H LUCY Administration Clonazepam 1 mg 11/20/20 09:00 11/22/20 09:25 Clonazepam 1 Mg Tablet PO 1 mg BID LUCY Administration Diltiazem HCl 120 mg 11/21/20 14:00 11/22/20 09:26 Diltiazem Hcl Cd 120 Mg Cap.Er.Deg PO 120 mg DAILY LUCY Administration Protocol Duloxetine HCl 30 mg 11/20/20 09:00 11/22/20 09:26 Duloxetine Hcl 30 Mg Capsule. PO 30 mg DAILY LUCY Administration Enoxaparin Sodium 40 mg 11/19/20 22:00 11/21/20 22:45 Enoxaparin Sodium 40 Mg/0.4 Ml Syringe SUBCUT 40 mg Q24H LUCY Administration Methylprednisolone Sodium Succinate 40 mg 11/19/20 21:00 11/22/20 09:27 Methylprednisolone Sod Succ 40 Mg/Ml Vial IVPUSH 40 mg Q6H LUCY Administration Omeprazole 20 mg 11/20/20 11:15 11/22/20 06:10 Omeprazole 20 Mg Capsule. PO Not Given DAILY@0630 [facility] Oxycodone HCl 5 mg 11/20/20 00:30 11/22/20 09:25 Oxycodone Hcl Immed Release 5 Mg Tablet PO 5 mg Q8H LUCY Administration Pharmacy Consult 1 each 11/19/20 17:07 Consult Rx Perform Med Rec MISCELLANE ONCE PRN Consult order Sodium Chloride 3 ml 11/20/20 00:00 11/22/20 08:29 0.9 % Sodium Chloride Flush 3 Ml Syringe IVFLUSH 3 ml QSHIFT LUCY Administration Tramadol HCl 50 mg 11/20/20 00:28 11/21/20 20:24 Tramadol Hcl 50 Mg Tablet PO 50 mg BID PRN Administration pain Valacyclovir HCl 1,000 mg 11/20/20 09:00 11/22/20 09:26 Valacycyclovir Hcl 1,000 Mg Tablet PO 1,000 mg TID LUCY Administration Vitamin D 25 mcg 11/20/20 09:00 11/22/20 09:26 Cholecalciferol (Vitamin D3) 25 Mcg Tablet PO 25 mcg DAILY LUCY Administration Labs CBC & Chem 7: 11/21/20 06:10 11/21/20 06:10 Labs: Laboratory Results - last 24 hr 11/21/20 13:15 Ur Random Chloride < 20.0 Assessment and Plan (1) Chronic respiratory failure with hypoxia: Status: Acute Assessment and Plan: 80-year-old female with a past medical history of COPD, chronic respiratory failure on home oxygen, had history of started, post herpetic neurology a presented to the hospital with a chief complaint of generalized weakness and shortness of breath. Noted to have diminished lung sounds. Acute on chronic respiratory failure secondary to COPD exacerbation No consolidation -Stop Solu-Medrol and switch to prednisone 10 mg b.i.d., continue DuoNebs, back to home dose of prednisone on dc -Supplemental oxygen -Azithromycin -VBG Hyponatremia. k 3.2 -repleted Afib with RVR. Patient heart rate went up to 190 subsequently improved on its own without intervention. -cardizem Q6hs -echocardiogram. -Cardiology following ? CHF. Elevated BNP, no overt heart failure noted No failure - nephrology following - stop Diamox - no lasix - echo pending Cavitary lung lesion and cavitary lesion. Chronic but increasing in size. 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 -palliative consult would be beneficial Metabolic alkalosis. Likely contraction. Will keep the patient on gentle IV fluids. ER team spoke to nephrology-recommended Diamox. Will await further recommendations from Nephrology in the morning in regards continue [place] of Diamox. DISPO: dc tomorrow if medically stable DVT prophylaxis with Eliquis Full code Attending: Dr. Berry
--- NOTE | 2020-11-22 17:19 | ECG_ITS ---
Test Reason : RHYTHM CHANGE Blood Pressure : / mmHG Vent. Rate : 112 BPM Atrial Rate : 241 BPM P-R Int : 000 ms QRS Dur : 072 ms QT Int : 294 ms P-R-T Axes : 000 006 078 degrees QTc Int : 401 ms Atrial fibrillation with rapid ventricular response Nonspecific T wave abnormality Abnormal ECG No significant changes when compared with the previous EKG of 20 november 2020 Referred By: Triston Berry Electronically Signed By:ZULEMA MARROQUIN
[2020-11-22] MEDS: dilTIAZem HCL 50 MG/10 ML VIAL IVPUSH (18:14)
[2020-11-22 18:17] LABS: Venous Blood Gas Refer to POC result
--- NOTE | 2020-11-22 19:15 | MHC.PIE ---
P: pt went into a rapid afib from a SR up to 140s. pt converting back and forth from afib to SR multiple times. pt asymptomatic. I: covering physician made aware. ekg obtained. 5 mg iv cardizem ordered and given. E: pt HR afib in low 100s
[2020-11-22] MEDS: Azithromycin 500 MG TABLET PO (20:18)
[2020-11-22] MEDS: predniSONE 10 MG TABLET PO (20:19)
[2020-11-22 20:35] LABS: VBG Base Excess 7.4 mmol/L; VBG HCO3 37 mmol/L (22-26); VBG pCO2 77 mmHg; VBG pH 7.28 (7.32-7.43); VBG pO2 112 mmHg
[2020-11-22 20:36] LABS: Venous Blood Gas Refer to POC result
[2020-11-23] VITALS (11 sets, daily range): BP systolic 132–151; BP diastolic 61–72; PULSE 80–96; RESP 16–22; TEMP 36.5–37.1; O2SAT 90–99
[2020-11-23] MEDS: 0.9 % Sodium Chloride Flush 3 ML SYRINGE IVFLUSH ×4 (00:55→21:23)
[2020-11-23] MEDS: Omeprazole 20 MG CAPSULE.DR PO (05:49)
[2020-11-23] MEDS: Albuterol/Iprat 2.5/0.5MG 3 ML AMPUL.NEB INHALE ×4 (07:07→20:14)
[2020-11-23] MEDS: predniSONE 10 MG TABLET PO ×2 (08:37→21:16)
[2020-11-23] MEDS: oxyCODONE HCl Immed Release 5 MG TABLET PO ×2 (08:37→16:09)
[2020-11-23] MEDS: Apixaban 5 MG TABLET PO ×2 (08:37→21:19)
[2020-11-23] MEDS: DULoxetine HCl 30 MG CAPSULE.DR PO (08:37)
[2020-11-23] MEDS: dilTIAZem HCL CD 120 MG CAP.ER.DEG PO (08:37)
[2020-11-23] MEDS: clonazePAM 1 MG TABLET PO ×2 (08:37→21:19)
[2020-11-23] MEDS: Cholecalciferol (Vitamin D3) 25 MCG TABLET PO (08:37)
[2020-11-23 09:15] LABS: VBG HCO3 41 mmol/L (22-26); VBG pCO2 79 mmHg; VBG pH 7.32 (7.32-7.43); VBG pO2 66 mmHg
[2020-11-23 09:16] LABS: Venous Blood Gas Refer to POC result
--- NOTE | 2020-11-23 09:55 | PM.PNNEP ---
Subjective Subjective Date of Service: 11/24/20 Principal diagnosis: Afib, elevated BNP/copdand resp.failure Interval history: Events noted Physical Exam Vital Signs: Vital Signs: Last Vital Signs Temp 97.7 F 11/23/20 07:44 Pulse 84 11/23/20 08:37 Resp 21 H 11/23/20 07:44 BP 140/68 H 11/23/20 08:37 Pulse Ox 95 11/23/20 07:44 Oxygen Flow Rate 3 11/19/20 10:49 Body Mass Index 21.4 Const: General: awake Neck: Neck: Yes supple Resp: Auscultation: rhonchi GI: Palpation (GI): Soft to palpation Auscultation: normal bowel sounds Neuro: Motor exam (neuro): No Asterixis during motor activity present Objective Data Labs CBC & Chem 7: 11/21/20 06:10 11/21/20 06:10 Labs: Laboratory Results - last 24 hr 11/22/20 11/23/20 20:28 09:08 VBG pH 7.28 L 7.32 VBG pCO2 77 79 VBG pO2 112 66 VBG HCO3 37 H 41 H VBG O2 Saturation 98.0 91.0 VBG Base Excess 7.4 12.0 Microbiology Microbiology Results: Microbiology 11/19/20 Unknown Urine clean catch - Clean Catch Midstream Urine Culture - Final Assessment & Plan Assessment and plan (1) COPD (chronic obstructive pulmonary disease): Status: Acute (2) Metabolic alkalosis: Status: Acute Assessment and Plan: She chronic respiratory acidosis with a superimposed combined Resp Alkalosis AND metabolic alkalosis. The metabolic alkalosis is due to excessive use of furosemide. Urine Chloride < 20 suggestive of Chloride responsive Met Alkalosis She does not have a hx of CHF and actually appears clinically hypovolemic presently. She has been given acetazolamide. recommend : No need for IVF since tCO2 is down to 31 Can restart Lasix in 24 - 48 hrs if needed stop acetazolamide for now Replace K orally Disproportionate increase in BUN due to Steroids; Shall watch Time Spent With Patient Time: Total time spent is greater than 50% in coordination of care (as documented) at patient's floor/unit and/or counseling patient: Procedures Date of Service Date of Service: 11/23/20
--- NOTE | 2020-11-23 12:04 | P.PNIM_ITS ---
Subjective Subjective Date of Service: 11/23/20 Interval History: seen and examined this AM with bedside pt reports improved compared to yesterday, but still not close to baseline had an episode of a. fib with rvr yesterday ROS General - weakness Cardiovascular - no chest pain Respiratory - +SOB Abdominal- no abdominal pain, nausea, vomiting, diarrhea Physical Exam Vital Signs: Vital Signs: Last Vital Signs Temp 98.6 F 11/23/20 11:37 Pulse 85 11/23/20 11:44 Resp 22 H 11/23/20 11:37 BP 132/64 11/23/20 11:37 Pulse Ox 96 11/23/20 11:37 Oxygen Flow Rate 3 11/19/20 10:49 Body Mass Index 21.4 Const: Other: General - no acute distress, appears comfortable Cardiovascular - S1S2 Lungs - dim sounds, distress wwith accessory muscle use with min exertion Abdomen - soft, nontender, no rebound or guarding Extremities - no edema bilaterally Neuro - awake and alert, no focal deficits Objective Data Current Medications Generic Name Dose Route Start Last Admin Trade Name Jackq PRN Reason Stop Dose Admin Acetaminophen 650 mg 11/19/20 20:00 Acetaminophen 325 Mg Tablet PO Q6H PRN Pain, Mild (Pain Scale 1-3) Albuterol/Ipratropium 3 ml 11/19/20 20:00 11/23/20 11:41 Albuterol/Iprat 2.5/0.5mg 3 Ml Ampul.Neb INHALE 3 ml RQ4H WHILE AWAKE LUCY Administration Albuterol/Ipratropium 3 ml 11/20/20 00:27 Albuterol/Iprat 2.5/0.5mg 3 Ml Ampul.Neb INHALE RQ6H PRN Shortness of Breath/Wheezing Albuterol/Ipratropium 3 ml 11/20/20 00:28 11/20/20 01:31 Albuterol/Iprat 2.5/0.5mg 3 Ml Ampul.Neb INHALE 3 ml Q4H PRN Administration Shortness Of Breath Or Wheezing Apixaban 5 mg 11/20/20 10:45 11/23/20 08:37 Apixaban 5 Mg Tablet PO 5 mg BID LUCY Administration Artificial Tears 1 drop 11/22/20 18:03 Artificial Tears 15 Ml Drops EYE-BOTH Q4H PRN Dry Eyes Azithromycin 500 mg 11/19/20 22:00 11/22/20 20:18 Azithromycin 500 Mg Tablet PO 500 mg Q24H LUCY Administration Clonazepam 1 mg 11/20/20 09:00 11/23/20 08:37 Clonazepam 1 Mg Tablet PO 1 mg BID LUCY Administration Diltiazem HCl 120 mg 11/21/20 14:00 11/23/20 08:37 Diltiazem Hcl Cd 120 Mg Cap.Er.Deg PO 120 mg DAILY LUCY Administration Protocol Duloxetine HCl 30 mg 11/20/20 09:00 11/23/20 08:37 Duloxetine Hcl 30 Mg Capsule. PO 30 mg DAILY LUCY Administration Omeprazole 20 mg 11/20/20 11:15 11/23/20 05:49 Omeprazole 20 Mg Capsule. PO 20 mg DAILY@0630 LUCY Administration Oxycodone HCl 5 mg 11/20/20 00:30 11/23/20 08:37 Oxycodone Hcl Immed Release 5 Mg Tablet PO 5 mg Q8H LUCY Administration Pharmacy Consult 1 each 11/19/20 17:07 Consult Rx Perform Med Rec MISCELLANE ONCE PRN Consult order Prednisone 10 mg 11/22/20 21:00 11/23/20 08:37 Prednisone 10 Mg Tablet PO 10 mg BID LUCY Administration Sodium Chloride 3 ml 11/20/20 00:00 11/23/20 08:39 0.9 % Sodium Chloride Flush 3 Ml Syringe IVFLUSH 3 ml QSHIFT LUCY Administration Tramadol HCl 50 mg 11/20/20 00:28 11/21/20 20:24 Tramadol Hcl 50 Mg Tablet PO 50 mg BID PRN Administration pain Valacyclovir HCl 1,000 mg 11/20/20 09:00 11/23/20 08:37 Valacycyclovir Hcl 1,000 Mg Tablet PO 1,000 mg TID LUCY Administration Vitamin D 25 mcg 11/20/20 09:00 11/23/20 08:37 Cholecalciferol (Vitamin D3) 25 Mcg Tablet PO 25 mcg DAILY LUCY Administration Labs CBC & Chem 7: 11/21/20 06:10 11/21/20 06:10 Labs: Laboratory Results - last 24 hr 11/22/20 11/23/20 20:28 09:08 VBG pH 7.28 L 7.32 VBG pCO2 77 79 VBG pO2 112 66 VBG HCO3 37 H 41 H VBG O2 Saturation 98.0 91.0 VBG Base Excess 7.4 12.0 Quality Stroke Does the patient have a stroke diagnosis?: No VTE Prior VTE?: No VTE Risk Level:: Medical - moderate - high VTE Device Contraindication: N/A - Device Ordered VTE Drug Contraindication: N/A - Med Ordered Assessment and Plan (1) Chronic respiratory failure with hypoxia: Status: Acute Assessment and Plan: 80-year-old female with a past medical history of COPD, chronic respiratory failure on home oxygen, had history of started, post herpetic neurology a presented to the hospital with a chief complaint of generalized weakness and shortness of breath. Noted to have diminished lung sounds. Acute on chronic respiratory failure secondary to COPD exacerbation O2 requirements at baseline pretnidonse taper -- 10mg bid today, then her usual 10am/5pm starting tomorrow Hyponatremia. k 3.2 repleted A. Fib RVR intermittently goes up likely compensatory fromher chronic lung disease on cardizem and eliquis Cavitary lung lesion and cavitary lesion. Chronic but increasing in size. Patient declining any aggressive management/treatment has had this discussion with her continuous still operator. will be transitioned to palliative care upon d/c Metabolic alkalosis. resolved DNR/TAM Ritter dispo: home tomorrow with palliative care
[2020-11-23] MEDS: Artificial Tears 15 ML DROPS 1 DROP EYE-BOTH (18:09)
[2020-11-23] MEDS: traMADoL HCL 50 MG TABLET PO (21:15)
[2020-11-23] MEDS: Azithromycin 500 MG TABLET PO (21:20)
[2020-11-24 04:00] VITALS: BP 138/63; PULSE 83; RESP 20; TEMP 36.4; O2SAT 98
[2020-11-24] MEDS: Omeprazole 20 MG CAPSULE.DR PO (05:33)
[2020-11-24 07:30] VITALS: BP 123/67; PULSE 86; RESP 23; TEMP 36.7; O2SAT 98
[2020-11-24 08:19] VITALS: BP 123/67; PULSE 86
[2020-11-24] MEDS: DULoxetine HCl 30 MG CAPSULE.DR PO (08:19)
[2020-11-24] MEDS: predniSONE 10 MG TABLET PO (08:19)
[2020-11-24] MEDS: dilTIAZem HCL CD 120 MG CAP.ER.DEG PO (08:19)
[2020-11-24] MEDS: oxyCODONE HCl Immed Release 5 MG TABLET PO (08:20)
[2020-11-24] MEDS: Artificial Tears 15 ML DROPS 1 DROP EYE-BOTH (08:20)
[2020-11-24] MEDS: 0.9 % Sodium Chloride Flush 3 ML SYRINGE IVFLUSH (08:20)
[2020-11-24] MEDS: Apixaban 5 MG TABLET PO (08:20)
[2020-11-24] MEDS: clonazePAM 1 MG TABLET PO (08:20)
[2020-11-24] MEDS: Cholecalciferol (Vitamin D3) 25 MCG TABLET PO (08:20)
[2020-11-24 09:41] VITALS: PULSE 90; O2SAT 97
[2020-11-24] MEDS: Albuterol/Iprat 2.5/0.5MG 3 ML AMPUL.NEB INHALE (09:41)
--- NOTE | 2020-11-24 11:05 | PM.DS ---
DS: Providers Provider Date of Service: 11/24/20 Date of admission: 11/19/20 20:00 Primary care physician: Rolo Ford MD Consults: 11/19/20 18:14 Consult to Nephrology Stat Consulting Provider: Lam Eli Reason for consultation: elevated bicarb Has provider been notified: Yes 11/19/20 20:00 Consult to Cardiology Routine Consulting Provider: Cameron Mijares Reason for consultation: indeterminate trops; dyspnea Consult to Nephrology Routine Consulting Provider: Marino Haji Reason for consultation: Alkalosis Consult to Pulmonology Routine Consulting Provider: Jesse Lainez Reason for consultation: SOB; 11/19/20 20:04 Consult to Hematology / Oncology Routine Consulting Provider: Lulu Camara Reason for consultation: spiculated lung mass; increased in size 11/20/20 02:50 Consult to Cardiology Routine Consulting Provider: Cameron Mijares Reason for consultation: afib with RVR; hx SVT; ?anticoagulation DS: Diagnosis Discharge Diagnosis (1) Acute and chronic respiratory failure with hypoxia: Status: Acute (2) Atrial fibrillation with RVR: Status: Acute (3) Acute CHF (congestive heart failure): Status: Acute (4) Mass of lung: Status: Acute (5) Post herpetic neuralgia: Status: Acute (6) Elevated brain natriuretic peptide (BNP) level: Status: Acute (7) End stage COPD: Status: Acute DS: Medications Discharge Medications Home Medications: Home Medications Medication Instructions Recorded Confirmed calcium carbonate 600 mg calcium 600 mg PO DAILY 03/28/20 11/19/20 (1,500 mg) tablet furosemide 40 mg tablet 40 mg PO Q OTHER DAY 07/04/20 11/19/20 cholecalciferol (vitamin D3) 25 mcg PO DAILY 08/04/20 11/19/20 ipratropium-albuterol 3 ml INHALATION Q4H PRN 08/04/20 11/19/20 vitamin B complex 1 cap PO DAILY 08/04/20 11/19/20 Previous Rx's Medication Instructions Recorded omeprazole 20 mg capsule,delayed 20 mg PO DAILY #90 cap 07/16/20 release duloxetine 30 mg capsule,delayed 30 mg PO DAILY #90 cap 08/09/20 release oxycodone 5 mg tablet 5 mg PO Q8H 7 Days #21 tab 08/18/20 Ventolin HFA 90 mcg/actuation 2 puff INHALATION Q4-6H PRN 30 09/20/20 aerosol inhaler Days g NS albuterol sulfate 90 mcg/actuation 2 puff INHALATION Q4-6H PRN 30 09/20/20 aerosol inhaler Days #8.5 g tramadol 50 mg tablet 50 mg PO BID PRN 30 Days #60 tab 10/07/20 nystatin 400,000 unit PO QID #480 ml 10/25/20 prednisone 5 mg tablet 5 mg PO DAILY #30 tab 10/31/20 gabapentin 300 mg capsule 300 mg PO TID #90 cap 11/06/20 clonazepam 1 mg tablet 1 mg PO BID 30 Days #60 tab 11/17/20 prednisone 10 mg tablet 10 mg PO DAILY #30 tab 11/21/20 apixaban [Eliquis] 2.5 mg PO BID #60 tab 11/24/20 diltiazem HCl [Cardizem CD] 120 mg PO DAILY #30 cap 11/24/20 DS: Summary Hospital Course Hospital Course: Patient presented with respiratory complaints and was diagnosed with flare-up over end-stage COPD. She was treated with IV systemic steroids and bronchodilators. She was subsequently transitioned to oral prednisone and will be discharged on her home dose of prednisone 10 mg in the a.m. and 5 in the p.m.. Patient was also noted to have new onset atrial fibrillation with rapid ventricular response. She kept going in and out of AFib. She was on metoprolol but in light her for COPD this was switched to Cardizem. She was also started on Eliquis which she will be discharged on at 2.5 mg twice daily (age and weight). Lastly she has a known lung mass which given her history of tobacco use is highly suspicious for malignancy. She has opted no further workup for this. Palliative care services were sought and she will be following up with them on an outpatient basis. Time Spent with Patient Time attestation: Total time spent providing and/or coordinating discharge services: Discharge coordination time: Greater than 30 minutes Quality: Stroke Does the patient have a stroke diagnosis?: No Physical Exam Vital Signs: Vital Signs: Last Vital Signs Temp 98.1 F 11/24/20 07:30 Pulse 90 11/24/20 09:41 Resp 23 H 11/24/20 07:30 BP 123/67 11/24/20 08:19 Pulse Ox 98 11/24/20 07:30 Oxygen Flow Rate 3 11/19/20 10:49 Body Mass Index 21.4 Const: Other: General - appears comfortable, frail Cardiovascular - S1S2 Lungs - diminished Abdomen - soft, nontender, no rebound or guarding Extremities - no edema bilaterally Neuro - awake and alert, no focal deficits Discharge Plan Discharge Patient Disposition: Home Health Service Discharge Diagnosis: End Stage COPD, New onset A. Fib Referrals: [facility] [Outside] - 1 Week Rolo Ford MD [Primary Care Provider] - 1 Week Discharge Medications: New diltiazem HCl [Cardizem CD] 120 mg Capsule,Extended Release 24hr 120 mg PO DAILY Qty: 30 RF: 0 Eliquis 2.5 mg tablet 2.5 mg PO BID Qty: 60 RF: 0 Continued omeprazole 20 mg capsule,delayed release(DR/EC) 20 mg PO DAILY Qty: 90 RF: 1 tramadol 50 mg tablet 50 mg PO BID PRN (Reason: pain) 30 Days Qty: 60 RF: 0 prednisone 5 mg tablet 5 mg PO DAILY Qty: 30 RF: 0 gabapentin 300 mg capsule 300 mg PO TID Qty: 90 RF: 0 clonazepam 1 mg tablet 1 mg PO BID 30 Days Qty: 60 RF: 0 prednisone 10 mg tablet 10 mg PO DAILY Qty: 30 RF: 5 vitamin B complex Capsule 1 cap PO DAILY RF: 0 cholecalciferol (vitamin D3) 25 mcg (1,000 unit) Tablet 25 mcg PO DAILY RF: 0 ipratropium-albuterol 0.5 mg-3 mg(2.5 mg base)/3 mL solution for nebulization 3 ml inhalation Q4H PRN (Reason: Shortness Of Breath Or Wheezing) RF: 0 nystatin 100,000 unit/mL suspension 400,000 unit PO QID Qty: 480 RF: 2 oxycodone 5 mg tablet 5 mg PO Q8H 7 Days Qty: 21 RF: 0 furosemide 40 mg tablet 40 mg PO Q OTHER DAY RF: 0 duloxetine 30 mg capsule,delayed release(DR/EC) 30 mg PO DAILY Qty: 90 RF: 1 calcium carbonate [Calcium 600] 600 mg calcium (1,500 mg) tablet 600 mg PO DAILY RF: 0 albuterol sulfate [Ventolin HFA] 90 mcg/actuation HFA aerosol inhaler 2 puff inhalation Q4-6H PRN (Reason: shortness of breath or wheezing) 30 Days Qty: 8.5 RF: 3 Discontinued metoprolol succinate 50 mg tablet extended release 24 hr 50 mg PO DAILY Qty: 90 RF: 1 valacyclovir 1 gram tablet 1,000 mg PO TID 10 Days Qty: 30 RF: 0 Discharge Orders: Discharge Order (Routine); Ordered 11/24/20 Ordered By: Triston Berry Diet: advance to usual diet Activity on Discharge: As tolerated Stand Alone Forms: Patient Portal Discharge page Care Plan Goals: To stay healthy and out of the hospital. Health Concerns: End Stage COPD New onset PAF Plan of Treatment: Continue inhalers and prednisone Start Cardizem (stop metoprolol) and start eliquis Assessment: 80 F with End Stage COPD and lung mass (likely cancer). Treated for acute flare and will be d/c home on pallative care. Also found to have new onset A. Fib.
--- NOTE | 2020-11-24 11:21 | MHC.CM.PN ---
PT CLEARED TO DC HOME TODAY WITH [facility] WITH A POTENTIAL PLAN TO TRANSITION TO PALLIATIVE CARE. TO TRANSPORT
--- NOTE | 2020-11-25 10:56 | CONS_ITS ---
DATE OF SERVICE: 11/21/2020 HISTORY OF PRESENT ILLNESS: This 80-year-old female is well known case of advanced chronic obstructive pulmonary disease, chronic respiratory failure, and also has had a pulmonary density in the left upper lobe for a while. The patient is admitted mainly because of generalized weakness for a few weeks which is worse over the past few days. The patient denies any fever, chills, or chest discomfort. However, she continues to have some hyperesthesia in the left chest wall due to the herpes zoster, which she had many months ago. For her advanced chronic obstructive pulmonary disease, she has been on maximum medical treatment for the last few years. She continues to be on prednisone 15 mg a day because each time we try to cut it down her symptoms got worse. She tends to be anxious and sometimes may hyperventilate for short periods. For the past 6 months or so, she is known to have density in left upper lobe about 1.8 cm in size. She had declined to undergo any invasive diagnostic procedure or treatment because of the advanced COPD that she has. This patient stays mostly in the house. She does walk in the house with a walker, but outdoors, she is in the wheelchair. She is on oxygen 2 L/minute continuously. PHYSICAL EXAMINATION: GENERAL: 80-year-old female of a thin built, in good spirits. She is moderately short of breath as usual, but does not seem to be in acute distress. VITAL SIGNS: At present, her respiratory rate is 16, heart rate 93, blood pressure 130/62, O2 saturation 97% on 3 L/minute. EAR, NOSE, THROAT: Examination is normal. NECK: No lymphadenopathy. Trachea midline. CHEST: Symmetrical, percussion note hyper-resonant. Breath sounds are very distant with prolonged expiratory phase. No wheezes or rhonchi are heard. CARDIAC: Sounds are distant. Rhythm regular. No murmurs. ABDOMEN: Flat, soft, and nontender. EXTREMITIES: No pitting edema. Peripheral pulses faintly palpable. No evidence of phlebitis. SKIN: She has widespread ecchymotic spots especially in front of her chest. DIAGNOSTIC STUDIES: CT scan of the chest is reviewed and she does have changes of chronic obstructive pulmonary disease. In addition, she has an irregular-shaped density in the left upper lobe which is spiculated and the size 2.5 x 1.4 which is slightly increased from 1.8 cm x 1.3 cm in the previous CT scan. In addition, there is a thin-walled cavitary type looking lesion in the apical area of the left upper lobe. However, there is no fluid level. This may be a small density covered by distorted vascular or bronchial structures. LABORATORY DATA: White cell count 9.7, hemoglobin 11.2, hematocrit 37. Serology negative for COVID test. On admission, arterial blood gases showed pH 7.56, pCO2 63, PO2 of 206. Her venous bicarb was 57, which is quite elevated. CLINICAL IMPRESSION: Acute exacerbation of chronic obstructive pulmonary disease. Patient does have advanced chronic obstructive pulmonary disease, but does not seem to have any acute infection at this time. Densities in the left upper lobe, most likely neoplastic in nature. The patient has declined to undergo any invasive diagnostic procedures or any further treatment. Chronic respiratory failure with hypercapnia and hypoxemia. Currently, patient has respiratory acidosis and metabolic alkalosis. RECOMMENDATIONS: Agree with the current treatment with DuoNeb updrafts q.4 hours while awake and p.r.n. Methylprednisolone 40 mg IV q.6 hours for 1 day, then the dose should be cut down. Azithromycin 500 mg IV daily. This is empirically for possibility of infection. Oxygen 3 L/minute. We will repeat her venous blood gas to make sure that her hypercapnia is not getting any worse. Thank you very much for asking me to see this patient and I will be glad to follow her along. MD CYNDY Sheriff/TANVIR / [phone]
== END 2020-11-24 11:59 | disposition home health service (06) | DRG 190 ==
LOC: HO.ED 19:46 → HO.EDOVER 20:47 → HO.IMC 11-20 14:35
PROVIDERS: Internal Medicine; Internal Medicine Hypertension Specialist; Nurse Practitioner Acute Care; Physician Assistant; Admitting Provider Hospitalist; Emergency Provider Emergency Medicine Emergency Medical Services; PCP Internal Medicine; Visit Provider Family Medicine
DX: J44.1 Chronic obstructive pulmonary disease with (acute) exacerbation (principal); J96.21 Acute and chronic respiratory failure with hypoxia; N39.0 Urinary tract infection, site not specified; C34.12 Malignant neoplasm of upper lobe, left bronchus or lung; E87.4 Mixed disorder of acid-base balance; E87.1 Hypo-osmolality and hyponatremia; I48.0 Paroxysmal atrial fibrillation; Z20.822 Contact with and (suspected) exposure to COVID-19; Z99.81 Dependence on supplemental oxygen; Z88.0 Allergy status to penicillin; Z88.5 Allergy status to narcotic agent; Z79.01 Long term (current) use of anticoagulants; Z79.899 Other long term (current) drug therapy; Z66 Do not resuscitate
CPT/HCPCS: 36415; 71250; 80048; 81001; 81003; 82436; 82550; 83735; 83880; 84100; 84484; 85025; 85027; 85379; 87086; 87635; 93005; 93306; 94640; 99285; J1650; J1940; J2920; J3010

== ENCOUNTER → 2020-12-20 11:01 | Outpatient (BNVA) | payer MEDICARE, SELFPAY | PROVIDERS: PCP Internal Medicine; Visit Provider Internal Medicine | DX: J44.9 Chronic obstructive pulmonary disease, unspecified (principal); J96.21 Acute and chronic respiratory failure with hypoxia; I50.9 Heart failure, unspecified; B02.29 Other postherpetic nervous system involvement | CPT/HCPCS: 99212 ==

== ENCOUNTER → 2021-01-24 11:20 | Outpatient (BNVA) | payer MEDICARE, SELFPAY | PROVIDERS: PCP Internal Medicine; Visit Provider Internal Medicine | CPT/HCPCS: Q3014 ==